=== PATIENT | male | born 1970 | race Caucasian/White ===

== ENCOUNTER 2017-01-04 16:05 | Inpatient (IN) | payer OTHER ==
[2017-01-04 17:27] VITALS: BMI 20.8
--- NOTE | 2017-01-04 19:01 | HP ---
[id number] [id number] Restless Observation: 0= Sits Still Pupil Size: 1= Pupils >than Normal Bone or Joint Aches: 2= Severe Diffuse Aches Runny Nose/ Eye Tearin= Runny Nose/Eyes GI Upset > 30mins: 1= Stomach Cramp Tremor Observation: 2= Slight Tremor Visible Yawning Observation: 1= 1-2x During Session Anxiety or Irritability: 2=Irritable/Anxious Goose Flesh Skin: 3=Piloerection COWS Score: 16 CIWA Score - CIWA Score Nausea/Vomitin-Mild Nausea/No Vomiting Muscle Tremors: 4-Moderate,w/Arms Extend Anxiety: 4-Mod. Anxious/Guarded Agitation: 4-Moderately Restless Paroxysmal Sweats: 1-Minimal Palms Moist Orientation: 3-Disoriented Date>2 days Tacttile Disturbances: 0-None Auditory Disturbances: 0-None Visual Disturbances: 0-None Headache: 0-None Present CIWA-Ar Total Score: 17 Admission ROS S - HPI Chief Complaint: WITHDRAWAL SX Allergies/Adverse Reactions: Allergies Allergy/AdvReac Type Severity Reaction Status Date / Time Fish Containing Products Allergy Intermediate Rash Verified 01/04/17 18:12 No Known Drug Allergies Allergy Verified 01/04/17 18:12 History of Present Illness: 46 YEARS OLD MALE WITH LONG HISTORY OF OPIATE AND ALCOHOL NICOTINE DEPENDENCE, DENIES MEDICAL ISSUE HAS DEPRESSION LONGEST SOBRIETY 6 MONTHS IS ADMITTED TO DETOX Exam Limitations: No Limitations - Ebola screening Have you traveled outside of the country in the last 21 days: No Have you had contact with anyone from an Ebola affected area: No Have you been sick,other than usual withdrawal symptoms: No Do you have a fever: No - Review of Systems Constitutional: Chills, Loss of Appetite, Changes in sleep, Unintentional Wgt. Loss EENT: reports: Dental Problems (2008 TEETH CRACK) Respiratory: reports: No Symptoms reported Cardiac: reports: No Symptoms Reported GI: reports: Nausea, Poor Appetite, Poor Fluid Intake, Abdominal cramping : reports: No Symptoms Reported Musculoskeletal: reports: Back Pain, Joint Pain, Muscle Pain, Neck Pain Integumentary: reports: Change in Color (INNER ELBOWS) Neuro: reports: Tremors Endocrine: reports: No Symptoms Reported Hematology: reports: No Symptoms Reported Psychiatric: reports: Judgement Intact, Orientated x3, Anxious Other Systems: Reviewed and Negative Patient History - Patient Medical History Hx Anemia: No Hx Asthma: No Hx Chronic Obstructive Pulmonary Disease (COPD): No Hx Cancer: No Hx Cardiac Disorders: No Hx Congestive Heart Failure: No Hx Hypertension: No Hx Hypercholesterolemia: No Hx Pacemaker: No HX Cerebrovascular Accident: No Hx Seizures: No Hx Dementia: No Hx Diabetes: No Hx Gastrointestinal Disorders: No Hx Liver Disease: Yes (untreated hep c) Hx Genitourinary Disorders: No Hx Sexually Transmitted Disorders: No Hx Renal Disease (ESRD): No Hx Thyroid Disease: No Hx Human Immunodeficiency Virus (HIV): No (NEGATIVE HX) Hx Hepatitis C: Yes (Not treated) Hx Depression: Yes (NOT CURRENTLY ON MEDS) Hx Suicide Attempt: No (DENIES) Hx Bipolar Disorder: No Hx Schizophrenia: No - Patient Surgical History Past Surgical History: No Hx Neurologic Surgery: No Hx Cataract Extraction: No Hx Cardiac Surgery: No Hx Lung Surgery: No Hx Breast Surgery: No Hx Breast Biopsy: No Hx Abdominal Surgery: No Hx Appendectomy: No Hx Cholecystectomy: No Hx Genitourinary Surgery: No Hx Orthopedic Surgery: No - PPD History Previous Implant?: Yes Documented Results: Negative w/proof Implanted On Prior R Admission?: Yes Date: 06/23/16 Results: 0mm PPD to be Administered?: No - Smoking Cessation Smoking history: Current every day smoker Have you smoked in the past 12 months: Yes Aproximately how many cigarettes per day: 20 Cigars Per Day: 0 Hx Chewing Tobacco Use: No Initiated information on smoking cessation: Yes 'Breaking Loose' booklet given: 01/04/17 - Substance & Tx. History Hx Alcohol Use: Yes Hx Substance Use: Yes Substance Use Type: Alcohol, Heroin, Opiates, Tranquilizers Hx Substance Use Treatment: Yes - Substances Abused Heroin Route: Injection Frequency: Daily Amount used: 20 BAGS Age of first use: 24 Date of Last Use: 01/04/17 Alcohol Route: Oral Frequency: Daily Amount used: 2 PINTS VOLKA Age of first use: 17 Date of Last Use: 01/03/17 Alprazolam (Xanax) Route: Oral Frequency: 3-6 times per week Amount used: 5 MG Age of first use: 30 Date of Last Use: 01/03/17 Family Disease History - Family Disease History Family Disease History: Diabetes: Mother, Other: Father (alcohol) Admission Physical Exam [facility] - Vital Signs Vital Signs: Vital Signs - 24 hr 01/04/17 17:25 Temperature 96.9 F L Pulse Rate 84 Respiratory 20 Rate Blood Pressure 115/81 - Physical General Appearance: Yes: Appropriately Dressed, Mild Distress, Thin, Tremorous, Irritable, Sweating, Anxious HEENTM: Yes: Hearing grossly Normal, Normal ENT Inspection, Normocephalic, Normal Voice Respiratory: Yes: Chest Non-Tender, Lungs Clear, Normal Breath Sounds, No Respiratory Distress, No Accessory Muscle Use Neck: Yes: Supple, Trachea in good position Breast: Yes: Breasts Symetrical Cardiology: Yes: Regular Rhythm, Regular Rate, S1, S2 Abdominal: Yes: Non Tender, Soft Genitourinary: Yes: Within Normal Limits Back: Yes: Normal Inspection Musculoskeletal: Yes: full range of Motion, Gait Steady, Back pain Extremities: Yes: Normal Range of Motion, Non-Tender, Tremors Neurological: Yes: Alert, Motor Strength 5/5, Normal Response, Depressed Affect Integumentary: Yes: Warm Lymphatic: Yes: Within Normal Limits - Diagnostic (1) Alcohol dependence with uncomplicated withdrawal Current Visit: Yes Status: Acute (2) Opioid dependence with withdrawal Current Visit: Yes Status: Acute (3) Recent weight loss Current Visit: Yes Status: Acute (4) Chronic low back pain Current Visit: Yes Status: Chronic Qualifiers: Back pain laterality: unspecified Sciatica presence: without sciatica Qualified Code(s): M54.5 - Low back pain; G89.29 - Other chronic pain (5) Hepatitis C Current Visit: Yes Status: Chronic Qualifiers: Viral hepatitis chronicity: chronic Hepatic coma status: without hepatic coma Qualified Code(s): B18.2 - Chronic viral hepatitis C Comment: SCHEDULE TO TREAT (6) Nicotine dependence Current Visit: Yes Status: Acute Qualifiers: Nicotine product type: cigarettes Substance use status: in withdrawal Qualified Code(s): F17.213 - Nicotine dependence, cigarettes, with withdrawal Cleared for Admission [facility] - Detox or Rehab [facility] Level of Care: Medically Managed Detox Regimen/Protocol: Methadone/Librium [facility] Breath Alcohol Content Breath Alcohol Content: 0 Urine Drug Screen - Results Drug Screen Negative: No Urine Drug Screen Results: OPI-Opiates, BZO-Benzodiazepines, MTD-Methadone, TCA- Tricyclic Antidepress, OXY-Oxycodone
[2017-01-04] MEDS ORDERED: MENTHOL/PHENOL 1 EACH UD MM PRN (19:17)
[2017-01-04] MEDS ORDERED: P-EPHED 60MG/TRIPROLIDI 2.5MG TABLET PO PRN (19:17)
[2017-01-04] MEDS ORDERED: MAGNESIUM CITRATE 300 ML BOTTLE PO PRN (19:17)
[2017-01-04] MEDS ORDERED: guaiFENesin/D-METHORPHAN HB 10 ML UNIT-DOSE CUPS PO PRN (19:17)
[2017-01-04] MEDS ORDERED: METHADONE HCL 10 MG TABLET (FOR DETOX USE ONLY) PO ONE ×2 (19:17→23:00)
[2017-01-04] MEDS ORDERED: LOPERAMIDE HCL 2 MG CAPSULE PO PRN (19:17)
[2017-01-04] MEDS ORDERED: MAG HYDROX/AL HYDROX/SIMETH 30 ML UNIT-DOSE CUP PO PRN (19:17)
[2017-01-04] MEDS ORDERED: MAGNESIUM HYDROX 2400MG/30ML ORAL SUSPENSION 30 ML CUP PO PRN (19:17)
[2017-01-04] MEDS ORDERED: NICOTINE POLACRILEX 4 MG GUM BC PRN (19:17)
[2017-01-04] MEDS: chlordiazePOXIDE HCL 25 MG CAPSULE PO PRN (19:55)
[2017-01-04] MEDS: CYCLOBENZAPRINE HCL 10 MG TABLET (FP) PO PRN (19:57)
[2017-01-04] MEDS: THIAMINE HCL 100 MG TABLET (FP) PO SCH (22:11)
[2017-01-04] MEDS: chlordiazePOXIDE HCL 25 MG CAPSULE PO SCH (22:11)
[2017-01-04] MEDS: diphenhydrAMINE HCL 50 MG CAPSULE PO PRN (22:11)
[2017-01-04 23:02] LABS: URINE APPEARANCE CLEAR; URINE BILIRUBIN NEGATIVE (NEGATIVE); URINE BLOOD NEGATIVE (NEGATIVE); URINE COLOR DKYELLOW; URINE GLUCOSE (UA) NEGATIVE (NEGATIVE); URINE KETONE NEGATIVE (NEGATIVE); URINE LEUK ESTERASE NEGATIVE (NEGATIVE); URINE NITRITE NEGATIVE (NEGATIVE); URINE PROTEIN NEGATIVE (NEGATIVE); URINE UROBILINOGEN 2.0 E.U/dl E.U./dl (0.2-1.0)
[2017-01-05] MEDS: chlordiazePOXIDE HCL 25 MG CAPSULE PO SCH ×4 (06:05→22:20)
[2017-01-05] MEDS: CYCLOBENZAPRINE HCL 10 MG TABLET (FP) PO PRN ×3 (06:07→22:20)
--- NOTE | 2017-01-05 07:37 | CONSULT ---
[facility] Psychiatric Consult - Data Date of interview: 01/05/17 Admission source: [facility] Identifying data: This is 46 years old male with no psychiatric hospitalization history intoxicated wuthL: Alcohol, Heroin, Xanax, Cocaine, Nicotine Substance Abuse History: - Smoking Cessation. Smoking history: Current every day smoker. Have you smoked in the past 12 months: Yes. Aproximately how many cigarettes per day: 20. Cigars Per Day: 0. Hx Chewing Tobacco Use: No. Initiated information on smoking cessation: Yes. 'Breaking Loose' booklet given : 01/04/17. - Substance & Tx. History. Hx Alcohol Use: Yes. Hx Substance Use : Yes. Substance Use Type: Alcohol, Heroin, Opiates, Tranquilizers. Hx Substance Use Treatment: Yes. - Substances Abused. Heroin. Route: Injection. Frequency: Daily. Amount used: 20 BAGS. Age of first use: 24. Date of Last Use: 01/04/17. Alcohol. Route: Oral. Frequency: Daily. Amount used: 2 PINTS VOLKA. Age of first use: 17. Date of Last Use: 01/03/17. Alprazolam (Xanax). Route: Oral. Frequency: 3-6 times per week. Amount used: 5 MG. Age of first use: 30. Date of Last Use: 01/03/17 Medical History: Weight loss history, HepC+, LBP, Hstory of Blackouts, Cellulitis history Psychiatric History: Patient reprots no past psychiatric history Physical/Sexual Abuse/Trauma History: Denies Additional Comment: Observation. Detox Unit Care Protocol Mental Status Exam - Mental Status Exam Alert and Oriented to: Person Cognitive Function: Fair Patient Appearance: Unkempt Mood: Sad Affect: Flat Patient Behavior: Sedated Speech Pattern: Delayed Voice Loudness: Mildly Soft/Quiet Thought Process: Circumstantial Thought Disorder: Being Controlled Hallucinations: Denies Suicidal Ideation: Denies Homicidal Ideation: Denies Insight/Judgement: Fair Sleep: Difficulty falling asleep Appetite: Weight loss Muscle strength/Tone: Mild Hypotonicity Gait/Station: Shuffling Additional Comments: Observation. Detox Unit Care Protocol Psychiatric Findings - Problem List ([place] 1, 2,3) (1) Alcohol dependence with uncomplicated withdrawal Current Visit: Yes Status: Acute (2) Nicotine dependence Current Visit: Yes Status: Acute Qualifiers: Nicotine product type: cigarettes Substance use status: in withdrawal Qualified Code(s): F17.213 - Nicotine dependence, cigarettes, with withdrawal (3) Opioid dependence with withdrawal Current Visit: Yes Status: Acute (4) Recent weight loss Current Visit: Yes Status: Acute (5) Blackout Current Visit: No Status: Acute (6) Opioid-induced sleep disorder Current Visit: No Status: Acute (7) Substance-induced anxiety disorder Current Visit: No Status: Acute (8) Substance-induced sleep disorder Current Visit: No Status: Acute (9) Uncomplicated sedative, hypnotic or anxiolytic withdrawal Current Visit: No Status: Acute (10) Drug-induced mood disorder Current Visit: No Status: Chronic - Initial Treatment Plan Initial Treatment Plan: Observation. Detox Unit Care Protocol
[2017-01-05] MEDS ORDERED: METHADONE HCL 10 MG TABLET (FOR DETOX USE ONLY) PO SCH (10:00)
[2017-01-05 10:21] LABS: MCH 27.9 pg (25.7-33.7); MCHC 33.1 g/dl (32.0-35.9); MEAN CELL VOLUME 84.3 fl (80-96); MEAN PLT VOLUME 8.8 fl (7.5-11.1); PLATELET COUNT 205 K/MM3 (134-434); RDW 13.6 % (11.9-15.9); WHITE BLOOD COUNT 6.2 K/mm3 (4.0-10.0)
[2017-01-05 10:35] LABS: ALK PHOS 59 U/L (45-117); ANION GAP 7 (8-16); BILIRUBIN,TOTAL 0.4 mg/dL (0.2-1.0); CALCIUM 8.5 mg/dL (8.5-10.1); CO2 29 mmol/L (21-32); CREATININE 0.8 mg/dL (0.7-1.3); GLUCOSE,RANDOM 98 mg/dL (74-106); SGOT/AST 26 U/L (15-37); SGPT/ALT 54 U/L (12-78); TOT PROT 6.6 g/dl (6.4-8.2)
[2017-01-05] MEDS: NICOTINE 21 MG/24 HOURS TOPICAL PATCH TD SCH (10:43)
--- NOTE | 2017-01-05 10:49 | PN ---
[facility] CIWA - CIWA Score Nausea/Vomitin-No Nausea/No Vomiting Muscle Tremors: 3 Anxiety: 3 Agitation: 4-Moderately Restless Paroxysmal Sweats: 3 Orientation: 0-Oriented Tacttile Disturbances: 0-None Auditory Disturbances: 0-None Visual Disturbances: 0-None Headache: 1-Very Mild CIWA-Ar Total Score: 14 BHS COWS - Scale Resting Pulse: 1= [place] 81-100 Sweatin=Flushed/Facial Moisture Restless Observation: 1= Difficult to Sit Still Pupil Size: 0= Normal to Room Light Bone or Joint Aches: 2= Severe Diffuse Aches Runny Nose/ Eye Tearin= Nasal Congestion GI Upset > 30mins: 1= Stomach Cramp Tremor Observation of Outstretched Hands: 2= Slight Tremor Visible Yawning Observation: 2= >3x During Session Anxiety or Irritability: 2=Irritable/Anxious Goose Flesh Skin: 0=Smooth Skin COWS Score: 14 S Progress Note (SOAP) Subjective: agitation anxiety sweats body aches irritable Objective: 01/05/17 10:48 Vital Signs Temperature 97.0 F L 01/05/17 10:00 Pulse Rate 81 01/05/17 10:00 Respiratory Rate 18 01/05/17 10:00 Blood Pressure 108/58 01/05/17 10:00 O2 Sat by Pulse Oximetry (%) Laboratory Tests 01/04/17 01/05/17 22:01 07:50 WBC 6.2 RBC 4.30 Hgb 12.0 Hct 36.3 MCV 84.3 MCHC 33.1 RDW 13.6 Plt Count 205 MPV 8.8 Urine Color Dkyellow Urine Appearance Clear Urine pH 6.0 Ur Specific [place] 1.030 Urine Protein Negative Urine Glucose (UA) Negative Urine Ketones Negative Urine Blood Negative Urine Nitrite Negative Urine Bilirubin Negative Urine Urobilinogen 2.0 e.u/dl Ur Leukocyte Esterase Negative labs pending awake/alert ambulating no acute distress Assessment: 01/05/17 10:49 withdrawal sx Plan: continue detox increase fluids labs pending
[2017-01-05] MEDS: PRENATAL VITAMINS W/ FOLIC ACID TABLET (FP) PO SCH (10:51)
[2017-01-05] MEDS: LIDOCAINE 5% TOPICAL PATCH TP SCH (10:52)
[2017-01-05 11:38] LABS: HIV 1 & 2 AB NEGATIVE; HIV 1 AGp24 NEGATIVE
[2017-01-05] MEDS ORDERED: COLLOIDAL OATMEAL 1 BAR EACH TP PRN (12:12)
[2017-01-05] MEDS: AMMONIUM LACTATE 12% LOTION 225 GM BOTTLE TP SCH ×2 (14:15→22:19)
[2017-01-05] MEDS: chlordiazePOXIDE HCL 25 MG CAPSULE PO PRN (14:15)
--- NOTE | 2017-01-05 16:12 | EKG ---
Test Reason : Blood Pressure : / mmHG Vent. Rate : 068 BPM Atrial Rate : 068 BPM P-R Int : 184 ms QRS Dur : 090 ms QT Int : 364 ms P-R-T Axes : 070 083 056 degrees QTc Int : 387 ms NORMAL SINUS RHYTHM NONSPECIFIC ST ABNORMALITY ABNORMAL ECG NO PREVIOUS ECGS AVAILABLE Confirmed by DOMINGO AMBROCIO MD ([id number]) on 01/05/2017 4:11:46 PM Referred By: Confirmed By:DOMINGO AMBROCIO MD
[2017-01-05] MEDS: THIAMINE HCL 100 MG TABLET (FP) PO SCH (22:20)
[2017-01-05] MEDS: diphenhydrAMINE HCL 50 MG CAPSULE PO PRN (23:07)
[2017-01-06] MEDS: chlordiazePOXIDE HCL 25 MG CAPSULE PO SCH ×3 (05:25→18:07)
[2017-01-06] MEDS: CYCLOBENZAPRINE HCL 10 MG TABLET (FP) PO PRN ×3 (05:26→22:44)
--- NOTE | 2017-01-06 09:52 | PN ---
S CIWA - CIWA Score Nausea/Vomitin Muscle Tremors: 2 Anxiety: 2 Agitation: 2 Paroxysmal Sweats: 3 Orientation: 0-Oriented Tacttile Disturbances: 2-Mild Itch/Numbness/Burn Auditory Disturbances: 0-None Visual Disturbances: 0-None Headache: 0-None Present CIWA-Ar Total Score: 13 BHS COWS - Scale Resting Pulse: 0= [place] 80 or Below Sweatin= Chills/Flushing Restless Observation: 1= Difficult to Sit Still Pupil Size: 1= Pupils >than Normal Bone or Joint Aches: 2= Severe Diffuse Aches Runny Nose/ Eye Tearin= Nasal Congestion GI Upset > 30mins: 1= Stomach Cramp Tremor Observation of Outstretched Hands: 1= Tremor [place], Not Seen Yawning Observation: 0= None Anxiety or Irritability: 2=Irritable/Anxious Goose Flesh Skin: 0=Smooth Skin COWS Score: 10 S Progress Note (SOAP) Subjective: interrupted sleep, decreased appetite , lbp Objective: 01/06/17 09:50 Vital Signs Temperature 97.5 F L 01/06/17 07:02 Pulse Rate 62 01/06/17 07:02 Respiratory Rate 16 01/06/17 07:02 Blood Pressure 102/61 01/06/17 07:02 O2 Sat by Pulse Oximetry (%) Laboratory Tests 01/04/17 01/05/17 01/05/17 22:01 06:20 07:50 WBC 6.2 RBC 4.30 Hgb 12.0 Hct 36.3 MCV 84.3 MCHC 33.1 RDW 13.6 Plt Count 205 MPV 8.8 Sodium Potassium Chloride Carbon Dioxide Anion Gap BUN Creatinine Creat Clearance w eGFR Random Glucose Calcium Total Bilirubin AST ALT Alkaline Phosphatase Total Protein Albumin Urine Color Dkyellow Urine Appearance Clear Urine pH 6.0 Ur Specific [place] 1.030 Urine Protein Negative Urine Glucose (UA) Negative Urine Ketones Negative Urine Blood Negative Urine Nitrite Negative Urine Bilirubin Negative Urine Urobilinogen 2.0 e.u/dl Ur Leukocyte Esterase Negative RPR Titer HIV 1&2 Antibody Screen Negative HIV P24 Antigen Negative 01/05/17 01/05/17 07:50 07:50 WBC RBC Hgb Hct MCV MCHC RDW Plt Count MPV Sodium 144 Potassium 3.6 Chloride 108 H Carbon Dioxide 29 Anion Gap 7 L BUN 9 D Creatinine 0.8 Creat Clearance w eGFR > 60 Random Glucose 98 D Calcium 8.5 Total Bilirubin 0.4 AST 26 D ALT 54 D Alkaline Phosphatase 59 Total Protein 6.6 Albumin 3.0 L Urine Color Urine Appearance Urine pH Ur Specific [place] Urine Protein Urine Glucose (UA) Urine Ketones Urine Blood Urine Nitrite Urine Bilirubin Urine Urobilinogen Ur Leukocyte Esterase RPR Titer Nonreactive HIV 1&2 Antibody Screen HIV P24 Antigen 01/06/17 11:26 pt aox3 in nad ambulating Assessment: 01/06/17 09:50 withdrawal sx;s Plan: cont detox increase fluids cont flexeril
[2017-01-06] MEDS: LIDOCAINE 5% TOPICAL PATCH TP SCH (10:51)
[2017-01-06] MEDS: PRENATAL VITAMINS W/ FOLIC ACID TABLET (FP) PO SCH (10:51)
[2017-01-06] MEDS: METHADONE HCL 5 MG TABLET (FOR DETOX USE ONLY) PO SCH (10:51)
[2017-01-06] MEDS: NICOTINE 21 MG/24 HOURS TOPICAL PATCH TD SCH (10:52)
[2017-01-06] MEDS: AMMONIUM LACTATE 12% LOTION 225 GM BOTTLE TP SCH ×2 (13:31→22:46)
[2017-01-06] MEDS: chlordiazePOXIDE HCL 25 MG CAPSULE PO PRN (14:20)
[2017-01-06] MEDS: THIAMINE HCL 100 MG TABLET (FP) PO SCH (22:44)
[2017-01-06] MEDS: diphenhydrAMINE HCL 50 MG CAPSULE PO PRN (22:44)
[2017-01-06] MEDS: chlordiazePOXIDE 5 MG CAPSULE PO SCH (22:44)
[2017-01-07] MEDS: diphenhydrAMINE HCL 50 MG CAPSULE PO PRN ×2 (02:56→22:44)
[2017-01-07] MEDS: IBUPROFEN 400 MG TABLET (FP) PO PRN ×3 (02:56→17:14)
[2017-01-07] MEDS: chlordiazePOXIDE 5 MG CAPSULE PO SCH ×3 (05:15→17:13)
[2017-01-07] MEDS: CYCLOBENZAPRINE HCL 10 MG TABLET (FP) PO PRN ×3 (05:17→22:44)
[2017-01-07] MEDS: PRENATAL VITAMINS W/ FOLIC ACID TABLET (FP) PO SCH (10:33)
[2017-01-07] MEDS: METHADONE HCL 5 MG TABLET (FOR DETOX USE ONLY) PO SCH (10:33)
[2017-01-07] MEDS: AMMONIUM LACTATE 12% LOTION 225 GM BOTTLE TP SCH ×2 (10:33→23:59)
[2017-01-07] MEDS: NICOTINE 21 MG/24 HOURS TOPICAL PATCH TD SCH (10:34)
[2017-01-07] MEDS: LIDOCAINE 5% TOPICAL PATCH TP SCH (10:38)
[2017-01-07] MEDS: ACETAMINOPHEN 325 MG TABLET (FP) PO PRN (14:03)
--- NOTE | 2017-01-07 14:48 | PN ---
S Progress Note (SOAP) Subjective: Sweating, Tremors, lower Back ache. Objective: PT. A & O X 3, OBSERVED AMBULATING ON UNIT. 01/07/17 14:46 Vital Signs Temperature 97.9 F 01/07/17 14:31 Pulse Rate 92 H 01/07/17 14:31 Respiratory Rate 20 01/07/17 14:31 Blood Pressure 131/72 01/07/17 14:31 O2 Sat by Pulse Oximetry (%) Laboratory Last Values WBC 6.2 K/mm3 (4.0-10.0) 01/05/17 07:50 RBC 4.30 M/mm3 (4.00-5.60) 01/05/17 07:50 Hgb 12.0 GM/dL (11.7-16.9) 01/05/17 07:50 Hct 36.3 % (35.4-49) 01/05/17 07:50 MCV 84.3 fl (80-96) 01/05/17 07:50 MCHC 33.1 g/dl (32.0-35.9) 01/05/17 07:50 RDW 13.6 % (11.9-15.9) 01/05/17 07:50 Plt Count 205 K/MM3 (134-434) 01/05/17 07:50 MPV 8.8 fl (7.5-11.1) 01/05/17 07:50 Sodium 144 mmol/L (136-145) 01/05/17 07:50 Potassium 3.6 mmol/L (3.5-5.1) 01/05/17 07:50 Chloride 108 mmol/L (98-107) H 01/05/17 07:50 Carbon Dioxide 29 mmol/L (21-32) 01/05/17 07:50 Anion Gap 7 (8-16) L 01/05/17 07:50 BUN 9 mg/dL (7-18) D 01/05/17 07:50 Creatinine 0.8 mg/dL (0.7-1.3) 01/05/17 07:50 Creat Clearance w eGFR > 60 (>60) 01/05/17 07:50 Random Glucose 98 mg/dL (74-106) D 01/05/17 07:50 Calcium 8.5 mg/dL (8.5-10.1) 01/05/17 07:50 Total Bilirubin 0.4 mg/dL (0.2-1.0) 01/05/17 07:50 AST 26 U/L (15-37) D 01/05/17 07:50 ALT 54 U/L (12-78) D 01/05/17 07:50 Alkaline Phosphatase 59 U/L (45-117) 01/05/17 07:50 Total Protein 6.6 g/dl (6.4-8.2) 01/05/17 07:50 Albumin 3.0 g/dl (3.4-5.0) L 01/05/17 07:50 Urine Color Dkyellow 01/04/17 22:01 Urine Appearance Clear 01/04/17 22:01 Urine pH 6.0 (5.0-8.0) 01/04/17 22:01 Ur Specific [place] 1.030 (1.001-1.035) 01/04/17 22:01 Urine Protein Negative (NEGATIVE) 01/04/17 22:01 Urine Glucose (UA) Negative (NEGATIVE) 01/04/17 22:01 Urine Ketones Negative (NEGATIVE) 01/04/17 22:01 Urine Blood Negative (NEGATIVE) 01/04/17 22:01 Urine Nitrite Negative (NEGATIVE) 01/04/17 22:01 Urine Bilirubin Negative (NEGATIVE) 01/04/17 22:01 Urine Urobilinogen 2.0 e.u/dl E.U./dl (0.2-1.0) 01/04/17 22:01 Ur Leukocyte Esterase Negative (NEGATIVE) 01/04/17 22:01 RPR Titer Nonreactive (NONREACTIVE) 01/05/17 07:50 HIV 1&2 Antibody Screen Negative 01/05/17 06:20 HIV P24 Antigen Negative 01/05/17 06:20 LABS NOTED. Assessment: 01/07/17 14:47 WITHDRAWAL SYMPTOMS. Plan: CONTINUE DETOX.
[2017-01-07] MEDS: THIAMINE HCL 100 MG TABLET (FP) PO SCH (22:44)
[2017-01-07] MEDS: chlordiazePOXIDE HCL 10 MG CAPSULE PO SCH (22:44)
[2017-01-08] MEDS: IBUPROFEN 400 MG TABLET (FP) PO PRN ×2 (05:13→15:25)
[2017-01-08] MEDS: chlordiazePOXIDE HCL 10 MG CAPSULE PO SCH ×3 (05:13→17:26)
[2017-01-08] MEDS: CYCLOBENZAPRINE HCL 10 MG TABLET (FP) PO PRN ×4 (05:15→22:13)
[2017-01-08] MEDS ORDERED: METHADONE HCL 10 MG TABLET (FOR DETOX USE ONLY) PO SCH (10:00)
[2017-01-08] MEDS: PRENATAL VITAMINS W/ FOLIC ACID TABLET (FP) PO SCH (10:28)
[2017-01-08] MEDS: AMMONIUM LACTATE 12% LOTION 225 GM BOTTLE TP SCH ×2 (10:28→22:39)
[2017-01-08] MEDS: LIDOCAINE 5% TOPICAL PATCH TP SCH (10:28)
[2017-01-08] MEDS: NICOTINE 21 MG/24 HOURS TOPICAL PATCH TD SCH (10:29)
--- NOTE | 2017-01-08 12:34 | PN ---
BHS Progress Note (SOAP) Subjective: Shakes, sweats and generalized body aches Objective: 01/08/17 12:33 NAD Vital Signs - 8 hr 01/08/17 01/08/17 06:00 10:00 Temperature 98.1 F 97.3 F L Pulse Rate 79 81 Respiratory 18 16 Rate Blood Pressure 132/80 131/68 Laboratory Last Values WBC 6.2 K/mm3 (4.0-10.0) 01/05/17 07:50 RBC 4.30 M/mm3 (4.00-5.60) 01/05/17 07:50 Hgb 12.0 GM/dL (11.7-16.9) 01/05/17 07:50 Hct 36.3 % (35.4-49) 01/05/17 07:50 MCV 84.3 fl (80-96) 01/05/17 07:50 MCHC 33.1 g/dl (32.0-35.9) 01/05/17 07:50 RDW 13.6 % (11.9-15.9) 01/05/17 07:50 Plt Count 205 K/MM3 (134-434) 01/05/17 07:50 MPV 8.8 fl (7.5-11.1) 01/05/17 07:50 Sodium 144 mmol/L (136-145) 01/05/17 07:50 Potassium 3.6 mmol/L (3.5-5.1) 01/05/17 07:50 Chloride 108 mmol/L (98-107) H 01/05/17 07:50 Carbon Dioxide 29 mmol/L (21-32) 01/05/17 07:50 Anion Gap 7 (8-16) L 01/05/17 07:50 BUN 9 mg/dL (7-18) D 01/05/17 07:50 Creatinine 0.8 mg/dL (0.7-1.3) 01/05/17 07:50 Creat Clearance w eGFR > 60 (>60) 01/05/17 07:50 Random Glucose 98 mg/dL (74-106) D 01/05/17 07:50 Calcium 8.5 mg/dL (8.5-10.1) 01/05/17 07:50 Total Bilirubin 0.4 mg/dL (0.2-1.0) 01/05/17 07:50 AST 26 U/L (15-37) D 01/05/17 07:50 ALT 54 U/L (12-78) D 01/05/17 07:50 Alkaline Phosphatase 59 U/L (45-117) 01/05/17 07:50 Total Protein 6.6 g/dl (6.4-8.2) 01/05/17 07:50 Albumin 3.0 g/dl (3.4-5.0) L 01/05/17 07:50 Urine Color Dkyellow 01/04/17 22:01 Urine Appearance Clear 01/04/17 22:01 Urine pH 6.0 (5.0-8.0) 01/04/17 22:01 Ur Specific [place] 1.030 (1.001-1.035) 01/04/17 22:01 Urine Protein Negative (NEGATIVE) 01/04/17 22:01 Urine Glucose (UA) Negative (NEGATIVE) 01/04/17 22:01 Urine Ketones Negative (NEGATIVE) 01/04/17 22:01 Urine Blood Negative (NEGATIVE) 01/04/17 22:01 Urine Nitrite Negative (NEGATIVE) 01/04/17 22:01 Urine Bilirubin Negative (NEGATIVE) 01/04/17 22:01 Urine Urobilinogen 2.0 e.u/dl E.U./dl (0.2-1.0) 01/04/17 22:01 Ur Leukocyte Esterase Negative (NEGATIVE) 01/04/17 22:01 RPR Titer Nonreactive (NONREACTIVE) 01/05/17 07:50 HIV 1&2 Antibody Screen Negative 01/05/17 06:20 HIV P24 Antigen Negative 01/05/17 06:20 Labs noted Assessment: 01/08/17 12:33 withdrawal sx Plan: continue detox
[2017-01-08] MEDS: ACETAMINOPHEN 325 MG TABLET (FP) PO PRN (22:13)
[2017-01-08] MEDS: THIAMINE HCL 100 MG TABLET (FP) PO SCH (22:13)
[2017-01-08] MEDS: diphenhydrAMINE HCL 50 MG CAPSULE PO PRN (22:13)
[2017-01-09] MEDS: IBUPROFEN 400 MG TABLET (FP) PO PRN (05:23)
[2017-01-09] MEDS: CYCLOBENZAPRINE HCL 10 MG TABLET (FP) PO PRN (05:23)
[2017-01-09] MEDS ORDERED: METHADONE HCL 5 MG TABLET (FOR DETOX USE ONLY) PO SCH (06:00)
[2017-01-09 06:43] VITALS: BP 135/62; PULSE 71; TEMP 97.5
--- NOTE | 2017-01-09 10:16 | DS ---
[facility] Detox Discharge Summary Admission Date: 01/04/17 Discharge Date: 01/09/17 - History Present History: Alcohol Dependence, Opioid Dependence, Sedative Dependence Pertinent Past History: Hep C - untreated Smoker - Physical Exam Results Vital Signs: Vital Signs Temperature 97.5 F L 01/09/17 06:00 Pulse Rate 71 01/09/17 06:00 Respiratory Rate 18 01/09/17 06:00 Blood Pressure 135/62 01/09/17 06:00 O2 Sat by Pulse Oximetry (%) Laboratory Last Values WBC 6.2 K/mm3 (4.0-10.0) 01/05/17 07:50 RBC 4.30 M/mm3 (4.00-5.60) 01/05/17 07:50 Hgb 12.0 GM/dL (11.7-16.9) 01/05/17 07:50 Hct 36.3 % (35.4-49) 01/05/17 07:50 MCV 84.3 fl (80-96) 01/05/17 07:50 MCHC 33.1 g/dl (32.0-35.9) 01/05/17 07:50 RDW 13.6 % (11.9-15.9) 01/05/17 07:50 Plt Count 205 K/MM3 (134-434) 01/05/17 07:50 MPV 8.8 fl (7.5-11.1) 01/05/17 07:50 Sodium 144 mmol/L (136-145) 01/05/17 07:50 Potassium 3.6 mmol/L (3.5-5.1) 01/05/17 07:50 Chloride 108 mmol/L (98-107) H 01/05/17 07:50 Carbon Dioxide 29 mmol/L (21-32) 01/05/17 07:50 Anion Gap 7 (8-16) L 01/05/17 07:50 BUN 9 mg/dL (7-18) D 01/05/17 07:50 Creatinine 0.8 mg/dL (0.7-1.3) 01/05/17 07:50 Creat Clearance w eGFR > 60 (>60) 01/05/17 07:50 Random Glucose 98 mg/dL (74-106) D 01/05/17 07:50 Calcium 8.5 mg/dL (8.5-10.1) 01/05/17 07:50 Total Bilirubin 0.4 mg/dL (0.2-1.0) 01/05/17 07:50 AST 26 U/L (15-37) D 01/05/17 07:50 ALT 54 U/L (12-78) D 01/05/17 07:50 Alkaline Phosphatase 59 U/L (45-117) 01/05/17 07:50 Total Protein 6.6 g/dl (6.4-8.2) 01/05/17 07:50 Albumin 3.0 g/dl (3.4-5.0) L 01/05/17 07:50 Urine Color Dkyellow 01/04/17 22:01 Urine Appearance Clear 01/04/17 22:01 Urine pH 6.0 (5.0-8.0) 01/04/17 22:01 Ur Specific [place] 1.030 (1.001-1.035) 01/04/17 22:01 Urine Protein Negative (NEGATIVE) 01/04/17 22:01 Urine Glucose (UA) Negative (NEGATIVE) 01/04/17 22:01 Urine Ketones Negative (NEGATIVE) 01/04/17 22:01 Urine Blood Negative (NEGATIVE) 01/04/17 22:01 Urine Nitrite Negative (NEGATIVE) 01/04/17 22:01 Urine Bilirubin Negative (NEGATIVE) 01/04/17 22:01 Urine Urobilinogen 2.0 e.u/dl E.U./dl (0.2-1.0) 01/04/17 22:01 Ur Leukocyte Esterase Negative (NEGATIVE) 01/04/17 22:01 RPR Titer Nonreactive (NONREACTIVE) 01/05/17 07:50 HIV 1&2 Antibody Screen Negative 01/05/17 06:20 HIV P24 Antigen Negative 01/05/17 06:20 labs noted Pertinent Admission Physical Exam Findings: withdrawal symptoms - Treatment Hospital Course: Detox Protocol Followed, Detoxed Safely, Responded well, Discharged Condition Good - Medication Discharge Medications: Ambulatory Orders NK [No Known Home Medication] 01/04/17 - Diagnosis (1) Alcohol dependence with uncomplicated withdrawal Status: Acute (2) Blackout Status: Acute (3) Nicotine dependence Status: Acute Qualifiers: Nicotine product type: cigarettes Substance use status: in withdrawal Qualified Code(s): F17.213 - Nicotine dependence, cigarettes, with withdrawal (4) Opioid dependence with withdrawal Status: Acute (5) Opioid-induced sleep disorder Status: Acute (6) Recent weight loss Status: Acute (7) Substance-induced anxiety disorder Status: Acute (8) Substance-induced sleep disorder Status: Acute (9) Uncomplicated sedative, hypnotic or anxiolytic withdrawal Status: Acute (10) Anxiety disorder Status: Chronic (11) Drug-induced mood disorder Status: Chronic (12) Hepatitis C Status: Chronic Qualifiers: Viral hepatitis chronicity: chronic Hepatic coma status: without hepatic coma Qualified Code(s): B18.2 - Chronic viral hepatitis C - AMA Did Patient Leave Against Medical Advice: No
== END 2017-01-09 09:42 | disposition home or self-care (01) | DRG 773 ==
LOC: YASAS 16:05 → Y6N 18:49
PROVIDERS: ADMIT Internal Medicine Addiction Medicine; ATTEND Internal Medicine Addiction Medicine
PROC: HZ2ZZZZ Detoxification Services for Substance Abuse Treatment (ICD-10-PCS; principal; 2017-01-09)
DX: F11.23 Opioid dependence with withdrawal (principal); F13.230 Sedative, hypnotic or anxiolytic dependence with withdrawal, uncomplicated; F17.210 Nicotine dependence, cigarettes, uncomplicated; F19.282 Other psychoactive substance dependence with psychoactive substance-induced sleep disorder; F19.280 Other psychoactive substance dependence with psychoactive substance-induced anxiety disorder; F19.24 Other psychoactive substance dependence with psychoactive substance-induced mood disorder; B18.2 Chronic viral hepatitis C; R55 Syncope and collapse; M54.5 Low back pain; R63.4 Abnormal weight loss; Z68.20 Body mass index [BMI] 20.0-20.9, adult
CPT/HCPCS: 36415; 80053; 81003; 85027; 86593; 87389; 93005; 93010

== ENCOUNTER 2017-02-04 12:52 | Inpatient (IN) | payer OTHER ==
[2017-02-04 15:16] VITALS: BMI 21.7
--- NOTE | 2017-02-04 18:42 | HP ---
COWS - Scale Resting Pulse: 1= [place] 81-100 Sweatin= Chills/Flushing Restless Observation: 1= Difficult to Sit Still Pupil Size: 0= Normal to Room Light Bone or Joint Aches: 2= Severe Diffuse Aches Runny Nose/ Eye Tearin= Runny Nose/Eyes GI Upset > 30mins: 2= Nausea/Diarrhea Tremor Observation: 2= Slight Tremor Visible Yawning Observation: 0= None Anxiety or Irritability: 2=Irritable/Anxious Goose Flesh Skin: 3=Piloerection COWS Score: 16 CIWA Score - CIWA Score Nausea/Vomitin-Mild Nausea/No Vomiting Muscle Tremors: 4-Moderate,w/Arms Extend Anxiety: 4-Mod. Anxious/Guarded Agitation: 4-Moderately Restless Paroxysmal Sweats: 1-Minimal Palms Moist Orientation: 2-Disoriented Date<2 days Tacttile Disturbances: 0-None Auditory Disturbances: 0-None Visual Disturbances: 0-None Headache: 0-None Present CIWA-Ar Total Score: 16 Admission [facility] Chief Complaint: WITHDRAWAL SX Allergies/Adverse Reactions: Allergies Allergy/AdvReac Type Severity Reaction Status Date / Time Fish Containing Products Allergy Intermediate Rash Verified 02/04/17 18:07 No Known Drug Allergies Allergy Verified 02/04/17 18:07 History of Present Illness: 46 YEARS OLD MALE WITH LONG HISTORY OF OPIATE ALCOHOL XANAX DEPENDENCE DENIES MEDICAL DENIES MENTAL ILLNESS IS ADMITTED TO DETOX Exam Limitations: No Limitations - Ebola screening Have you traveled outside of the country in the last 21 days: No Have you had contact with anyone from an Ebola affected area: No Have you been sick,other than usual withdrawal symptoms: No Do you have a fever: No - Review of Systems Constitutional: Chills, Loss of Appetite, Changes in sleep, Unintentional Wgt. Loss, Unexplained wgt Loss EENT: reports: No Symptoms Reported Respiratory: reports: No Symptoms reported Cardiac: reports: No Symptoms Reported GI: reports: Diarrhea, Nausea, Poor Appetite, Poor Fluid Intake, Abdominal cramping : reports: No Symptoms Reported Musculoskeletal: reports: Back Pain Integumentary: reports: Change in Color (RIGHT INNER ELBOW) Neuro: reports: Tremors Endocrine: reports: No Symptoms Reported Hematology: reports: No Symptoms Reported Psychiatric: reports: Judgement Intact, Depressed Other Systems: Reviewed and Negative Patient History - Patient Medical History Hx Anemia: No Hx Asthma: No Hx Chronic Obstructive Pulmonary Disease (COPD): No Hx Cancer: No Hx Cardiac Disorders: No Hx Congestive Heart Failure: No Hx Hypertension: No Hx Hypercholesterolemia: No Hx Pacemaker: No HX Cerebrovascular Accident: No Hx Seizures: No Hx Dementia: No Hx Diabetes: No Hx Gastrointestinal Disorders: No Hx Liver Disease: Yes (untreated hep c) Hx Genitourinary Disorders: No Hx Sexually Transmitted Disorders: No Hx Renal Disease (ESRD): No Hx Thyroid Disease: No Hx Human Immunodeficiency Virus (HIV): No (NEGATIVE HX) Hx Hepatitis C: Yes (Not treated) Hx Depression: Yes Hx Suicide Attempt: No (DENIES) Hx Bipolar Disorder: No Hx Schizophrenia: No - Patient Surgical History Past Surgical History: No Hx Neurologic Surgery: No Hx Cataract Extraction: No Hx Cardiac Surgery: No Hx Lung Surgery: No Hx Breast Surgery: No Hx Breast Biopsy: No Hx Abdominal Surgery: No Hx Appendectomy: No Hx Cholecystectomy: No Hx Genitourinary Surgery: No Hx Orthopedic Surgery: No - PPD History Previous Implant?: Yes Documented Results: Negative w/proof Implanted On Prior R Admission?: Yes Date: 06/23/16 Results: 0mm PPD to be Administered?: No - Smoking Cessation Smoking history: Current every day smoker Have you smoked in the past 12 months: Yes Aproximately how many cigarettes per day: 20 Cigars Per Day: 0 Hx Chewing Tobacco Use: No Initiated information on smoking cessation: Yes 'Breaking Loose' booklet given: 02/04/17 - Substance & Tx. History Hx Alcohol Use: Yes Hx Substance Use: Yes Substance Use Type: Alcohol, Opiates, Tranquilizers Hx Substance Use Treatment: Yes - Substances Abused Alcohol Route: Oral Frequency: Daily Amount used: LIQUOR- 2 PINTS Age of first use: 17 Date of Last Use: 02/04/17 Alprazolam (Xanax) Route: Oral Frequency: Daily Amount used: 2 mg Age of first use: 40 Date of Last Use: 02/04/17 Heroin Route: Injection Frequency: Daily Amount used: 20 bags Age of first use: 24 Date of Last Use: 02/04/17 Family Disease History - Family Disease History Family Disease History: Diabetes: Mother, Other: Father (alcohol) Admission Physical Exam BHS - Vital Signs Vital Signs: Vital Signs - 24 hr 02/04/17 15:14 Temperature 97.8 F Pulse Rate 87 Respiratory 18 Rate Blood Pressure 135/77 - Physical General Appearance: Yes: Appropriately Dressed, Mild Distress, Alcohol on Breath , Thin, Tremorous, Irritable, Sweating, Anxious HEENTM: Yes: Hearing grossly Normal, Normal ENT Inspection, Normocephalic, Normal Voice Respiratory: Yes: Chest Non-Tender, Lungs Clear, Normal Breath Sounds, No Respiratory Distress, No Accessory Muscle Use Neck: Yes: Supple, Trachea in good position Breast: Yes: Breasts Symetrical Cardiology: Yes: Regular Rhythm, S1, S2 Abdominal: Yes: Non Tender, Soft Genitourinary: Yes: Within Normal Limits Back: Yes: Normal Inspection Musculoskeletal: Yes: full range of Motion, Gait Steady, Back pain Extremities: Yes: Normal Range of Motion, Non-Tender, Tremors, Other (IV OPIATE LOPEZ ON RIGHT INNER ELBOW) Neurological: Yes: Motor Strength 5/5, Normal Response, Depressed Affect Integumentary: Yes: Warm, [place] Lymphatic: Yes: Within Normal Limits - Diagnostic (1) Alcohol dependence with uncomplicated withdrawal Current Visit: Yes Status: Acute (2) Nicotine dependence Current Visit: Yes Status: Acute Qualifiers: Nicotine product type: cigarettes Substance use status: in withdrawal Qualified Code(s): F17.213 - Nicotine dependence, cigarettes, with withdrawal (3) Opioid dependence with withdrawal Current Visit: Yes Status: Acute (4) Uncomplicated sedative, hypnotic or anxiolytic withdrawal Current Visit: Yes Status: Acute (5) Chronic low back pain Current Visit: Yes Status: Chronic Qualifiers: Back pain laterality: unspecified Sciatica presence: without sciatica Qualified Code(s): M54.5 - Low back pain; G89.29 - Other chronic pain (6) Hepatitis C Current Visit: Yes Status: Chronic Qualifiers: Viral hepatitis chronicity: chronic Hepatic coma status: without hepatic coma Qualified Code(s): B18.2 - Chronic viral hepatitis C Comment: SCHEDULE TO TREAT (7) Weight loss Current Visit: Yes Status: Acute Cleared for Admission S - Detox or Rehab [facility] Level of Care: Medically Managed Detox Regimen/Protocol: Methadone/Librium [facility] Breath Alcohol Content Breath Alcohol Content: 0.020 Urine Drug Screen - Results Drug Screen Negative: No Urine Drug Screen Results: OPI-Opiates, BZO-Benzodiazepines
[2017-02-04] MEDS ORDERED: LOPERAMIDE HCL 2 MG CAPSULE PO PRN (18:51)
[2017-02-04] MEDS ORDERED: IBUPROFEN 400 MG TABLET (FP) PO PRN (18:51)
[2017-02-04] MEDS ORDERED: MAG HYDROX/AL HYDROX/SIMETH 30 ML UNIT-DOSE CUP PO PRN (18:51)
[2017-02-04] MEDS ORDERED: guaiFENesin/D-METHORPHAN HB 10 ML UNIT-DOSE CUPS PO PRN (18:51)
[2017-02-04] MEDS ORDERED: MENTHOL/PHENOL 1 EACH UD MM PRN (18:51)
[2017-02-04] MEDS ORDERED: P-EPHED 60MG/TRIPROLIDI 2.5MG TABLET PO PRN (18:51)
[2017-02-04] MEDS ORDERED: MAGNESIUM CITRATE 300 ML BOTTLE PO PRN (18:51)
[2017-02-04] MEDS ORDERED: diphenhydrAMINE HCL 50 MG CAPSULE PO PRN (18:51)
[2017-02-04] MEDS ORDERED: ACETAMINOPHEN 325 MG TABLET (FP) PO PRN (18:51)
[2017-02-04] MEDS ORDERED: NICOTINE POLACRILEX 4 MG GUM BC PRN (18:51)
[2017-02-04] MEDS ORDERED: METHADONE HCL 10 MG TABLET (FOR DETOX USE ONLY) PO ONE ×2 (18:51→23:00)
[2017-02-04] MEDS ORDERED: MAGNESIUM HYDROX 2400MG/30ML ORAL SUSPENSION 30 ML CUP PO PRN (18:51)
[2017-02-04] MEDS: chlordiazePOXIDE HCL 25 MG CAPSULE PO PRN (19:35)
[2017-02-04] MEDS: CYCLOBENZAPRINE HCL 10 MG TABLET (FP) PO PRN (19:37)
[2017-02-04 22:46] LABS: URINE APPEARANCE CLEAR; URINE BILIRUBIN NEGATIVE (NEGATIVE); URINE BLOOD NEGATIVE (NEGATIVE); URINE COLOR LTYELLOW; URINE GLUCOSE (UA) NEGATIVE (NEGATIVE); URINE KETONE NEGATIVE (NEGATIVE); URINE LEUK ESTERASE NEGATIVE (NEGATIVE); URINE NITRITE NEGATIVE (NEGATIVE); URINE PROTEIN NEGATIVE (NEGATIVE); URINE UROBILINOGEN NEGATIVE E.U./dl (0.2-1.0)
[2017-02-04] MEDS: chlordiazePOXIDE HCL 25 MG CAPSULE PO SCH (22:53)
[2017-02-04] MEDS: THIAMINE HCL 100 MG TABLET (FP) PO SCH (22:54)
[2017-02-05] MEDS: chlordiazePOXIDE HCL 25 MG CAPSULE PO SCH ×4 (06:09→22:28)
[2017-02-05] MEDS: CYCLOBENZAPRINE HCL 10 MG TABLET (FP) PO PRN ×3 (06:11→22:30)
[2017-02-05] MEDS ORDERED: METHADONE HCL 10 MG TABLET (FOR DETOX USE ONLY) PO SCH (10:00)
[2017-02-05 10:38] LABS: MCH 28.7 pg (25.7-33.7); MCHC 33.1 g/dl (32.0-35.9); MEAN CELL VOLUME 86.5 fl (80-96); MEAN PLT VOLUME 9.3 fl (7.5-11.1); PLATELET COUNT 196 K/MM3 (134-434); RDW 14.2 % (11.9-15.9); WHITE BLOOD COUNT 5.6 K/mm3 (4.0-10.0)
[2017-02-05] MEDS: PRENATAL VITAMINS W/ FOLIC ACID TABLET (FP) PO SCH (10:45)
[2017-02-05] MEDS: NICOTINE 21 MG/24 HOURS TOPICAL PATCH TD SCH (10:47)
[2017-02-05 10:48] LABS: ALBUMIN 3.3 g/dl (3.4-5.0); ANION GAP 7 (8-16); CO2 28 mmol/L (21-32); SGOT/AST 38 U/L (15-37); SGPT/ALT 51 U/L (12-78)
[2017-02-05 10:52] LABS: ALK PHOS 63 U/L (45-117); BILIRUBIN,TOTAL 0.5 mg/dL (0.2-1.0); CREATININE 0.6 mg/dL (0.7-1.3); GLUCOSE,RANDOM 93 mg/dL (74-106); TOT PROT 6.9 g/dl (6.4-8.2)
--- NOTE | 2017-02-05 11:04 | PN ---
S CIWA - CIWA Score Nausea/Vomitin Muscle Tremors: 3 Anxiety: 3 Agitation: 2 Paroxysmal Sweats: 1-Minimal Palms Moist Orientation: 0-Oriented Tacttile Disturbances: 1-Very Mild Itch/Numbness Auditory Disturbances: 1-Very Mild Visual Disturbances: 1-Very Mild Sensitivity Headache: 2-Mild CIWA-Ar Total Score: 17 BHS COWS - Scale Resting Pulse: 0= [place] 80 or Below Sweatin= Chills/Flushing Restless Observation: 3= Extraneous Movement Pupil Size: 1= Pupils >than Normal Bone or Joint Aches: 2= Severe Diffuse Aches Runny Nose/ Eye Tearin= Runny Nose/Eyes GI Upset > 30mins: 2= Nausea/Diarrhea Tremor Observation of Outstretched Hands: 2= Slight Tremor Visible Yawning Observation: 1= 1-2x During Session Anxiety or Irritability: 2=Irritable/Anxious Goose Flesh Skin: 0=Smooth Skin COWS Score: 16 S Progress Note (SOAP) Subjective: ALERT,IRRITABLE,ANXIOUS,INTERRUPTED SLEEP,TREMOR,PAIN IN THE BODY AND BACK Objective: 02/05/17 11:02 Vital Signs Temperature 97.7 F 02/05/17 06:00 Pulse Rate 64 02/05/17 06:00 Respiratory Rate 18 02/05/17 06:00 Blood Pressure 117/72 02/05/17 06:00 O2 Sat by Pulse Oximetry (%) 02/05/17 11:03 EKG NSR,NORMAL ECG Laboratory Last Values WBC 5.6 K/mm3 (4.0-10.0) 02/05/17 08:00 RBC 4.46 M/mm3 (4.00-5.60) 02/05/17 08:00 Hgb 12.8 GM/dL (11.7-16.9) 02/05/17 08:00 Hct 38.6 % (35.4-49) 02/05/17 08:00 MCV 86.5 fl (80-96) 02/05/17 08:00 MCHC 33.1 g/dl (32.0-35.9) 02/05/17 08:00 RDW 14.2 % (11.9-15.9) 02/05/17 08:00 Plt Count 196 K/MM3 (134-434) 02/05/17 08:00 MPV 9.3 fl (7.5-11.1) 02/05/17 08:00 Sodium 141 mmol/L (136-145) 02/05/17 08:00 Potassium 3.7 mmol/L (3.5-5.1) 02/05/17 08:00 Chloride 106 mmol/L (98-107) 02/05/17 08:00 Carbon Dioxide 28 mmol/L (21-32) 02/05/17 08:00 Anion Gap 7 (8-16) L 02/05/17 08:00 BUN 13 mg/dL (7-18) D 02/05/17 08:00 Creatinine 0.6 mg/dL (0.7-1.3) L D 02/05/17 08:00 Creat Clearance w eGFR > 60 (>60) 02/05/17 08:00 Random Glucose 93 mg/dL (74-106) 02/05/17 08:00 Calcium 9.0 mg/dL (8.5-10.1) 02/05/17 08:00 Total Bilirubin 0.5 mg/dL (0.2-1.0) D 02/05/17 08:00 AST 38 U/L (15-37) H D 02/05/17 08:00 ALT 51 U/L (12-78) 02/05/17 08:00 Alkaline Phosphatase 63 U/L (45-117) 02/05/17 08:00 Total Protein 6.9 g/dl (6.4-8.2) 02/05/17 08:00 Albumin 3.3 g/dl (3.4-5.0) L 02/05/17 08:00 Urine Color Ltyellow 02/04/17 21:07 Urine Appearance Clear 02/04/17 21:07 Urine pH 7.0 (5.0-8.0) 02/04/17 21:07 Ur Specific [place] 1.017 (1.001-1.035) 02/04/17 21:07 Urine Protein Negative (NEGATIVE) 02/04/17 21:07 Urine Glucose (UA) Negative (NEGATIVE) 02/04/17 21:07 Urine Ketones Negative (NEGATIVE) 02/04/17 21:07 Urine Blood Negative (NEGATIVE) 02/04/17 21:07 Urine Nitrite Negative (NEGATIVE) 02/04/17 21:07 Urine Bilirubin Negative (NEGATIVE) 02/04/17 21:07 Urine Urobilinogen Negative E.U./dl (0.2-1.0) 02/04/17 21:07 Ur Leukocyte Esterase Negative (NEGATIVE) 02/04/17 21:07 Assessment: 02/05/17 11:03 WITHDRAWAL SYMPTOM Plan: CONTINUE DETOX
--- NOTE | 2017-02-05 13:45 | CONSULT ---
[facility] Psychiatric Consult - Data Date of interview: 02/05/17 Admission source: [facility] Identifying data: Another admisssion to [facility] for this 46 y/o male seeking detox treatment on for alcohol,heroin and benzodiazepine dependence.Patient is ,a father of two,currently undomiciled,unemployed and supported on welfare. Substance Abuse History: - Smoking Cessation. Smoking history: Current every day smoker. Have you smoked in the past 12 months: Yes. Aproximately how many cigarettes per day: 20. Cigars Per Day: 0. Hx Chewing Tobacco Use: No. Initiated information on smoking cessation: Yes. 'Breaking Loose' booklet given : 02/04/17. - Substance & Tx. History. Hx Alcohol Use: Yes. Hx Substance Use : Yes. Substance Use Type: Alcohol, Opiates, Tranquilizers. Hx Substance Use Treatment: Yes. - Substances Abused. Alcohol. Route: Oral. Frequency: Daily. Amount used: LIQUOR- 2 PINTS. Age of first use: 17. Date of Last Use: 02/04/17. Alprazolam (Xanax). Route: Oral. Frequency: Daily. Amount used : 2 mg. Age of first use: 40. Date of Last Use: 02/04/17. Heroin. Route: Injection. Frequency: Daily. Amount used: 20 bags. Age of first use: 24. Date of Last Use: 02/04/17. Confirmed by patient. Medical History: Hepatitis C and lower back pain. Psychiatric History: No reported history of psychiatric hospitalizations.No OPD care.Patient denies being on psychotropic medications.Mr Matthews denies history of suicide attempts. Physical/Sexual Abuse/Trauma History: Patient denies. Additional Comment: Urine Drug Screen Results: OPI-Opiates, BZO- Benzodiazepines.Noted. Mental Status Exam - Mental Status Exam Alert and Oriented to: Time, Place, Person Cognitive Function: Good Patient Appearance: Well Groomed Mood: Hopeful, Euthymic Affect: Appropriate, Normal Range Patient Behavior: Fatigued, Appropriate, Cooperative Speech Pattern: Clear, Appropriate Voice Loudness: Normal Thought Process: Goal Oriented Thought Disorder: Not Present Hallucinations: Denies Suicidal Ideation: Denies Homicidal Ideation: Denies Insight/Judgement: Poor Sleep: Poorly, Difficulty falling asleep Appetite: Good Muscle strength/Tone: Normal Gait/Station: Normal Psychiatric Findings - Problem List ([place] 1, 2,3) (1) Alcohol dependence with uncomplicated withdrawal Current Visit: Yes Status: Acute (2) Opioid dependence with withdrawal Current Visit: Yes Status: Acute (3) Uncomplicated sedative, hypnotic or anxiolytic withdrawal Current Visit: Yes Status: Acute (4) Nicotine dependence Current Visit: Yes Status: Acute Qualifiers: Nicotine product type: cigarettes Substance use status: in withdrawal Qualified Code(s): F17.213 - Nicotine dependence, cigarettes, with withdrawal (5) Chronic low back pain Current Visit: Yes Status: Chronic Qualifiers: Back pain laterality: unspecified Sciatica presence: without sciatica Qualified Code(s): M54.5 - Low back pain; G89.29 - Other chronic pain (6) Hepatitis C Current Visit: Yes Status: Chronic Qualifiers: Viral hepatitis chronicity: chronic Hepatic coma status: without hepatic coma Qualified Code(s): B18.2 - Chronic viral hepatitis C Comment: SCHEDULE TO TREAT (7) Insomnia Current Visit: Yes Status: Acute - Initial Treatment Plan Initial Treatment Plan: Psychoeducation.Detoxification.Zolpidem 10 mg po hs prn.Patient is made aware of the risk of parasomnias.He agrees with this careplan.Observation.
[2017-02-05 13:59] LABS: HIV 1 & 2 AB NEGATIVE; HIV 1 AGp24 NEGATIVE
[2017-02-05] MEDS: chlordiazePOXIDE HCL 25 MG CAPSULE PO PRN (14:13)
--- NOTE | 2017-02-05 18:29 | EKG ---
Test Reason : Blood Pressure : / mmHG Vent. Rate : 079 BPM Atrial Rate : 079 BPM P-R Int : 146 ms QRS Dur : 094 ms QT Int : 372 ms P-R-T Axes : 054 081 039 degrees QTc Int : 426 ms NORMAL SINUS RHYTHM NORMAL ECG WHEN COMPARED WITH ECG OF 04-JAN-2017 20:03, NO SIGNIFICANT CHANGE WAS FOUND Confirmed by DOMINGO AMBROCIO MD ([id number]) on 02/05/2017 6:28:45 PM Referred By: Confirmed By:DOMINGO AMBROCIO MD
[2017-02-05] MEDS: ZOLPIDEM TARTRATE 10 MG TABLET (PARK CARE ONLY) PO PRN (22:28)
[2017-02-05] MEDS: THIAMINE HCL 100 MG TABLET (FP) PO SCH (22:28)
[2017-02-06] MEDS: chlordiazePOXIDE HCL 25 MG CAPSULE PO SCH ×3 (05:49→16:56)
[2017-02-06] MEDS: CYCLOBENZAPRINE HCL 10 MG TABLET (FP) PO PRN ×3 (05:50→22:37)
[2017-02-06] MEDS: NICOTINE 21 MG/24 HOURS TOPICAL PATCH TD SCH (10:40)
[2017-02-06] MEDS: METHADONE HCL 5 MG TABLET (FOR DETOX USE ONLY) PO SCH (10:40)
[2017-02-06] MEDS: PRENATAL VITAMINS W/ FOLIC ACID TABLET (FP) PO SCH (10:40)
[2017-02-06] MEDS ORDERED: COLLOIDAL OATMEAL 1 BAR EACH TP PRN (11:05)
[2017-02-06] MEDS: chlordiazePOXIDE HCL 25 MG CAPSULE PO PRN (12:05)
[2017-02-06] MEDS ORDERED: HYDROCORTISONE 0.5% TOPICAL CREAM 30 GM TUBE TP SCH (12:45)
--- NOTE | 2017-02-06 15:11 | PN ---
S CIWA - CIWA Score Nausea/Vomitin Muscle Tremors: 4-Moderate,w/Arms Extend Anxiety: 4-Mod. Anxious/Guarded Agitation: 4-Moderately Restless Paroxysmal Sweats: No Perspiration Orientation: 0-Oriented Tacttile Disturbances: 1-Very Mild Itch/Numbness Auditory Disturbances: 0-None Visual Disturbances: 0-None Headache: 1-Very Mild CIWA-Ar Total Score: 16 BHS COWS - Scale Resting Pulse: 0= [place] 80 or Below Sweatin= Chills/Flushing Restless Observation: 3= Extraneous Movement Pupil Size: 0= Normal to Room Light Bone or Joint Aches: 2= Severe Diffuse Aches Runny Nose/ Eye Tearin= Runny Nose/Eyes GI Upset > 30mins: 3= Vomiting/Diarrhea Tremor Observation of Outstretched Hands: 2= Slight Tremor Visible Yawning Observation: 0= None Anxiety or Irritability: 2=Irritable/Anxious Goose Flesh Skin: 0=Smooth Skin COWS Score: 15 S Progress Note (SOAP) Subjective: Tremor, rhinorrhea, sweating, diarrhea, back pain, interrupted sleep; c/o itchy rash to back and abdomen from using soap Objective: 02/06/17 15:07 Last Vital Signs Temp Pulse Resp BP Pulse Ox 99.1 F 94 H 18 130/77 02/06/17 13:55 02/06/17 13:55 02/06/17 13:55 02/06/17 13:55 PE: Skin: mildly erythemic macular/papular rash to right lower back and right lower of abdomen Laboratory Tests 02/04/17 02/05/17 02/05/17 21:07 08:00 08:00 WBC 5.6 RBC 4.46 Hgb 12.8 Hct 38.6 MCV 86.5 MCHC 33.1 RDW 14.2 Plt Count 196 MPV 9.3 Sodium Potassium Chloride Carbon Dioxide Anion Gap BUN Creatinine Creat Clearance w eGFR Random Glucose Calcium Total Bilirubin AST ALT Alkaline Phosphatase Total Protein Albumin Urine Color Ltyellow Urine Appearance Clear Urine pH 7.0 Ur Specific [place] 1.017 Urine Protein Negative Urine Glucose (UA) Negative Urine Ketones Negative Urine Blood Negative Urine Nitrite Negative Urine Bilirubin Negative Urine Urobilinogen Negative Ur Leukocyte Esterase Negative RPR Titer HIV 1&2 Antibody Screen Negative HIV P24 Antigen Negative 02/05/17 02/05/17 08:00 08:00 WBC RBC Hgb Hct MCV MCHC RDW Plt Count MPV Sodium 141 Potassium 3.7 Chloride 106 Carbon Dioxide 28 Anion Gap 7 L BUN 13 D Creatinine 0.6 L D Creat Clearance w eGFR > 60 Random Glucose 93 Calcium 9.0 Total Bilirubin 0.5 D AST 38 H D ALT 51 Alkaline Phosphatase 63 Total Protein 6.9 Albumin 3.3 L Urine Color Urine Appearance Urine pH Ur Specific [place] Urine Protein Urine Glucose (UA) Urine Ketones Urine Blood Urine Nitrite Urine Bilirubin Urine Urobilinogen Ur Leukocyte Esterase RPR Titer Nonreactive HIV 1&2 Antibody Screen HIV P24 Antigen Labs noted Noted with rash to back and abdomen 02/06/17 15:11 Assessment: 02/06/17 15:08 Withdrawal symptoms Noted with contact dermatitis Plan: Continue detox Contact dermatitis: hydrocortisone cream 1% bid x 7 days, aveeno soap daily prn
[2017-02-06] MEDS: chlordiazePOXIDE 5 MG CAPSULE PO SCH (22:35)
[2017-02-06] MEDS: THIAMINE HCL 100 MG TABLET (FP) PO SCH (22:35)
[2017-02-06] MEDS: ZOLPIDEM TARTRATE 10 MG TABLET (PARK CARE ONLY) PO PRN (22:35)
[2017-02-06] MEDS: HYDROCORTISONE 1% TOPICAL CREAM 30 GM TUBE TP SCH (23:10)
[2017-02-07] MEDS: chlordiazePOXIDE 5 MG CAPSULE PO SCH ×3 (05:36→17:29)
[2017-02-07] MEDS: CYCLOBENZAPRINE HCL 10 MG TABLET (FP) PO PRN ×2 (05:38→22:42)
--- NOTE | 2017-02-07 10:41 | PN ---
BHS Progress Note (SOAP) Subjective: sweats interrupted sleep agitation Objective: 02/07/17 10:40 Vital Signs Temperature 96.6 F L 02/07/17 10:00 Pulse Rate 75 02/07/17 10:00 Respiratory Rate 18 02/07/17 10:00 Blood Pressure 113/71 02/07/17 10:00 O2 Sat by Pulse Oximetry (%) awake/alert ambulating no acute distress Assessment: 02/07/17 10:41 withdrawal sx Plan: continue detox increase fluids
[2017-02-07] MEDS: METHADONE HCL 5 MG TABLET (FOR DETOX USE ONLY) PO SCH (11:02)
[2017-02-07] MEDS: PRENATAL VITAMINS W/ FOLIC ACID TABLET (FP) PO SCH (11:02)
[2017-02-07] MEDS: NICOTINE 21 MG/24 HOURS TOPICAL PATCH TD SCH (11:04)
[2017-02-07] MEDS: HYDROCORTISONE 1% TOPICAL CREAM 30 GM TUBE TP SCH ×2 (11:05→22:46)
[2017-02-07] MEDS: chlordiazePOXIDE HCL 25 MG CAPSULE PO PRN (14:07)
[2017-02-07] MEDS: chlordiazePOXIDE HCL 10 MG CAPSULE PO SCH (22:40)
[2017-02-07] MEDS: THIAMINE HCL 100 MG TABLET (FP) PO SCH (22:40)
[2017-02-07] MEDS: ZOLPIDEM TARTRATE 10 MG TABLET (PARK CARE ONLY) PO PRN (22:43)
[2017-02-08] MEDS: chlordiazePOXIDE HCL 10 MG CAPSULE PO SCH ×3 (05:54→17:37)
[2017-02-08] MEDS: CYCLOBENZAPRINE HCL 10 MG TABLET (FP) PO PRN ×3 (05:55→22:32)
[2017-02-08] MEDS ORDERED: chlordiazePOXIDE 5 MG CAPSULE ONE ×2 (09:30→09:31)
[2017-02-08] MEDS ORDERED: METHADONE HCL 10 MG TABLET (FOR DETOX USE ONLY) PO SCH (10:00)
--- NOTE | 2017-02-08 10:26 | PN ---
S Progress Note (SOAP) Subjective: ALERT,IRRITABLE,ANXIOUS,INTERRUPTED SLEEP Objective: 02/08/17 10:25 Vital Signs Temperature 98.2 F 02/08/17 09:55 Pulse Rate 81 02/08/17 09:55 Respiratory Rate 16 02/08/17 09:55 Blood Pressure 125/66 02/08/17 09:55 O2 Sat by Pulse Oximetry (%) Assessment: 02/08/17 10:26 WITHDRAWAL SYMPTOM Plan: CONTINUE DETOX,DISCHARGE IN AM
[2017-02-08] MEDS: PRENATAL VITAMINS W/ FOLIC ACID TABLET (FP) PO SCH (11:16)
[2017-02-08] MEDS: HYDROCORTISONE 1% TOPICAL CREAM 30 GM TUBE TP SCH ×2 (11:17→22:38)
[2017-02-08] MEDS: NICOTINE 21 MG/24 HOURS TOPICAL PATCH TD SCH (11:18)
[2017-02-08] MEDS: THIAMINE HCL 100 MG TABLET (FP) PO SCH (22:29)
[2017-02-09] MEDS ORDERED: METHADONE HCL 5 MG TABLET (FOR DETOX USE ONLY) PO SCH (06:00)
[2017-02-09] MEDS: CYCLOBENZAPRINE HCL 10 MG TABLET (FP) PO PRN (06:38)
[2017-02-09 06:42] VITALS: BP 109/61; PULSE 70; TEMP 97.5
--- NOTE | 2017-02-09 08:39 | DS ---
[facility] Detox Discharge Summary Admission Date: 02/04/17 Discharge Date: 02/09/17 - History Present History: Alcohol Dependence, Opioid Dependence, Sedative Dependence - Physical Exam Results Vital Signs: Vital Signs Temperature 97.5 F L 02/09/17 06:41 Pulse Rate 70 02/09/17 06:41 Respiratory Rate 18 02/09/17 06:41 Blood Pressure 109/61 02/09/17 06:41 O2 Sat by Pulse Oximetry (%) - Treatment Hospital Course: Detox Protocol Followed, Detoxed Safely, Responded well, Discharged Condition Good, Rehab Referral Accepted - Medication Discharge Medications: Ambulatory Orders NK [No Known Home Medication] 01/04/17 - Diagnosis (1) Alcohol dependence with uncomplicated withdrawal Current Visit: Yes Status: Chronic (2) Insomnia Current Visit: Yes Status: Chronic (3) Nicotine dependence Current Visit: Yes Status: Chronic Qualifiers: Nicotine product type: cigarettes Substance use status: uncomplicated Qualified Code(s): F17.210 - Nicotine dependence, cigarettes, uncomplicated (4) Opioid dependence with withdrawal Current Visit: Yes Status: Chronic (5) Uncomplicated sedative, hypnotic or anxiolytic withdrawal Current Visit: Yes Status: Chronic (6) Weight loss Current Visit: Yes Status: Acute (7) Chronic low back pain Current Visit: Yes Status: Chronic Qualifiers: Back pain laterality: unspecified Sciatica presence: without sciatica Qualified Code(s): M54.5 - Low back pain; G89.29 - Other chronic pain (8) Hepatitis C Current Visit: Yes Status: Chronic Qualifiers: Viral hepatitis chronicity: chronic Hepatic coma status: without hepatic coma Qualified Code(s): B18.2 - Chronic viral hepatitis C (9) Atypical rash Current Visit: No Status: Acute (10) Bereavement Current Visit: No Status: Resolved (11) Blackout Current Visit: No Status: Acute (12) Cellulitis Current Visit: No Status: Acute Qualifiers: Site of cellulitis of extremity: lower extremity Laterality: right (13) Opioid-induced sleep disorder Current Visit: No Status: Acute (14) Recent weight loss Current Visit: No Status: Acute (15) Substance-induced anxiety disorder Current Visit: No Status: Acute (16) Substance-induced sleep disorder Current Visit: No Status: Acute (17) Anxiety disorder Current Visit: No Status: Chronic (18) Constipation Current Visit: No Status: Chronic Qualifiers: Constipation type: slow transit constipation Qualified Code(s): K59.01 - Slow transit constipation (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
== END 2017-02-09 09:55 | disposition home or self-care (01) | DRG 773 ==
LOC: YASAS 12:52 → Y6N 18:21
PROVIDERS: ADMIT Internal Medicine; ATTEND Internal Medicine
PROC: HZ2ZZZZ Detoxification Services for Substance Abuse Treatment (ICD-10-PCS; principal; 2017-02-04)
DX: F11.23 Opioid dependence with withdrawal (principal); F13.230 Sedative, hypnotic or anxiolytic dependence with withdrawal, uncomplicated; F10.230 Alcohol dependence with withdrawal, uncomplicated; F17.210 Nicotine dependence, cigarettes, uncomplicated; F19.24 Other psychoactive substance dependence with psychoactive substance-induced mood disorder; F19.280 Other psychoactive substance dependence with psychoactive substance-induced anxiety disorder; F19.282 Other psychoactive substance dependence with psychoactive substance-induced sleep disorder; F41.9 Anxiety disorder, unspecified; Z63.4 Disappearance and death of family member; B18.2 Chronic viral hepatitis C; G47.00 Insomnia, unspecified; M54.5 Low back pain; G89.29 Other chronic pain; R21 Rash and other nonspecific skin eruption; L03.115 Cellulitis of right lower limb; K59.01 Slow transit constipation; L85.3 Xerosis cutis; L25.9 Unspecified contact dermatitis, unspecified cause; Z87.898 Personal history of other specified conditions
CPT/HCPCS: 36415; 80053; 81003; 85027; 86593; 87389; 93005; 93010

== ENCOUNTER 2017-03-05 12:40 | Inpatient (IN) | payer OTHER ==
[2017-03-05 13:27] VITALS: BMI 22.1
--- NOTE | 2017-03-05 14:28 | HP ---
COWS - Scale Resting Pulse: 0= [place] 80 or Below Sweatin= Chills/Flushing Restless Observation: 1= Difficult to Sit Still Pupil Size: 0= Normal to Room Light Bone or Joint Aches: 1= Mild Discomfort Runny Nose/ Eye Tearin= Nasal Congestion GI Upset > 30mins: 1= Stomach Cramp Tremor Observation: 1= Tremor [place], Not Seen Yawning Observation: 1= 1-2x During Session Anxiety or Irritability: 1=Feels Anxious/Irritable Goose Flesh Skin: 0=Smooth Skin COWS Score: 8 CIWA Score - CIWA Score Nausea/Vomitin-Mild Nausea/No Vomiting Muscle Tremors: 4-Moderate,w/Arms Extend Anxiety: 4-Mod. Anxious/Guarded Agitation: 1-Slight > Activity Paroxysmal Sweats: 1-Minimal Palms Moist Orientation: 0-Oriented Tacttile Disturbances: 1-Very Mild Itch/Numbness Auditory Disturbances: 1-Very Mild Visual Disturbances: 1-Very Mild Sensitivity Headache: 1-Very Mild CIWA-Ar Total Score: 15 Admission ROS S - HPI Chief Complaint: I can't stop on my own - I want nursing home after this - no one in my family will talk to me. Allergies/Adverse Reactions: Allergies Allergy/AdvReac Type Severity Reaction Status Date / Time Fish Containing Products Allergy Intermediate Rash Verified 02/04/17 18:07 No Known Drug Allergies Allergy Verified 02/04/17 18:07 History of Present Illness: 46 yo gentleman here for detox from heroin and alcohol. Exam Limitations: Clinical Condition - Ebola screening Have you traveled outside of the country in the last 21 days: No Have you had contact with anyone from an Ebola affected area: No Have you been sick,other than usual withdrawal symptoms: No Do you have a fever: No - Review of Systems Constitutional: Loss of Appetite, Malaise, Changes in sleep EENT: reports: Blurred Vision, Nose Congestion Respiratory: reports: No Symptoms reported Cardiac: reports: No Symptoms Reported GI: reports: Nausea, Poor Appetite : reports: No Symptoms Reported Musculoskeletal: reports: Back Pain, Muscle Pain Integumentary: reports: Dryness Neuro: reports: Headache Endocrine: reports: No Symptoms Reported Hematology: reports: No Symptoms Reported Psychiatric: reports: Judgement Intact, Mood/Affect Appropiate, Orientated x3, Anxious Other Systems: Reviewed and Negative Patient History - Patient Medical History Hx Anemia: No Hx Asthma: No Hx Chronic Obstructive Pulmonary Disease (COPD): No Hx Cancer: No Hx Cardiac Disorders: No Hx Congestive Heart Failure: No Hx Hypertension: No Hx Hypercholesterolemia: No Hx Pacemaker: No HX Cerebrovascular Accident: No Hx Seizures: No Hx Dementia: No Hx Diabetes: No Hx Gastrointestinal Disorders: No Hx Liver Disease: Yes (untreated hep c) Hx Genitourinary Disorders: No Hx Sexually Transmitted Disorders: No Hx Renal Disease (ESRD): No Hx Thyroid Disease: No Hx Human Immunodeficiency Virus (HIV): No Hx Hepatitis C: Yes (Not treated) Hx Depression: Yes (insomnia) Hx Suicide Attempt: No Hx Bipolar Disorder: No Hx Schizophrenia: No - Patient Surgical History Past Surgical History: No Hx Neurologic Surgery: No Hx Cataract Extraction: No Hx Cardiac Surgery: No Hx Lung Surgery: No Hx Breast Surgery: No Hx Breast Biopsy: No Hx Abdominal Surgery: No Hx Appendectomy: No Hx Cholecystectomy: No Hx Genitourinary Surgery: No Hx Section: No Hx Orthopedic Surgery: No Anesthesia Reaction: No - PPD History Previous Implant?: Yes Documented Results: Negative w/proof Date: 06/23/16 Results: 0mm PPD to be Administered?: No - Reproductive History Patient is a Female of Child Bearing Age (11 -55 yrs old): No - Smoking Cessation Smoking history: Current every day smoker Have you smoked in the past 12 months: Yes Aproximately how many cigarettes per day: 20 Cigars Per Day: 0 Hx Chewing Tobacco Use: No Initiated information on smoking cessation: Yes 'Breaking Loose' booklet given: 03/05/17 (give on floor) - Substance & Tx. History Hx Alcohol Use: Yes Hx Substance Use: Yes Substance Use Type: Alcohol, Heroin Hx Substance Use Treatment: Yes (detox, rehab, methadone, suboxone) - Substances Abused Alcohol Route: Oral Frequency: Daily Amount used: 2 pints Age of first use: 17 Date of Last Use: 03/05/17 Heroin Route: Injection Frequency: Daily Amount used: 25 bags Age of first use: 24 Date of Last Use: 03/05/17 Family Disease History - Family Disease History Family Disease History: Diabetes: Mother (, ), Sister, Heart Disease: Father (,alcohol), Mother, Other: Father, Mother, Brother (healthy), Sister Admission Physical Exam BHS - Vital Signs Vital Signs: Vital Signs - 24 hr 03/05/17 13:24 Temperature 98.3 F Pulse Rate 69 Respiratory 18 Rate Blood Pressure 134/77 - Physical General Appearance: Yes: No Apparent Distress, Appropriately Dressed, Mild Distress, Moderate Distress HEENTM: Yes: Hearing grossly Normal, Normocephalic, Normal Voice, Pharynx Normal Respiratory: Yes: Normal Breath Sounds, No Respiratory Distress Neck: Yes: No masses,lesions,Nodules, Supple Breast: Yes: Breast Exam Deferred Cardiology: Yes: Regular Rhythm, Regular Rate Abdominal: Yes: Soft Genitourinary: Yes: Within Normal Limits Back: Yes: Decreased Range of Motion Musculoskeletal: Yes: full range of Motion, Gait Steady Extremities: Yes: Normal Inspection Neurological: Yes: Fully Oriented, Alert, Motor Strength 5/5, Normal Mood/Affect , Normal Response Integumentary: Yes: Normal Color, Warm Lymphatic: Yes: Within Normal Limits - Diagnostic (1) Alcohol dependence with uncomplicated withdrawal Current Visit: Yes Status: Chronic (2) Chronic low back pain Current Visit: Yes Status: Chronic Qualifiers: Back pain laterality: unspecified Sciatica presence: without sciatica Qualified Code(s): M54.5 - Low back pain; G89.29 - Other chronic pain (3) Hepatitis C Current Visit: Yes Status: Chronic Qualifiers: Viral hepatitis chronicity: chronic Hepatic coma status: without hepatic coma Qualified Code(s): B18.2 - Chronic viral hepatitis C Comment: SCHEDULE TO TREAT (4) Nicotine dependence Current Visit: Yes Status: Chronic Qualifiers: Nicotine product type: cigarettes Substance use status: uncomplicated Qualified Code(s): F17.210 - Nicotine dependence, cigarettes, uncomplicated (5) Opioid dependence with withdrawal Current Visit: Yes Status: Chronic Cleared for Admission [facility] - Detox or Rehab [facility] Level of Care: Medically Managed Detox Regimen/Protocol: Methadone/Librium [facility] Breath Alcohol Content Breath Alcohol Content: 0.050 Urine Drug Screen - Results Drug Screen Negative: No Urine Drug Screen Results: OPI-Opiates
[2017-03-05] MEDS ORDERED: LOPERAMIDE HCL 2 MG CAPSULE PO PRN (14:46)
[2017-03-05] MEDS ORDERED: guaiFENesin/D-METHORPHAN HB 10 ML UNIT-DOSE CUPS PO PRN (14:46)
[2017-03-05] MEDS ORDERED: MAG HYDROX/AL HYDROX/SIMETH 30 ML UNIT-DOSE CUP PO PRN (14:46)
[2017-03-05] MEDS ORDERED: MAGNESIUM HYDROX 2400MG/30ML ORAL SUSPENSION 30 ML CUP PO PRN (14:46)
[2017-03-05] MEDS ORDERED: IBUPROFEN 400 MG TABLET (FP) PO PRN (14:46)
[2017-03-05] MEDS ORDERED: chlordiazePOXIDE HCL 25 MG CAPSULE PO ONE (14:46)
[2017-03-05] MEDS ORDERED: MAGNESIUM CITRATE 300 ML BOTTLE PO PRN (14:46)
[2017-03-05] MEDS ORDERED: hydrOXYzine PAMOATE 50 MG CAPSULE (FP) PO PRN (14:46)
[2017-03-05] MEDS ORDERED: METHADONE HCL 10 MG TABLET (FOR DETOX USE ONLY) PO ONE ×2 (14:46→23:00)
[2017-03-05] MEDS ORDERED: MENTHOL/PHENOL 1 EACH UD MM PRN (14:46)
[2017-03-05] MEDS ORDERED: ACETAMINOPHEN 325 MG TABLET (FP) PO PRN (14:46)
[2017-03-05] MEDS ORDERED: METHADONE HCL 10 MG TABLET (FOR DETOX USE ONLY) ONE (19:05)
[2017-03-05] MEDS: chlordiazePOXIDE HCL 25 MG CAPSULE PO SCH ×2 (19:07→22:12)
[2017-03-05] MEDS: NICOTINE 21 MG/24 HOURS TOPICAL PATCH TD SCH (19:11)
[2017-03-05] MEDS: THIAMINE HCL 100 MG TABLET (FP) PO SCH (22:11)
[2017-03-05] MEDS: CYCLOBENZAPRINE HCL 10 MG TABLET (FP) PO PRN (22:12)
[2017-03-05] MEDS: diphenhydrAMINE HCL 50 MG CAPSULE PO PRN (22:14)
[2017-03-06] MEDS: chlordiazePOXIDE HCL 25 MG CAPSULE PO SCH ×4 (06:03→22:17)
[2017-03-06] MEDS: CYCLOBENZAPRINE HCL 10 MG TABLET (FP) PO PRN ×3 (06:05→22:17)
[2017-03-06] MEDS ORDERED: METHADONE HCL 10 MG TABLET (FOR DETOX USE ONLY) PO SCH (10:00)
[2017-03-06 11:08] LABS: MCH 29.3 pg (25.7-33.7); MCHC 33.6 g/dl (32.0-35.9); MEAN CELL VOLUME 87.2 fl (80-96); MEAN PLT VOLUME 9.3 fl (7.5-11.1); PLATELET COUNT 218 K/MM3 (134-434); RDW 13.6 % (11.9-15.9); WHITE BLOOD COUNT 6.9 K/mm3 (4.0-10.0)
[2017-03-06] MEDS: NICOTINE 21 MG/24 HOURS TOPICAL PATCH TD SCH (11:09)
[2017-03-06] MEDS: PRENATAL VITAMINS W/ FOLIC ACID TABLET (FP) PO SCH (11:09)
[2017-03-06 11:11] LABS: ALBUMIN 3.4 g/dl (3.4-5.0); ALK PHOS 72 U/L (45-117); ANION GAP 8 (8-16); BILIRUBIN,TOTAL 0.4 mg/dL (0.2-1.0); CALCIUM 8.7 mg/dL (8.5-10.1); CO2 28 mmol/L (21-32); COCKROFT - GAULT 113.39; CREATININE 0.8 mg/dL (0.7-1.3); GLUCOSE,RANDOM 92 mg/dL (74-106); SGPT/ALT 41 U/L (12-78); TOT PROT 7.3 g/dl (6.4-8.2)
[2017-03-06 11:13] LABS: SGOT/AST 33 U/L (15-37)
--- NOTE | 2017-03-06 12:43 | EKG ---
Test Reason : Blood Pressure : / mmHG Vent. Rate : 065 BPM Atrial Rate : 065 BPM P-R Int : 162 ms QRS Dur : 086 ms QT Int : 388 ms P-R-T Axes : 080 085 049 degrees QTc Int : 403 ms NORMAL SINUS RHYTHM NORMAL ECG WHEN COMPARED WITH ECG OF 04-FEB-2017 18:46, NO SIGNIFICANT CHANGE WAS FOUND Confirmed by AALIYAH MARTÍNEZ MD ([id number]) on 03/06/2017 12:43:36 PM Referred By: Confirmed By:AALIYAH MARTÍNEZ MD
[2017-03-06 13:44] LABS: URINE APPEARANCE CLEAR; URINE BILIRUBIN NEGATIVE (NEGATIVE); URINE BLOOD NEGATIVE (NEGATIVE); URINE COLOR YELLOW; URINE GLUCOSE (UA) NEGATIVE (NEGATIVE); URINE KETONE NEGATIVE (NEGATIVE); URINE LEUK ESTERASE NEGATIVE (NEGATIVE); URINE NITRITE NEGATIVE (NEGATIVE); URINE PROTEIN NEGATIVE (NEGATIVE); URINE UROBILINOGEN NEGATIVE E.U./dl (0.2-1.0)
[2017-03-06] MEDS: chlordiazePOXIDE HCL 25 MG CAPSULE PO PRN (14:01)
[2017-03-06] MEDS ORDERED: COLLOIDAL OATMEAL 1 BAR EACH TP PRN (15:05)
--- NOTE | 2017-03-06 15:28 | PN ---
S CIWA - CIWA Score Nausea/Vomitin Muscle Tremors: 4-Moderate,w/Arms Extend Anxiety: 4-Mod. Anxious/Guarded Agitation: 4-Moderately Restless Paroxysmal Sweats: No Perspiration Orientation: 0-Oriented Tacttile Disturbances: 1-Very Mild Itch/Numbness Auditory Disturbances: 0-None Visual Disturbances: 0-None Headache: 2-Mild CIWA-Ar Total Score: 18 BHS COWS - Scale Resting Pulse: 1= [place] 81-100 Sweatin= Chills/Flushing Restless Observation: 3= Extraneous Movement Pupil Size: 0= Normal to Room Light Bone or Joint Aches: 2= Severe Diffuse Aches Runny Nose/ Eye Tearin= Runny Nose/Eyes GI Upset > 30mins: 1= Stomach Cramp Tremor Observation of Outstretched Hands: 2= Slight Tremor Visible Yawning Observation: 1= 1-2x During Session Anxiety or Irritability: 2=Irritable/Anxious Goose Flesh Skin: 0=Smooth Skin COWS Score: 15 S Progress Note (SOAP) Subjective: Sweating, anxious, chills, rhinorrhea, back pain Objective: 03/06/17 15:27 Last Vital Signs Temp Pulse Resp BP Pulse Ox 97.0 F L 88 18 126/76 03/06/17 13:21 03/06/17 13:21 03/06/17 13:21 03/06/17 13:21 Laboratory Tests 03/06/17 03/06/17 03/06/17 07:00 07:00 07:00 WBC 6.9 RBC 4.60 Hgb 13.5 Hct 40.1 MCV 87.2 MCHC 33.6 RDW 13.6 Plt Count 218 MPV 9.3 Sodium 142 Potassium 4.3 Chloride 106 Carbon Dioxide 28 Anion Gap 8 BUN 14 Creatinine 0.8 D Creat Clearance w eGFR > 60 Random Glucose 92 Calcium 8.7 Total Bilirubin 0.4 AST 33 ALT 41 Alkaline Phosphatase 72 Total Protein 7.3 Albumin 3.4 Urine Color Urine Appearance Urine pH Ur Specific [place] Urine Protein Urine Glucose (UA) Urine Ketones Urine Blood Urine Nitrite Urine Bilirubin Urine Urobilinogen Ur Leukocyte Esterase RPR Titer Nonreactive 03/06/17 11:10 WBC RBC Hgb Hct MCV MCHC RDW Plt Count MPV Sodium Potassium Chloride Carbon Dioxide Anion Gap BUN Creatinine Creat Clearance w eGFR Random Glucose Calcium Total Bilirubin AST ALT Alkaline Phosphatase Total Protein Albumin Urine Color Yellow Urine Appearance Clear Urine pH 7.0 Ur Specific [place] 1.023 Urine Protein Negative Urine Glucose (UA) Negative Urine Ketones Negative Urine Blood Negative Urine Nitrite Negative Urine Bilirubin Negative Urine Urobilinogen Negative Ur Leukocyte Esterase Negative RPR Titer Labs noted Assessment: 03/06/17 15:28 Withdrawal symptoms Plan: Continue detox
[2017-03-06] MEDS: THIAMINE HCL 100 MG TABLET (FP) PO SCH (22:15)
[2017-03-06] MEDS: diphenhydrAMINE HCL 50 MG CAPSULE PO PRN (22:15)
[2017-03-07] MEDS: chlordiazePOXIDE HCL 25 MG CAPSULE PO SCH ×2 (05:50→10:04)
[2017-03-07] MEDS: CYCLOBENZAPRINE HCL 10 MG TABLET (FP) PO PRN ×3 (05:52→22:07)
[2017-03-07] MEDS: PRENATAL VITAMINS W/ FOLIC ACID TABLET (FP) PO SCH (10:03)
[2017-03-07] MEDS: NICOTINE 21 MG/24 HOURS TOPICAL PATCH TD SCH (10:04)
[2017-03-07] MEDS: METHADONE HCL 5 MG TABLET (FOR DETOX USE ONLY) PO SCH (10:04)
--- NOTE | 2017-03-07 10:33 | CONSULT ---
[facility] Psychiatric Consult - Data Date of interview: 03/07/17 Admission source: [facility] Identifying data: Readmisssion to [facility] for this 46 y/o male seeking detox treatment on for alcohol and heroin dependence.Patient is ,a father of two,domiciled,unemployed and supported on welfare. Substance Abuse History: - Smoking Cessation. Smoking history: Current every day smoker. Have you smoked in the past 12 months: Yes. Aproximately how many cigarettes per day: 20. Cigars Per Day: 0. Hx Chewing Tobacco Use: No. Initiated information on smoking cessation: Yes. 'Breaking Loose' booklet given : 03/05/17 (give on floor). - Substance & Tx. History. Hx Alcohol Use: Yes. Hx Substance Use: Yes. Substance Use Type: Alcohol, Heroin. Hx Substance Use Treatment: Yes (detox, rehab, methadone, suboxone). - Substances Abused. Alcohol. Route: Oral. Frequency: Daily. Amount used: 2 pints. Age of first use: 17. Date of Last Use: 03/05/17. Heroin. Route: Injection. Frequency : Daily. Amount used: 25 bags. Age of first use: 24. Date of Last Use: . Confirmed by patient. Medical History: Hepatitis C and lower back pain. Psychiatric History: No reported history of psychiatric hospitalizations.Patient admits to past psychiatric OPD care at [facility].Diagnosed with Bipolar Disorder (self-report).Not seen by psychiatrist for more than six months.Used to be prescribed seroquel 100 mg/hs + depakote 500 mg/hs + ambien 10 mg/hs.Non adherent to medications.Mr Matthews denies history of suicide attempts. Physical/Sexual Abuse/Trauma History: Patient denies. Additional Comment: Urine Drug Screen Results: OPI-Opiates.Noted. Mental Status Exam - Mental Status Exam Alert and Oriented to: Time, Place, Person Cognitive Function: Good Patient Appearance: Well Groomed Mood: Withdrawn, Anxious, Apprehensive Affect: Mood Congruent Patient Behavior: Fatigued, Appropriate, Cooperative Speech Pattern: Clear Voice Loudness: Normal Thought Process: Goal Oriented Thought Disorder: Not Present Hallucinations: Denies Suicidal Ideation: Denies Homicidal Ideation: Denies Insight/Judgement: Poor Sleep: Poorly, Difficulty falling asleep Appetite: Good Muscle strength/Tone: Normal Gait/Station: Normal Psychiatric Findings - Problem List ([place] 1, 2,3) (1) Alcohol dependence with uncomplicated withdrawal Current Visit: Yes Status: Acute (2) Opioid dependence with withdrawal Current Visit: Yes Status: Acute (3) Nicotine dependence Current Visit: Yes Status: Acute Qualifiers: Nicotine product type: cigarettes Substance use status: uncomplicated Qualified Code(s): F17.210 - Nicotine dependence, cigarettes, uncomplicated (4) Drug-induced mood disorder Current Visit: Yes Status: Acute (5) Chronic low back pain Current Visit: Yes Status: Chronic Qualifiers: Back pain laterality: unspecified Sciatica presence: without sciatica Qualified Code(s): M54.5 - Low back pain; G89.29 - Other chronic pain (6) Hepatitis C Current Visit: Yes Status: Chronic Qualifiers: Viral hepatitis chronicity: chronic Hepatic coma status: without hepatic coma Qualified Code(s): B18.2 - Chronic viral hepatitis C Comment: SCHEDULE TO TREAT (7) Insomnia Current Visit: Yes Status: Chronic - Initial Treatment Plan Initial Treatment Plan: Psychoeducation.Detoxification.Medications : seroquel 100 mg po hs + ambien 5 mg po hs prn.Side effects/benefits of both drugs are discussed with the patient.Made aware of risk of oversedation/falls,abnormal involuntary movements,cardiovascular adverse events and parasomnias.No prior history of deleterious effects from this regimen.Patient consents to follow this careplan.Observation.
[2017-03-07] MEDS: chlordiazePOXIDE HCL 25 MG CAPSULE PO PRN (14:08)
--- NOTE | 2017-03-07 15:20 | PN ---
[facility] CIWA - CIWA Score Nausea/Vomitin-No Nausea/No Vomiting Muscle Tremors: 4-Moderate,w/Arms Extend Anxiety: 3 Agitation: 3 Paroxysmal Sweats: 3 Orientation: 0-Oriented Tacttile Disturbances: 0-None Auditory Disturbances: 0-None Visual Disturbances: 0-None Headache: 0-None Present CIWA-Ar Total Score: 13 BHS COWS - Scale Resting Pulse: 0= [place] 80 or Below Sweatin=Flushed/Facial Moisture Restless Observation: 1= Difficult to Sit Still Pupil Size: 0= Normal to Room Light Bone or Joint Aches: 2= Severe Diffuse Aches Runny Nose/ Eye Tearin= Runny Nose/Eyes GI Upset > 30mins: 2= Nausea/Diarrhea Tremor Observation of Outstretched Hands: 2= Slight Tremor Visible Yawning Observation: 1= 1-2x During Session Anxiety or Irritability: 2=Irritable/Anxious Goose Flesh Skin: 0=Smooth Skin COWS Score: 14 S Progress Note (SOAP) Subjective: Anxiety,tremors,sweating,interrupted sleep,restless,muscle aches Objective: 03/07/17 15:19 Vital Signs - 8 hr 03/07/17 03/07/17 09:40 14:01 Temperature 96.3 F L 96.8 F L Pulse Rate 65 71 Respiratory 18 18 Rate Blood Pressure 109/71 95/61 Laboratory Tests 03/06/17 03/06/17 03/06/17 07:00 07:00 07:00 WBC 6.9 RBC 4.60 Hgb 13.5 Hct 40.1 MCV 87.2 MCHC 33.6 RDW 13.6 Plt Count 218 MPV 9.3 Sodium 142 Potassium 4.3 Chloride 106 Carbon Dioxide 28 Anion Gap 8 BUN 14 Creatinine 0.8 D Creat Clearance w eGFR > 60 Random Glucose 92 Calcium 8.7 Total Bilirubin 0.4 AST 33 ALT 41 Alkaline Phosphatase 72 Total Protein 7.3 Albumin 3.4 Urine Color Urine Appearance Urine pH Ur Specific [place] Urine Protein Urine Glucose (UA) Urine Ketones Urine Blood Urine Nitrite Urine Bilirubin Urine Urobilinogen Ur Leukocyte Esterase RPR Titer Nonreactive 03/06/17 11:10 WBC RBC Hgb Hct MCV MCHC RDW Plt Count MPV Sodium Potassium Chloride Carbon Dioxide Anion Gap BUN Creatinine Creat Clearance w eGFR Random Glucose Calcium Total Bilirubin AST ALT Alkaline Phosphatase Total Protein Albumin Urine Color Yellow Urine Appearance Clear Urine pH 7.0 Ur Specific [place] 1.023 Urine Protein Negative Urine Glucose (UA) Negative Urine Ketones Negative Urine Blood Negative Urine Nitrite Negative Urine Bilirubin Negative Urine Urobilinogen Negative Ur Leukocyte Esterase Negative RPR Titer labs noted Assessment: 03/07/17 15:19 Withdrawal sx. Plan: Continue detox
[2017-03-07] MEDS: chlordiazePOXIDE 5 MG CAPSULE PO SCH ×2 (17:07→22:07)
[2017-03-07] MEDS: ZOLPIDEM TARTRATE 5 MG TABLET PO PRN (22:07)
[2017-03-07] MEDS: QUEtiapine FUMARATE 100 MG TABLET (FP) PO SCH (22:07)
[2017-03-07] MEDS: THIAMINE HCL 100 MG TABLET (FP) PO SCH (22:08)
[2017-03-07] MEDS: TOLNAFTATE 1% CREAM 15 GM TUBE TP SCH (22:08)
[2017-03-08] MEDS: chlordiazePOXIDE 5 MG CAPSULE PO SCH ×2 (06:01→10:47)
[2017-03-08] MEDS: CYCLOBENZAPRINE HCL 10 MG TABLET (FP) PO PRN ×3 (06:02→22:04)
--- NOTE | 2017-03-08 09:56 | PN ---
BHS Progress Note (SOAP) Subjective: ANXIETY,CHILLS,BACKACHE. Objective: 03/08/17 09:55 Vital Signs Temperature 97.1 F L 03/08/17 09:30 Pulse Rate 69 03/08/17 09:30 Respiratory Rate 18 03/08/17 09:30 Blood Pressure 125/74 03/08/17 09:30 O2 Sat by Pulse Oximetry (%) Assessment: 03/08/17 09:55 WITHDRAWAL SX Plan: CONTINUE DETOX
[2017-03-08] MEDS: METHADONE HCL 5 MG TABLET (FOR DETOX USE ONLY) PO SCH (10:47)
[2017-03-08] MEDS: NICOTINE 21 MG/24 HOURS TOPICAL PATCH TD SCH (10:47)
[2017-03-08] MEDS: PRENATAL VITAMINS W/ FOLIC ACID TABLET (FP) PO SCH (10:47)
[2017-03-08] MEDS: TOLNAFTATE 1% CREAM 15 GM TUBE TP SCH ×2 (10:48→22:03)
[2017-03-08] MEDS: chlordiazePOXIDE HCL 25 MG CAPSULE PO PRN (14:28)
[2017-03-08] MEDS: chlordiazePOXIDE HCL 10 MG CAPSULE PO SCH ×2 (17:11→22:04)
[2017-03-08] MEDS: THIAMINE HCL 100 MG TABLET (FP) PO SCH (22:04)
[2017-03-08] MEDS: ZOLPIDEM TARTRATE 5 MG TABLET PO PRN (22:04)
[2017-03-08] MEDS: QUEtiapine FUMARATE 100 MG TABLET (FP) PO SCH (22:04)
[2017-03-09] MEDS: chlordiazePOXIDE HCL 10 MG CAPSULE PO SCH (06:07)
[2017-03-09] MEDS: CYCLOBENZAPRINE HCL 10 MG TABLET (FP) PO PRN (06:08)
[2017-03-09 06:50] VITALS: BP 109/77; PULSE 67; TEMP 96.4
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
--- NOTE | 2017-03-09 08:31 | DS ---
[facility] Detox Discharge Summary Admission Date: 03/05/17 Discharge Date: 03/09/17 - History Present History: Alcohol Dependence, Opioid Dependence Additional Comments: PT WAS DISCHARGED EARLIER Pertinent Past History: DRY SKIN DERMATITIS WT LOSS - Physical Exam Results Vital Signs: Vital Signs Temperature 96.4 F L 03/09/17 06:49 Pulse Rate 67 03/09/17 06:49 Respiratory Rate 16 03/09/17 06:49 Blood Pressure 109/77 03/09/17 06:49 O2 Sat by Pulse Oximetry (%) Pertinent Admission Physical Exam Findings: WITHDRAWAL SX - Treatment Hospital Course: Detox Protocol Followed, Detoxed Safely, Responded well - Medication Discharge Medications: Ambulatory Orders Quetiapine Fumarate [Seroquel] 100 mg PO HS #30 tablet 03/07/17 - Diagnosis (1) Alcohol dependence with uncomplicated withdrawal Status: Acute (2) Nicotine dependence Status: Acute Qualifiers: Nicotine product type: cigarettes Substance use status: in withdrawal Qualified Code(s): F17.213 - Nicotine dependence, cigarettes, with withdrawal (3) Opioid dependence with withdrawal Status: Acute (4) Chronic low back pain Status: Chronic Qualifiers: Back pain laterality: unspecified Sciatica presence: without sciatica Qualified Code(s): M54.5 - Low back pain; G89.29 - Other chronic pain (5) Hepatitis C Status: Chronic Qualifiers: Viral hepatitis chronicity: chronic Hepatic coma status: without hepatic coma Qualified Code(s): B18.2 - Chronic viral hepatitis C - AMA Did Patient Leave Against Medical Advice: No
[2017-03-09] MEDS ORDERED: METHADONE HCL 10 MG TABLET (FOR DETOX USE ONLY) PO SCH (10:00)
[2017-03-10] MEDS ORDERED: METHADONE HCL 5 MG TABLET (FOR DETOX USE ONLY) PO SCH (06:00)
== END 2017-03-09 06:15 | disposition home or self-care (01) | DRG 773 ==
LOC: YASAS 12:40 → Y3N 17:10
PROVIDERS: ADMIT Internal Medicine; ATTEND Internal Medicine
PROC: HZ2ZZZZ Detoxification Services for Substance Abuse Treatment (ICD-10-PCS; principal; 2017-03-05)
DX: F11.23 Opioid dependence with withdrawal (principal); F10.230 Alcohol dependence with withdrawal, uncomplicated; F17.210 Nicotine dependence, cigarettes, uncomplicated; F19.24 Other psychoactive substance dependence with psychoactive substance-induced mood disorder; G47.00 Insomnia, unspecified; M54.5 Low back pain; G89.29 Other chronic pain; B18.2 Chronic viral hepatitis C
CPT/HCPCS: 36415; 80053; 81003; 85027; 86593; 93005; 93010

== ENCOUNTER 2018-02-17 08:25 | Inpatient (IN) | payer OTHER ==
[2018-02-17 11:00] VITALS: BMI 19.2
--- NOTE | 2018-02-17 11:23 | HP ---
COWS - Scale Resting Pulse: 0= [place] 80 or Below Sweatin=Flushed/Facial Moisture Restless Observation: 1= Difficult to Sit Still Pupil Size: 2= Moderately Dilated Bone or Joint Aches: 2= Severe Diffuse Aches Runny Nose/ Eye Tearin= Runny Nose/Eyes GI Upset > 30mins: 1= Stomach Cramp Tremor Observation: 2= Slight Tremor Visible Yawning Observation: 1= 1-2x During Session Anxiety or Irritability: 2=Irritable/Anxious Goose Flesh Skin: 0=Smooth Skin COWS Score: 15 CIWA Score - CIWA Score Nausea/Vomitin-No Nausea/No Vomiting Muscle Tremors: 3 Anxiety: 4-Mod. Anxious/Guarded Agitation: 3 Paroxysmal Sweats: 3 Orientation: 0-Oriented Tacttile Disturbances: 0-None Auditory Disturbances: 0-None Visual Disturbances: 0-None Headache: 0-None Present CIWA-Ar Total Score: 13 Admission ROS S - HPI Chief Complaint: ETOH/Heroin withdrawal symptoms Allergies/Adverse Reactions: Allergies Allergy/AdvReac Type Severity Reaction Status Date / Time Fish Containing Products Allergy Intermediate Rash Verified 02/17/18 10:47 No Known Drug Allergies Allergy Verified 02/17/18 10:47 History of Present Illness: Patient presents with ETOH/opiod withdrawal symptoms. Pt injected cocaine/ heroin this morning and drank ETOH this morning around 2 am. Pt reports drinking up to 2 pints of vodka daily, 25 bags of heroin daily. Started using heroin at 24 years of age. Denies history of seizures. Has hx of hepatitis c, not treated and depression/anxiety. Was treated years ago with seroquel. Denies suicidal thoughts/attempts. - Ebola screening Have you traveled outside of the country in the last 21 days: No (N) Have you had contact with anyone from an Ebola affected area: No Have you been sick,other than usual withdrawal symptoms: No Do you have a fever: No - Review of Systems Constitutional: Loss of Appetite, Malaise, Night Sweats, Changes in sleep, Unintentional Wgt. Loss EENT: reports: Tearing, Nose Congestion Respiratory: reports: No Symptoms reported Cardiac: reports: No Symptoms Reported GI: reports: Poor Fluid Intake, Abdominal cramping : reports: No Symptoms Reported Musculoskeletal: reports: Back Pain, Joint Pain, Muscle Pain Integumentary: reports: Other (track jacobson) Neuro: reports: Tremors Endocrine: reports: Flushing, Unexplained Weight Loss Hematology: reports: No Symptoms Reported Psychiatric: reports: Orientated x3, Anxious, Depressed Patient History - Patient Medical History Hx Anemia: No Hx Asthma: No Hx Chronic Obstructive Pulmonary Disease (COPD): No Hx Cancer: No Hx Cardiac Disorders: No Hx Congestive Heart Failure: No Hx Hypertension: No Hx Hypercholesterolemia: No Hx Pacemaker: No HX Cerebrovascular Accident: No Hx Seizures: No Hx Dementia: No Hx Diabetes: No Hx Gastrointestinal Disorders: No Hx Liver Disease: Yes (untreated hep c) Hx Genitourinary Disorders: No Hx Sexually Transmitted Disorders: No Hx Renal Disease (ESRD): No Hx Thyroid Disease: No Hx Human Immunodeficiency Virus (HIV): No Hx Hepatitis C: Yes (Not treated) Hx Depression: Yes Hx Suicide Attempt: No Hx Bipolar Disorder: No Hx Schizophrenia: No - Patient Surgical History Past Surgical History: No Hx Neurologic Surgery: No Hx Cataract Extraction: No Hx Cardiac Surgery: No Hx Lung Surgery: No Hx Breast Surgery: No Hx Breast Biopsy: No Hx Abdominal Surgery: No Hx Appendectomy: No Hx Cholecystectomy: No Hx Genitourinary Surgery: No Hx Section: No Hx Orthopedic Surgery: No Anesthesia Reaction: No - PPD History Previous Implant?: Yes Documented Results: Negative w/proof Implanted On Prior [facility] Admission?: Yes Date: 06/23/16 Results: 0 mm - Smoking Cessation Smoking history: Current every day smoker Have you smoked in the past 12 months: Yes Aproximately how many cigarettes per day: 20 Cigars Per Day: 0 Hx Chewing Tobacco Use: No Initiated information on smoking cessation: Yes 'Breaking Loose' booklet given: 02/17/18 - Substance & Tx. History Hx Alcohol Use: Yes Hx Substance Use: Yes Substance Use Type: Alcohol, Cocaine, Heroin - Substances Abused Cocaine Route: Injection Frequency: Daily Amount used: $200 Age of first use: 24 Date of Last Use: 02/17/18 Heroinj Route: Injection Frequency: Daily Amount used: 25 bags Age of first use: 24 Date of Last Use: 02/17/18 Alcohol-vodka/beer Route: Oral Frequency: Daily Amount used: 2 pts./2-6 pks. Age of first use: 17 Date of Last Use: 02/17/18 Family Disease History - Family Disease History Family Disease History: Diabetes: Mother (, ), Sister, Heart Disease: Father (,alcohol), Mother, Other: Father, Mother, Brother (healthy), Sister Admission Physical Exam [facility] - Vital Signs Vital Signs: Vital Signs - 24 hr 02/17/18 10:50 Temperature 97.3 F L Pulse Rate 73 Respiratory 18 Rate Blood Pressure 125/56 - Physical General Appearance: Yes: Disheveled, Cachetic, Sweating, Anxious HEENTM: Yes: EOMI, Hearing grossly Normal, Normal Voice, LIVIER, Pharynx Normal, Nasal Congestion Respiratory: Yes: Within Normal Limits, Chest Non-Tender, Lungs Clear, Normal Breath Sounds Neck: Yes: Within Normal Limits, No masses,lesions,Nodules, Supple Breast: Yes: Breast Exam Deferred Cardiology: Yes: Regular Rhythm, Regular Rate, S1, S2 Abdominal: Yes: Normal Bowel Sounds, Non Tender, Flat, Soft Genitourinary: Yes: Within Normal Limits Back: Yes: Muscle Spasm Extremities: Yes: Tremors Neurological: Yes: looseleaf binder coverer II-XII NML intact, Fully Oriented, Alert, Depressed Affect Integumentary: Yes: Warm, Moist, Track Jacobson Lymphatic: Yes: Within Normal Limits - Diagnostic (1) Opioid withdrawal Current Visit: Yes Status: Acute (2) Alcohol withdrawal Current Visit: Yes Status: Acute Qualifiers: Complication of substance-induced condition: with unspecified complication Qualified Code(s): F10.239 - Alcohol dependence with withdrawal, unspecified (3) Weight loss Current Visit: Yes Status: Acute (4) Low back pain Current Visit: Yes Status: Acute Qualifiers: Sciatica laterality: sciatica laterality unspecified (5) Depressed mood Current Visit: Yes Status: Acute (6) Anxiety disorder Current Visit: Yes Status: Chronic Qualifiers: Anxiety disorder type: unspecified anxiety disorder Qualified Code(s): F41.9 - Anxiety disorder, unspecified (7) Hepatitis C Current Visit: No Status: Chronic Qualifiers: Viral hepatitis chronicity: chronic Hepatic coma status: without hepatic coma Qualified Code(s): B18.2 - Chronic viral hepatitis C Comment: SCHEDULE TO TREAT Cleared for Admission [facility] - Detox or Rehab [facility] Level of Care: Medically Managed Detox Regimen/Protocol: Methadone/Librium S Breath Alcohol Content Breath Alcohol Content: 0.050 Urine Drug Screen - Results Drug Screen Negative: No Urine Drug Screen Results: MIAHI-Cocaine, OPI-Opiates Inpatient Rehab Admission - Initial Determination Are CD services needed?: Yes Free of communicable disease: Yes Not in need of hospitalization: Yes - Rehab Admission Criteria Previous failed treatment: Yes Poor recovery environment: Yes Comorbidities: Yes Lacks judgement: Yes
[2018-02-17] MEDS ORDERED: hydrOXYzine PAMOATE 50 MG CAPSULE (FP) PO PRN (11:36)
[2018-02-17] MEDS ORDERED: MAG HYDROX/AL HYDROX/SIMETH 30 ML UNIT-DOSE CUP PO PRN (11:36)
[2018-02-17] MEDS ORDERED: guaiFENesin/D-METHORPHAN HB 10 ML UNIT-DOSE CUPS PO PRN (11:36)
[2018-02-17] MEDS ORDERED: ACETAMINOPHEN 325 MG TABLET (FP) PO PRN (11:36)
[2018-02-17] MEDS ORDERED: MAGNESIUM CITRATE 300 ML BOTTLE PO PRN (11:36)
[2018-02-17] MEDS ORDERED: MENTHOL/PHENOL 1 EACH UD MM PRN (11:36)
[2018-02-17] MEDS ORDERED: MAGNESIUM HYDROX 2400MG/30ML ORAL SUSPENSION 30 ML CUP PO PRN (11:36)
[2018-02-17] MEDS ORDERED: LOPERAMIDE HCL 2 MG CAPSULE PO PRN (11:36)
[2018-02-17] MEDS ORDERED: P-EPHED 60MG/TRIPROLIDI 2.5MG TABLET PO PRN (11:36)
[2018-02-17] MEDS ORDERED: IBUPROFEN 400 MG TABLET (FP) PO PRN (11:36)
[2018-02-17] MEDS ORDERED: chlordiazePOXIDE HCL 25 MG CAPSULE PO ONE (13:00)
[2018-02-17] MEDS ORDERED: METHADONE HCL 10 MG TABLET (FOR DETOX USE ONLY) PO ONE ×2 (13:00→23:00)
[2018-02-17] MEDS: CYCLOBENZAPRINE HCL 10 MG TABLET (FP) PO PRN ×2 (14:59→22:21)
[2018-02-17] MEDS: chlordiazePOXIDE HCL 25 MG CAPSULE PO SCH ×2 (17:28→22:20)
--- NOTE | 2018-02-17 18:17 | PN ---
S Progress Note Note: Psychiatric nurse practitioner note: Digital Business Analyst approached patient bedside for psychiatric consultation. Pt. refused.
[2018-02-17] MEDS ORDERED: MELATONIN 5 MG TABLETS PO PRN (22:00)
[2018-02-17] MEDS: THIAMINE HCL 100 MG TABLET (FP) PO SCH (22:20)
[2018-02-18] MEDS: chlordiazePOXIDE HCL 25 MG CAPSULE PO SCH ×4 (07:48→22:15)
[2018-02-18] MEDS: CYCLOBENZAPRINE HCL 10 MG TABLET (FP) PO PRN (07:50)
[2018-02-18] MEDS ORDERED: METHADONE HCL 10 MG TABLET (FOR DETOX USE ONLY) PO SCH (10:00)
[2018-02-18] MEDS: PRENATAL VITAMINS W/ FOLIC ACID TABLET (FP) PO SCH (10:31)
[2018-02-18] MEDS: NICOTINE 21 MG/24 HOURS TOPICAL PATCH TD SCH (10:32)
[2018-02-18] MEDS: NICOTINE POLACRILEX 2 MG GUM BC PRN (10:33)
--- NOTE | 2018-02-18 10:37 | EKG ---
Test Reason : Blood Pressure : / mmHG Vent. Rate : 065 BPM Atrial Rate : 065 BPM P-R Int : 164 ms QRS Dur : 092 ms QT Int : 410 ms P-R-T Axes : 080 086 072 degrees QTc Int : 426 ms NORMAL SINUS RHYTHM NORMAL ECG WHEN COMPARED WITH ECG OF 05-MAR-2017 18:26, NO SIGNIFICANT CHANGE WAS FOUND Confirmed by VALENTINA TENA MD ([id number]) on 02/18/2018 10:37:50 AM Referred By: Confirmed By:VALENTINA TENA MD
[2018-02-18 11:11] LABS: HEMATOCRIT 34.3 % (35.4-49); HEMOGLOBIN 11.3 GM/dL (11.7-16.9); MCH 28.3 pg (25.7-33.7); MEAN CELL VOLUME 85.6 fl (80-96); MEAN PLT VOLUME 9.1 fl (7.5-11.1); PLATELET COUNT 182 K/MM3 (134-434); RBC 4.01 M/mm3 (4.00-5.60); RDW 14.7 % (11.9-15.9); WHITE BLOOD COUNT 5.2 K/mm3 (4.0-10.0)
[2018-02-18 11:33] LABS: CHLORIDE 107 mmol/L (98-107); SODIUM 143 mmol/L (136-145)
[2018-02-18 11:52] LABS: ALBUMIN 3.3 g/dl (3.4-5.0); ANION GAP 5 (8-16); BILIRUBIN,TOTAL 0.2 mg/dL (0.2-1.0); BLOOD UREA NITROGEN 16 mg/dL (7-18); CALCIUM 8.7 mg/dL (8.5-10.1); CO2 31 mmol/L (21-32); CREATININE 0.9 mg/dL (0.7-1.3); GLUCOSE,RANDOM 104 mg/dL (74-106); SGOT/AST 33 U/L (15-37); SGPT/ALT 32 U/L (12-78); TOT PROT 7.3 g/dl (6.4-8.2)
[2018-02-18 12:13] LABS: ALK PHOS 77 U/L (45-117)
--- NOTE | 2018-02-18 13:22 | PN ---
S CIWA - CIWA Score Nausea/Vomitin Muscle Tremors: 3 Anxiety: 3 Agitation: 2 Paroxysmal Sweats: 2 Orientation: 0-Oriented Tacttile Disturbances: 1-Very Mild Itch/Numbness Auditory Disturbances: 0-None Visual Disturbances: 2-Mild Sensitivity Headache: 2-Mild CIWA-Ar Total Score: 17 [facility]HS COWS - Scale Resting Pulse: 0= [place] 80 or Below Sweatin= Chills/Flushing Restless Observation: 1= Difficult to Sit Still Pupil Size: 0= Normal to Room Light Bone or Joint Aches: 2= Severe Diffuse Aches Runny Nose/ Eye Tearin= Nasal Congestion GI Upset > 30mins: 2= Nausea/Diarrhea Tremor Observation of Outstretched Hands: 1= Tremor [place], Not Seen Yawning Observation: 1= 1-2x During Session Anxiety or Irritability: 1=Feels Anxious/Irritable Goose Flesh Skin: 3=Piloerection COWS Score: 13 S Progress Note (SOAP) Subjective: Chills, sweats, anxiety,low back pain, sleep interruption Objective: 02/18/18 13:21 Vital Signs 02/18/18 02/18/18 06:00 10:00 Temperature 96.4 F L 97.5 F L Pulse Rate 62 70 Respiratory 18 16 Rate Blood Pressure 128/71 130/73 Laboratory Last Values WBC 5.2 K/mm3 (4.0-10.0) 02/18/18 06:00 RBC 4.01 M/mm3 (4.00-5.60) 02/18/18 06:00 Hgb 11.3 GM/dL (11.7-16.9) L D 02/18/18 06:00 Hct 34.3 % (35.4-49) L 02/18/18 06:00 MCV 85.6 fl (80-96) 02/18/18 06:00 MCH 28.3 pg (25.7-33.7) 02/18/18 06:00 MCHC 33.0 g/dl (32.0-35.9) 02/18/18 06:00 RDW 14.7 % (11.9-15.9) 02/18/18 06:00 Plt Count 182 K/MM3 (134-434) 02/18/18 06:00 MPV 9.1 fl (7.5-11.1) 02/18/18 06:00 Sodium 143 mmol/L (136-145) 02/18/18 06:00 Potassium 4.0 mmol/L (3.5-5.1) 02/18/18 06:00 Chloride 107 mmol/L (98-107) 02/18/18 06:00 Carbon Dioxide 31 mmol/L (21-32) 02/18/18 06:00 Anion Gap 5 (8-16) L 02/18/18 06:00 BUN 16 mg/dL (7-18) 02/18/18 06:00 Creatinine 0.9 mg/dL (0.7-1.3) 02/18/18 06:00 Creat Clearance w eGFR > 60 (>60) 02/18/18 06:00 Random Glucose 104 mg/dL (74-106) 02/18/18 06:00 Calcium 8.7 mg/dL (8.5-10.1) 02/18/18 06:00 Total Bilirubin 0.2 mg/dL (0.2-1.0) D 02/18/18 06:00 AST 33 U/L (15-37) 02/18/18 06:00 ALT 32 U/L (12-78) D 02/18/18 06:00 Alkaline Phosphatase 77 U/L (45-117) 02/18/18 06:00 Total Protein 7.3 g/dl (6.4-8.2) 02/18/18 06:00 Albumin 3.3 g/dl (3.4-5.0) L 02/18/18 06:00 HIV 1&2 Antibody Screen Negative 02/17/18 12:00 HIV P24 Antigen Negative 02/17/18 12:00 Labs noted Assessment: 02/18/18 13:21 Withdrawal sx Plan: Continue detox
--- NOTE | 2018-02-18 13:24 | CONSULT ---
[facility] Psychiatric Consult - Data Date of interview: 02/18/18 Admission source: [facility]
[2018-02-18 13:44] LABS: URINE APPEARANCE SLCLOUDY; URINE BILIRUBIN NEGATIVE (<2.0 mg/dL); URINE BLOOD NEGATIVE (NEGATIVE); URINE COLOR LTYELLOW; URINE GLUCOSE (UA) NEGATIVE (NEGATIVE); URINE KETONE NEGATIVE (NEGATIVE); URINE LEUK ESTERASE NEGATIVE (NEGATIVE); URINE NITRITE NEGATIVE (NEGATIVE); URINE PROTEIN NEGATIVE (NEGATIVE)
[2018-02-18] MEDS: chlordiazePOXIDE HCL 25 MG CAPSULE PO PRN ×2 (14:37→19:53)
--- NOTE | 2018-02-18 16:26 | CONSULT ---
[facility] Psychiatric Consult - Data Date of interview: 02/18/18 Admission source: [facility] Identifying data: One of multiple admisssion to [facility] for this 47 y/o male seeking detox treatment on for alcohol,cocaine and heroin dependence.Patient is ,a father of three,domiciled,unemployed and supported on welfare. Substance Abuse History: Confirmed by patient in this interview.Details in current [facility] report : Smoking history: Current every day smoker. Have you smoked in the past 12 months: Yes. Aproximately how many cigarettes per day: 20. Cigars Per Day: 0. Hx Chewing Tobacco Use: No. Initiated information on smoking cessation: Yes. 'Breaking Loose' booklet given: 02/17/18. - Substance & Tx. History. Hx Alcohol Use: Yes. Hx Substance Use: Yes. Substance Use Type : Alcohol, Cocaine, Heroin. - Substances Abused. Cocaine. Route: Injection. Frequency: Daily. Amount used: $200. Age of first use: 24. Date of Last Use: 02/17/18. Heroinj. Route: Injection. Frequency: Daily. Amount used: 25 bags. Age of first use: 24. Date of Last Use: 02/17/18. Alcohol-vodka/beer. Route: Oral. Frequency: Daily. Amount used: 2 pts./2-6 pks. Age of first use: 17. Date of Last Use: 02/17/18 Medical History: Hepatitis C and lower back pain. Psychiatric History: No history of psychiatric hospitalizations.Mr Matthews reports that he dropped out of psychiatric OPD care ([facility]) several months ago.Diagnosed with Bipolar Disorder.Patient admits to past maintenance on seroquel 100 mg/hs + depakote 500 mg/hs + ambien 10 mg/hs.Not taken for more than six months (self-report).Patient denies history of suicide attempts. Physical/Sexual Abuse/Trauma History: No history. Additional Comment: Urine Drug Screen Results: MIHAI-Cocaine, OPI-Opiates.Noted. Mental Status Exam - Mental Status Exam Alert and Oriented to: Time, Place, Person Cognitive Function: Good Patient Appearance: Well Groomed Mood: Withdrawn Affect: Mood Congruent Patient Behavior: Fatigued, Appropriate, Cooperative Speech Pattern: Clear (bilingual) Voice Loudness: Normal Thought Process: Goal Oriented Thought Disorder: Not Present Hallucinations: Denies Suicidal Ideation: Denies Homicidal Ideation: Denies Insight/Judgement: Poor Sleep: Poorly, Difficulty falling asleep Appetite: Good Muscle strength/Tone: Normal Gait/Station: Normal Psychiatric Findings - Problem List ([place] 1, 2,3) (1) Opioid dependence with withdrawal Current Visit: Yes Status: Acute (2) Alcohol dependence with uncomplicated withdrawal Current Visit: Yes Status: Acute (3) Cocaine dependence Current Visit: Yes Status: Acute (4) Nicotine dependence Current Visit: Yes Status: Acute Qualifiers: Nicotine product type: cigarettes Substance use status: uncomplicated Qualified Code(s): F17.210 - Nicotine dependence, cigarettes, uncomplicated (5) Drug-induced mood disorder Current Visit: Yes Status: Acute (6) Insomnia Current Visit: Yes Status: Chronic - Initial Treatment Plan Initial Treatment Plan: Psychoeducation.Detoxification.Sleep hygiene.Patient declines to resume depakote and seroquel." I want to take ambien only." Will start ambien 10 mg po hs prn.Mr Matthews is made aware of the potential for parsomnias (sleep-walking).Observation.
[2018-02-18] MEDS: THIAMINE HCL 100 MG TABLET (FP) PO SCH (22:15)
[2018-02-18] MEDS: ZOLPIDEM TARTRATE 10 MG TABLET (PARK CARE ONLY) PO PRN (22:17)
[2018-02-19] MEDS: chlordiazePOXIDE HCL 25 MG CAPSULE PO SCH ×2 (05:50→10:22)
[2018-02-19] MEDS: CYCLOBENZAPRINE HCL 10 MG TABLET (FP) PO PRN ×3 (05:51→22:25)
[2018-02-19] MEDS: PRENATAL VITAMINS W/ FOLIC ACID TABLET (FP) PO SCH (10:22)
[2018-02-19] MEDS: NICOTINE POLACRILEX 2 MG GUM BC PRN ×2 (10:22→18:00)
[2018-02-19] MEDS: METHADONE HCL 5 MG TABLET (FOR DETOX USE ONLY) PO SCH (10:22)
[2018-02-19] MEDS: NICOTINE 21 MG/24 HOURS TOPICAL PATCH TD SCH (10:22)
--- NOTE | 2018-02-19 11:35 | PN ---
[facility] CIWA - CIWA Score Nausea/Vomitin-Mild Nausea/No Vomiting Muscle Tremors: 4-Moderate,w/Arms Extend Anxiety: 3 Agitation: 4-Moderately Restless Paroxysmal Sweats: 1-Minimal Palms Moist Orientation: 0-Oriented Tacttile Disturbances: 1-Very Mild Itch/Numbness Auditory Disturbances: 0-None Visual Disturbances: 0-None Headache: 0-None Present CIWA-Ar Total Score: 14 S COWS - Scale Resting Pulse: 1= [place] 81-100 Sweatin= Chills/Flushing Restless Observation: 1= Difficult to Sit Still Pupil Size: 0= Normal to Room Light Bone or Joint Aches: 1= Mild Discomfort Runny Nose/ Eye Tearin= Nasal Congestion GI Upset > 30mins: 2= Nausea/Diarrhea Tremor Observation of Outstretched Hands: 1= Tremor [place], Not Seen Yawning Observation: 2= >3x During Session Anxiety or Irritability: 2=Irritable/Anxious Goose Flesh Skin: 0=Smooth Skin COWS Score: 12 S Progress Note (SOAP) Subjective: sweat joint ache tremor gi distress anxiety restlessness Objective: 02/19/18 11:34 Vital Signs Temperature 96.1 F L 02/19/18 10:36 Pulse Rate 75 02/19/18 10:36 Respiratory Rate 18 02/19/18 10:36 Blood Pressure 123/73 02/19/18 10:36 O2 Sat by Pulse Oximetry (%) Laboratory Last Values WBC 5.2 K/mm3 (4.0-10.0) 02/18/18 06:00 RBC 4.01 M/mm3 (4.00-5.60) 02/18/18 06:00 Hgb 11.3 GM/dL (11.7-16.9) L D 02/18/18 06:00 Hct 34.3 % (35.4-49) L 02/18/18 06:00 MCV 85.6 fl (80-96) 02/18/18 06:00 MCH 28.3 pg (25.7-33.7) 02/18/18 06:00 MCHC 33.0 g/dl (32.0-35.9) 02/18/18 06:00 RDW 14.7 % (11.9-15.9) 02/18/18 06:00 Plt Count 182 K/MM3 (134-434) 02/18/18 06:00 MPV 9.1 fl (7.5-11.1) 02/18/18 06:00 Sodium 143 mmol/L (136-145) 02/18/18 06:00 Potassium 4.0 mmol/L (3.5-5.1) 02/18/18 06:00 Chloride 107 mmol/L (98-107) 02/18/18 06:00 Carbon Dioxide 31 mmol/L (21-32) 02/18/18 06:00 Anion Gap 5 (8-16) L 02/18/18 06:00 BUN 16 mg/dL (7-18) 02/18/18 06:00 Creatinine 0.9 mg/dL (0.7-1.3) 02/18/18 06:00 Creat Clearance w eGFR > 60 (>60) 02/18/18 06:00 Random Glucose 104 mg/dL (74-106) 02/18/18 06:00 Calcium 8.7 mg/dL (8.5-10.1) 02/18/18 06:00 Total Bilirubin 0.2 mg/dL (0.2-1.0) D 02/18/18 06:00 AST 33 U/L (15-37) 02/18/18 06:00 ALT 32 U/L (12-78) D 02/18/18 06:00 Alkaline Phosphatase 77 U/L (45-117) 02/18/18 06:00 Total Protein 7.3 g/dl (6.4-8.2) 02/18/18 06:00 Albumin 3.3 g/dl (3.4-5.0) L 02/18/18 06:00 Urine Color Ltyellow 02/18/18 13:27 Urine Appearance Slcloudy 02/18/18 13:27 Urine pH 8.0 (5.0-8.0) 02/18/18 13:27 Ur Specific [place] 1.018 (1.001-1.035) 02/18/18 13:27 Urine Protein Negative (NEGATIVE) 02/18/18 13:27 Urine Glucose (UA) Negative (NEGATIVE) 02/18/18 13:27 Urine Ketones Negative (NEGATIVE) 02/18/18 13:27 Urine Blood Negative (NEGATIVE) 02/18/18 13:27 Urine Nitrite Negative (NEGATIVE) 02/18/18 13:27 Urine Bilirubin Negative (<2.0 mg/dL) 02/18/18 13:27 Urine Urobilinogen 2.0 mg/dL (0.2-1.0) 02/18/18 13:27 Ur Leukocyte Esterase Negative (NEGATIVE) 02/18/18 13:27 RPR Titer Nonreactive (NONREACTIVE) 02/18/18 06:00 HIV 1&2 Antibody Screen Negative 02/17/18 12:00 HIV P24 Antigen Negative 02/17/18 12:00 lab noted Assessment: 02/19/18 11:35 withdrawal sx Plan: continue detox
[2018-02-19] MEDS: chlordiazePOXIDE HCL 25 MG CAPSULE PO PRN ×2 (13:54→20:15)
[2018-02-19] MEDS ORDERED: COLLOIDAL OATMEAL 1 BAR EACH TP PRN (15:22)
[2018-02-19] MEDS: chlordiazePOXIDE 5 MG CAPSULE PO SCH ×2 (17:59→22:23)
[2018-02-19] MEDS: THIAMINE HCL 100 MG TABLET (FP) PO SCH (22:23)
[2018-02-19] MEDS: ZOLPIDEM TARTRATE 10 MG TABLET (PARK CARE ONLY) PO PRN (22:25)
[2018-02-20] MEDS: chlordiazePOXIDE 5 MG CAPSULE PO SCH ×2 (05:29→10:21)
[2018-02-20] MEDS: CYCLOBENZAPRINE HCL 10 MG TABLET (FP) PO PRN ×3 (05:31→22:15)
[2018-02-20] MEDS: NICOTINE POLACRILEX 2 MG GUM BC PRN ×2 (10:21→17:27)
[2018-02-20] MEDS: METHADONE HCL 5 MG TABLET (FOR DETOX USE ONLY) PO SCH (10:21)
[2018-02-20] MEDS: NICOTINE 21 MG/24 HOURS TOPICAL PATCH TD SCH (10:21)
[2018-02-20] MEDS: PRENATAL VITAMINS W/ FOLIC ACID TABLET (FP) PO SCH (10:21)
--- NOTE | 2018-02-20 10:43 | PN ---
[facility] Progress Note (SOAP) Subjective: joint ache muscle cramp sweat tremor restlessness poor sleep Objective: 02/20/18 10:42 Vital Signs Temperature 96.6 F L 02/20/18 10:16 Pulse Rate 79 02/20/18 10:16 Respiratory Rate 18 02/20/18 10:16 Blood Pressure 123/69 02/20/18 10:16 O2 Sat by Pulse Oximetry (%) Laboratory Last Values WBC 5.2 K/mm3 (4.0-10.0) 02/18/18 06:00 RBC 4.01 M/mm3 (4.00-5.60) 02/18/18 06:00 Hgb 11.3 GM/dL (11.7-16.9) L D 02/18/18 06:00 Hct 34.3 % (35.4-49) L 02/18/18 06:00 MCV 85.6 fl (80-96) 02/18/18 06:00 MCH 28.3 pg (25.7-33.7) 02/18/18 06:00 MCHC 33.0 g/dl (32.0-35.9) 02/18/18 06:00 RDW 14.7 % (11.9-15.9) 02/18/18 06:00 Plt Count 182 K/MM3 (134-434) 02/18/18 06:00 MPV 9.1 fl (7.5-11.1) 02/18/18 06:00 Sodium 143 mmol/L (136-145) 02/18/18 06:00 Potassium 4.0 mmol/L (3.5-5.1) 02/18/18 06:00 Chloride 107 mmol/L (98-107) 02/18/18 06:00 Carbon Dioxide 31 mmol/L (21-32) 02/18/18 06:00 Anion Gap 5 (8-16) L 02/18/18 06:00 BUN 16 mg/dL (7-18) 02/18/18 06:00 Creatinine 0.9 mg/dL (0.7-1.3) 02/18/18 06:00 Creat Clearance w eGFR > 60 (>60) 02/18/18 06:00 Random Glucose 104 mg/dL (74-106) 02/18/18 06:00 Calcium 8.7 mg/dL (8.5-10.1) 02/18/18 06:00 Total Bilirubin 0.2 mg/dL (0.2-1.0) D 02/18/18 06:00 AST 33 U/L (15-37) 02/18/18 06:00 ALT 32 U/L (12-78) D 02/18/18 06:00 Alkaline Phosphatase 77 U/L (45-117) 02/18/18 06:00 Total Protein 7.3 g/dl (6.4-8.2) 02/18/18 06:00 Albumin 3.3 g/dl (3.4-5.0) L 02/18/18 06:00 Urine Color Ltyellow 02/18/18 13:27 Urine Appearance Slcloudy 02/18/18 13:27 Urine pH 8.0 (5.0-8.0) 02/18/18 13:27 Ur Specific [place] 1.018 (1.001-1.035) 02/18/18 13:27 Urine Protein Negative (NEGATIVE) 02/18/18 13:27 Urine Glucose (UA) Negative (NEGATIVE) 02/18/18 13:27 Urine Ketones Negative (NEGATIVE) 02/18/18 13:27 Urine Blood Negative (NEGATIVE) 02/18/18 13:27 Urine Nitrite Negative (NEGATIVE) 02/18/18 13:27 Urine Bilirubin Negative (<2.0 mg/dL) 02/18/18 13:27 Urine Urobilinogen 2.0 mg/dL (0.2-1.0) 02/18/18 13:27 Ur Leukocyte Esterase Negative (NEGATIVE) 02/18/18 13:27 RPR Titer Nonreactive (NONREACTIVE) 02/18/18 06:00 HIV 1&2 Antibody Screen Negative 02/17/18 12:00 HIV P24 Antigen Negative 02/17/18 12:00 lab noted Assessment: 02/20/18 10:43 withdrawal sx Plan: continue detox
[2018-02-20] MEDS: chlordiazePOXIDE HCL 10 MG CAPSULE PO SCH ×2 (17:25→22:14)
[2018-02-20] MEDS: THIAMINE HCL 100 MG TABLET (FP) PO SCH (22:14)
[2018-02-20] MEDS: ZOLPIDEM TARTRATE 10 MG TABLET (PARK CARE ONLY) PO PRN (22:15)
[2018-02-21] MEDS: chlordiazePOXIDE HCL 10 MG CAPSULE PO SCH ×2 (05:47→10:17)
[2018-02-21] MEDS: CYCLOBENZAPRINE HCL 10 MG TABLET (FP) PO PRN (05:50)
[2018-02-21] MEDS ORDERED: METHADONE HCL 10 MG TABLET (FOR DETOX USE ONLY) PO SCH (10:00)
[2018-02-21] MEDS: NICOTINE 21 MG/24 HOURS TOPICAL PATCH TD SCH (10:16)
[2018-02-21] MEDS: PRENATAL VITAMINS W/ FOLIC ACID TABLET (FP) PO SCH (10:17)
[2018-02-21 10:48] VITALS: BP 110/64; PULSE 76; TEMP 97.7
--- NOTE | 2018-02-21 11:24 | DS ---
[facility] Detox Discharge Summary Admission Date: 02/17/18 Discharge Date: 02/21/18 - History Present History: Alcohol Dependence, Opioid Dependence Additional Comments: feeling better denies alcohol withdrawal sx reports wants to go to methadone program today that the counselor arranged near his house patient is alert oriented x 3 no acute distress - Physical Exam Results Vital Signs: Vital Signs Temperature 97.7 F 02/21/18 10:48 Pulse Rate 76 02/21/18 10:48 Respiratory Rate 20 02/21/18 10:48 Blood Pressure 110/64 02/21/18 10:48 O2 Sat by Pulse Oximetry (%) Pertinent Admission Physical Exam Findings: withdrawal sx Vital Signs Temperature 97.7 F 02/21/18 10:48 Pulse Rate 76 02/21/18 10:48 Respiratory Rate 20 02/21/18 10:48 Blood Pressure 110/64 02/21/18 10:48 O2 Sat by Pulse Oximetry (%) Laboratory Last Values WBC 5.2 K/mm3 (4.0-10.0) 02/18/18 06:00 RBC 4.01 M/mm3 (4.00-5.60) 02/18/18 06:00 Hgb 11.3 GM/dL (11.7-16.9) L D 02/18/18 06:00 Hct 34.3 % (35.4-49) L 02/18/18 06:00 MCV 85.6 fl (80-96) 02/18/18 06:00 MCH 28.3 pg (25.7-33.7) 02/18/18 06:00 MCHC 33.0 g/dl (32.0-35.9) 02/18/18 06:00 RDW 14.7 % (11.9-15.9) 02/18/18 06:00 Plt Count 182 K/MM3 (134-434) 02/18/18 06:00 MPV 9.1 fl (7.5-11.1) 02/18/18 06:00 Sodium 143 mmol/L (136-145) 02/18/18 06:00 Potassium 4.0 mmol/L (3.5-5.1) 02/18/18 06:00 Chloride 107 mmol/L (98-107) 02/18/18 06:00 Carbon Dioxide 31 mmol/L (21-32) 02/18/18 06:00 Anion Gap 5 (8-16) L 02/18/18 06:00 BUN 16 mg/dL (7-18) 02/18/18 06:00 Creatinine 0.9 mg/dL (0.7-1.3) 02/18/18 06:00 Creat Clearance w eGFR > 60 (>60) 02/18/18 06:00 Random Glucose 104 mg/dL (74-106) 02/18/18 06:00 Calcium 8.7 mg/dL (8.5-10.1) 02/18/18 06:00 Total Bilirubin 0.2 mg/dL (0.2-1.0) D 02/18/18 06:00 AST 33 U/L (15-37) 02/18/18 06:00 ALT 32 U/L (12-78) D 02/18/18 06:00 Alkaline Phosphatase 77 U/L (45-117) 02/18/18 06:00 Total Protein 7.3 g/dl (6.4-8.2) 02/18/18 06:00 Albumin 3.3 g/dl (3.4-5.0) L 02/18/18 06:00 Urine Color Ltyellow 02/18/18 13:27 Urine Appearance Slcloudy 02/18/18 13:27 Urine pH 8.0 (5.0-8.0) 02/18/18 13:27 Ur Specific [place] 1.018 (1.001-1.035) 02/18/18 13:27 Urine Protein Negative (NEGATIVE) 02/18/18 13:27 Urine Glucose (UA) Negative (NEGATIVE) 02/18/18 13:27 Urine Ketones Negative (NEGATIVE) 02/18/18 13:27 Urine Blood Negative (NEGATIVE) 02/18/18 13:27 Urine Nitrite Negative (NEGATIVE) 02/18/18 13:27 Urine Bilirubin Negative (<2.0 mg/dL) 02/18/18 13:27 Urine Urobilinogen 2.0 mg/dL (0.2-1.0) 02/18/18 13:27 Ur Leukocyte Esterase Negative (NEGATIVE) 02/18/18 13:27 RPR Titer Nonreactive (NONREACTIVE) 02/18/18 06:00 HIV 1&2 Antibody Screen Negative 02/17/18 12:00 HIV P24 Antigen Negative 02/17/18 12:00 lab noted - Treatment Hospital Course: Detox Protocol Followed, Detoxed Safely, Responded well, Discharged Condition Good, Rehab Referral Accepted Patient has Accepted a Rehab Referral to: methadone maintenance program - Medication Discharge Medications: Ambulatory Orders NK [No Known Home Medication] 02/17/18 - Diagnosis (1) Alcohol dependence with uncomplicated withdrawal Current Visit: Yes Status: Acute (2) Nicotine dependence Current Visit: Yes Status: Acute Qualifiers: Nicotine product type: cigarettes Substance use status: in withdrawal Qualified Code(s): F17.213 - Nicotine dependence, cigarettes, with withdrawal (3) Opioid dependence with withdrawal Current Visit: Yes Status: Acute (4) Weight loss Current Visit: Yes Status: Acute (5) Hepatitis C Current Visit: No Status: Resolved Qualifiers: Viral hepatitis chronicity: chronic Hepatic coma status: without hepatic coma Qualified Code(s): B18.2 - Chronic viral hepatitis C - AMA Did Patient Leave Against Medical Advice: No
[2018-02-22] MEDS ORDERED: METHADONE HCL 5 MG TABLET (FOR DETOX USE ONLY) PO SCH (06:00)
== END 2018-02-21 01:05 | disposition home or self-care (01) | DRG 773 ==
LOC: YASAS 08:25 → Y6N 12:30
PROVIDERS: ADMIT Internal Medicine; ATTEND Internal Medicine
PROC: HZ2ZZZZ Detoxification Services for Substance Abuse Treatment (ICD-10-PCS; principal; 2018-02-17)
DX: F11.23 Opioid dependence with withdrawal (principal); F10.230 Alcohol dependence with withdrawal, uncomplicated; F14.20 Cocaine dependence, uncomplicated; F17.213 Nicotine dependence, cigarettes, with withdrawal; F19.24 Other psychoactive substance dependence with psychoactive substance-induced mood disorder; F19.280 Other psychoactive substance dependence with psychoactive substance-induced anxiety disorder; G47.00 Insomnia, unspecified; M54.5 Low back pain; G89.29 Other chronic pain; R63.4 Abnormal weight loss; Z68.1 Body mass index [BMI] 19.9 or less, adult; F41.9 Anxiety disorder, unspecified; F32.9 Major depressive disorder, single episode, unspecified
CPT/HCPCS: 36415; 80053; 81003; 85027; 86593; 87389; 93005; 93010

== ENCOUNTER 2020-06-22 10:36 | Inpatient (IN) | payer OTHER ==
[2020-06-22 11:43] VITALS: BMI 19.2
--- NOTE | 2020-06-22 13:11 | BHS.RME ---
Substance Use & Tx History - Substance Use History Alcohol Substance amount: 2 pintsof vodka, 6 pack of beer Frequency of use: Daily Substance route: Oral Date of Last Use: 06/22/20 Heroin Substance amount: 10 bags Frequency of use: Daily Substance route: Injection (ex: intravenous or skin popping) Date of Last Use: 06/21/20 Cocaine- Powder Substance amount: $60 Frequency of use: Daily Substance route: Injection (ex: intravenous or skin popping) Date of Last Use: 06/21/20 OxyContin Substance amount: 30mg Frequency of use: Daily Substance route: Oral Date of Last Use: 06/21/20 Xanax Substance amount: 0.5 mg Frequency of use: Daily Substance route: Oral Date of Last Use: 06/21/20 - Last Treatment Date of last treatment: [facility] Where was last treatment: Detox Physical/Psych/Mental Status - Behavior General Behavior: Increased activity (restlessness, agitation) Eye Contact: Normal - Cooperativeness Cooperativeness: Cooperative - Thinking Thought Processes: Tight Thought content: Future oriented - Physical Health Problems Is patient presently having any pain?: Yes (back, chronic) Does patient presently have any injuries (include location): No Does patient currently have a fever: No COWS - Scale Resting Pulse: 0= [place] 80 or Below Sweatin= Chills/Flushing Restless Observation: 1= Difficult to Sit Still Pupil Size: 1= Pupils >than Normal Bone or Joint Aches: 2= Severe Diffuse Aches Runny Nose/ Eye Tearin= None GI Upset > 30mins: 1= Stomach Cramp Tremor Observation: 2= Slight Tremor Visible Yawning Observation: 1= 1-2x During Session Anxiety or Irritability: 2=Irritable/Anxious Goose Flesh Skin: 3=Piloerection COWS Score: 14 CIWA Nausea/Vomitin Muscle Tremors: 2 Anxiety: 2 Agitation: 2 Paroxysmal Sweats: 2 Orientation: 0-Oriented Tacttile Disturbances: 0-None Auditory Disturbances: 0-None Visual Disturbances: 0-None Headache: 0-None Present CIWA-Ar Total Score: 10
--- NOTE | 2020-06-22 13:13 | HP ---
COWS - Scale Resting Pulse: 0= [place] 80 or Below Sweatin= Chills/Flushing Restless Observation: 1= Difficult to Sit Still Pupil Size: 1= Pupils >than Normal Bone or Joint Aches: 2= Severe Diffuse Aches Runny Nose/ Eye Tearin= None GI Upset > 30mins: 1= Stomach Cramp Tremor Observation: 2= Slight Tremor Visible Yawning Observation: 1= 1-2x During Session Anxiety or Irritability: 2=Irritable/Anxious Goose Flesh Skin: 3=Piloerection COWS Score: 14 CIWA Score Nausea/Vomitin Muscle Tremors: 2 Anxiety: 2 Agitation: 2 Paroxysmal Sweats: 2 Orientation: 0-Oriented Tacttile Disturbances: 0-None Auditory Disturbances: 0-None Visual Disturbances: 0-None Headache: 0-None Present CIWA-Ar Total Score: 10 - Admission Criteria OASAS Guidelines: Admission for Medically Managed Detox: Requires at least one of the followin. CIWA greater than 12 2. Seizures within the past 24 hours 3. Delirium tremens within the past 24 hours 4. Hallucinations within the past 24 hours 5. Acute intervention needed for co occurring medical disorder 6. Acute intervention needed for co occurring psychiatric disorder 7. Severe withdrawal that cannot be handled at a lower level of care (continued vomiting, continued diarrhea, abnormal vital signs) requiring intravenous medication and/or fluids 8. Patient presents the following: Acute intervention needed for co-occurring med or psych disorder Admission Criteria Met: Admission criteria met Admitting History and Physical - Smoking History Smoking history: Current every day smoker Have you smoked in the past 12 months: Yes Aproximately how many cigarettes per day: 20 - Alcohol/Substance Use Hx Alcohol Use: Yes Admission ROS [facility] - [facility] Chief Complaint: Withdrawal symptoms Allergies/Adverse Reactions: Allergies Allergy/AdvReac Type Severity Reaction Status Date / Time Fish Containing Products Allergy Intermediate Rash Verified 02/17/18 10:47 No Known Drug Allergies Allergy Verified 02/17/18 10:47 History of Present Illness: Patient is a 49 year old male with poly substance abuse, he reports his last detox was at [facility] in March. Patient is an IVDU, this morning, as security was searching his belongings, information security architect got stuck with a needle that was in his bag. As per ED, patient needs Hep B and HIV ordered, he is a known hep C positive. Hi is on methadone 70mg at [facility] in the [place], medicated this morning. Exam Limitations: No Limitations - Ebola screening Have you traveled outside of the country in the last 21 days: No Have you had contact with anyone from an Ebola affected area: No Have you been sick,other than usual withdrawal symptoms: No Do you have a fever: No - Review of Systems Constitutional: Chills, Loss of Appetite, Changes in sleep, Unintentional Wgt. Loss EENT: reports: Dental Problems (missing some teeth) Respiratory: reports: No Symptoms reported Cardiac: reports: No Symptoms Reported GI: reports: Diarrhea, Nausea, Poor Appetite, Abdominal cramping : reports: No Symptoms Reported Integumentary: reports: Sweating Neuro: reports: Numbness, Tremors Endocrine: reports: No Symptoms Reported Hematology: reports: No Symptoms Reported Psychiatric: reports: No Sypmtoms Reported, Depressed (h/o) Other Systems: Reviewed and Negative Patient History - Patient Medical History Hx Anemia: No Hx Asthma: No Hx Chronic Obstructive Pulmonary Disease (COPD): No Hx Cancer: No Hx Cardiac Disorders: No Hx Congestive Heart Failure: No Hx Hypertension: No Hx Hypercholesterolemia: No Hx Pacemaker: No HX Cerebrovascular Accident: No Hx Seizures: No Hx Dementia: No Hx Diabetes: No Hx Gastrointestinal Disorders: No Hx Liver Disease: Yes (untreated hep c) Hx Genitourinary Disorders: No Hx Sexually Transmitted Disorders: No Hx Renal Disease (ESRD): No Hx Thyroid Disease: No Hx Human Immunodeficiency Virus (HIV): No Hx Hepatitis C: Yes (Not treated) Hx Depression: Yes Hx Suicide Attempt: No Hx Bipolar Disorder: No Hx Schizophrenia: No - Patient Surgical History Past Surgical History: No - PPD History Previous Implant?: Yes Documented Results: Negative w/proof Implanted On Prior [facility] Admission?: Yes Date: 02/19/18 Results: 0 mm PPD to be Administered?: Yes - Smoking Cessation Smoking history: Current every day smoker Have you smoked in the past 12 months: Yes Aproximately how many cigarettes per day: 20 Cigars Per Day: 0 Hx Chewing Tobacco Use: No Initiated information on smoking cessation: Yes 'Breaking Loose' booklet given: 06/23/20 - Substances abused Alcohol Substance route: Oral Frequency: Daily Amount used: 2 PTS VODKA/ 6PK BEER Age of first use: 17 Date of last use: 06/22/20 Alprazolam (Xanax) Substance route: Oral Frequency: Daily Amount used: 4MG Age of first use: 34 Date of last use: 06/21/20 Heroin Substance route: Injection Frequency: Daily Amount used: 10BAGS Age of first use: 24 Date of last use: 06/21/20 Cocaine Substance route: Injection Frequency: Daily Amount used: $60 Age of first use: 47 Date of last use: 06/21/20 Admission Physical Exam [facility] - Vital Signs Vital Signs: Vital Signs - 24 hr 06/22/20 11:41 Temperature 97.9 F Pulse Rate 63 Respiratory 16 Rate Blood Pressure 137/81 - Physical General Appearance: Yes: No Apparent Distress, Tremorous HEENTM: Yes: Hearing grossly Normal, Normal ENT Inspection, Normocephalic, Normal Voice, Pharynx Normal Respiratory: Yes: Chest Non-Tender, Lungs Clear, No Respiratory Distress, No Accessory Muscle Use Neck: Yes: No masses,lesions,Nodules, Supple Breast: Yes: Breast Exam Deferred Cardiology: Yes: Regular Rhythm, Regular Rate Abdominal: Yes: Normal Bowel Sounds, Non Tender, Flat, Soft Genitourinary: Yes: Within Normal Limits Back: Yes: Normal Inspection Musculoskeletal: Yes: full range of Motion, Pelvis Stable, Back pain Extremities: Yes: Non-Tender, Tremors Neurological: Yes: Fully Oriented, Alert, Normal Mood/Affect, Normal Response Integumentary: Yes: Cold, [place] (legs and arms) Lymphatic: Yes: Within Normal Limits - Diagnostic (1) Methadone maintenance therapy patient Current Visit: Yes Status: Acute Comment: on 70mg of methadone (2) Alcohol dependence with uncomplicated withdrawal Current Visit: Yes Status: Acute (3) Nicotine dependence Current Visit: Yes Status: Acute Qualifiers: Nicotine product type: cigarettes Substance use status: uncomplicated Qualified Code(s): F17.210 - Nicotine dependence, cigarettes, uncomplicated (4) Opioid dependence with withdrawal Current Visit: Yes Status: Acute (5) Low back pain Current Visit: Yes Status: Chronic Qualifiers: Chronicity: chronic Back pain laterality: bilateral Sciatica laterality: bilateral sciatica (6) Uncomplicated sedative, hypnotic or anxiolytic withdrawal Current Visit: Yes Status: Chronic (7) Hepatitis C Current Visit: Yes Status: Chronic Qualifiers: Viral hepatitis chronicity: chronic Hepatic coma status: without hepatic coma Qualified Code(s): B18.2 - Chronic viral hepatitis C Cleared for Admission S - Detox or Rehab [facility] Level of Care: Medically Managed Detox Regimen/Protocol: Valium Claeared for Rehab Admission: No Breathalyzer - Breathalyzer Breathalyzer: 0 Urine Drug Screen - Test Device Lot number: [id number] Expiration date: 02/19/22 - Control Is test valid?: Yes - Results Drug screen NEGATIVE: No Urine drug screen results: MIHAI-Cocaine, FEN-Fentanyl, MOP-Opiates, OXY- Oxycodone, MTD-Methadone, BZO-Benzodiazepines Inpatient Rehab Admission - Rehab Decision to Admit Inpatient rehab admission?: No
[2020-06-22] MEDS ORDERED: MAGNESIUM CITRATE 300 ML BOTTLE PO PRN (13:27)
[2020-06-22] MEDS ORDERED: METHOCARBAMOL 500 MG TABLET PO PRN (13:27)
[2020-06-22] MEDS ORDERED: METHADONE HCL 10 MG TABLET (FOR DETOX USE ONLY) PO ONE (13:27)
[2020-06-22] MEDS ORDERED: BISMUTH SUBSALICYLATE 524 MG/30 ML UD PO PRN (13:27)
[2020-06-22] MEDS ORDERED: MENTHOL/PHENOL 1 EACH UD MM PRN (13:27)
[2020-06-22] MEDS ORDERED: ACETAMINOPHEN 325 MG TABLET (FP) PO PRN ×2 (13:27)
[2020-06-22] MEDS ORDERED: diazePAM 5 MG TABLET PO PRN (13:27)
[2020-06-22] MEDS ORDERED: cloNIDine HCL 0.1 MG TABLET PO PRN (13:27)
[2020-06-22] MEDS ORDERED: MAGNESIUM HYDROX 2400MG/30ML ORAL SUSPENSION 30 ML CUP PO PRN (13:27)
[2020-06-22] MEDS ORDERED: MAG HYDROX/AL HYDROX/SIMETH 30 ML UNIT-DOSE CUP PO PRN (13:27)
[2020-06-22] MEDS ORDERED: NALOXONE HCL 0.4 MG/ML VIAL IM PRN (13:27)
[2020-06-22] MEDS: diazePAM 5 MG TABLET PO SCH ×2 (15:17→21:55)
[2020-06-22] MEDS: IBUPROFEN 400 MG TABLET (FP) PO PRN (15:21)
[2020-06-22] MEDS: THIAMINE HCL 100 MG TABLET (FP) PO SCH (21:55)
[2020-06-22] MEDS: MELATONIN 5 MG TABLETS PO SCH (21:55)
[2020-06-22] MEDS: CYCLOBENZAPRINE HCL 10 MG TABLET (FP) PO PRN (21:55)
[2020-06-23] MEDS: diazePAM 5 MG TABLET PO SCH ×3 (05:39→22:13)
--- NOTE | 2020-06-23 09:24 | EKG ---
Test Reason : Blood Pressure : / mmHG Vent. Rate : 057 BPM Atrial Rate : 057 BPM P-R Int : 168 ms QRS Dur : 100 ms QT Int : 486 ms P-R-T Axes : 082 087 071 degrees QTc Int : 473 ms SINUS BRADYCARDIA OTHERWISE NORMAL ECG WHEN COMPARED WITH ECG OF 17-FEB-2018 15:10, NO SIGNIFICANT CHANGE WAS FOUND Confirmed by Manuel Gibbs ([id number]) on 06/23/2020 9:24:40 AM Referred By: Confirmed By:Manuel Gibbs
[2020-06-23] MEDS ORDERED: METHADONE HCL 10 MG TABLET ONE (09:41)
[2020-06-23] MEDS ORDERED: METHADONE HCL 40 MG DISPERSABLE TABLET ONE (09:42)
[2020-06-23] MEDS: PRENATAL VITAMINS W/ FOLIC ACID TABLET (FP) PO SCH (09:52)
[2020-06-23] MEDS: NICOTINE 14 MG/24 HOURS TOPICAL PATCH TD SCH (09:52)
[2020-06-23] MEDS: NICOTINE POLACRILEX 2 MG GUM BUC PRN ×2 (09:53→17:37)
[2020-06-23] MEDS: CYCLOBENZAPRINE HCL 10 MG TABLET (FP) PO PRN ×2 (09:54→17:37)
[2020-06-23] MEDS ORDERED: METHADONE HCL 10 MG TABLET PO ONE (10:00)
[2020-06-23] MEDS ORDERED: METHADONE 40 MG, METHADONE 30 MG PO ONE (10:00)
[2020-06-23] MEDS ORDERED: METHADONE (DETOX) 20 MG, METHADONE (DETOX) 5 MG PO ONE (10:00)
--- NOTE | 2020-06-23 10:19 | PN ---
S CIWA - CIWA Score Nausea/Vomitin-Mild Nausea/No Vomiting Muscle Tremors: 2 Anxiety: 4-Mod. Anxious/Guarded Agitation: 3 Paroxysmal Sweats: 1-Minimal Palms Moist Orientation: 0-Oriented Tacttile Disturbances: 0-None Auditory Disturbances: 0-None Visual Disturbances: 1-Very Mild Sensitivity Headache: 0-None Present CIWA-Ar Total Score: 12 BHS Progress Note (SOAP) Subjective: 49 years old male admitted on 06/22/20 for alcohol and benzo withdrawal sx management treating with valium detox regiment will received methadone 70 mg po daily bmi 19.2 ensure 120 ml po tid with meals mr camp states that he feels tired prefers to stay in bed emotional assurance that 70mg po of methadone today Objective: 06/23/20 10:20 Vital Signs - 24 hr 06/22/20 06/22/20 06/22/20 11:41 13:33 16:34 Temperature 97.9 F 97.9 F 97.3 F L Pulse Rate 63 63 55 L Respiratory 16 16 16 Rate Blood Pressure 137/81 137/81 114/69 O2 Sat by Pulse Oximetry (%) 06/22/20 06/23/20 06/23/20 20:46 06:53 08:58 Temperature 97.7 F 97.5 F L 97.1 F L Pulse Rate 55 L 61 55 L Respiratory 16 18 18 Rate Blood Pressure 116/73 101/60 112/66 O2 Sat by Pulse 98 99 Oximetry (%) 06/23/20 10:21 lab pending Assessment: 06/23/20 10:21 alcohol and benzo withdrawal Plan: valium regiment
[2020-06-23 11:05] LABS: HEMATOCRIT 35.6 % (35.4-49); HEMOGLOBIN 11.5 GM/dL (11.7-16.9); MCH 27.6 pg (25.7-33.7); MCHC 32.2 g/dl (32.0-35.9); MEAN CELL VOLUME 85.7 fl (80-96); MEAN PLT VOLUME 9.2 fl (7.5-11.1); PLATELET COUNT 213 K/MM3 (134-434); RBC 4.15 M/mm3 (4.00-5.60)
[2020-06-23 11:17] LABS: ALBUMIN 3.1 g/dl (3.4-5.0); BILIRUBIN,TOTAL 0.3 mg/dL (0.2-1); BLOOD UREA NITROGEN 20.2 mg/dL (7-18); CREATININE 0.8 mg/dL (0.55-1.3); POTASSIUM 4.4 mmol/L (3.5-5.1); TOT PROT 6.4 g/dl (6.4-8.2)
--- NOTE | 2020-06-23 14:36 | CONSULT ---
[facility] Psychiatric Consult - Data Date of interview: 06/23/20 Admission source: [facility] Identifying data: Readmission to [address] [place] [address] for this 49 y/o male self- referred for detoxification treatment. ELIZABETH issues : alcohol, cocaine, heroin, nicotine. Patient is , a father of three, homeless, unemployed and supported on welfare. Substance Abuse History: Discussed in this session. ELIZABETH profile as follows : Smoking history: Current every day smoker. Have you smoked in the past 12 months: Yes. Aproximately how many cigarettes per day: 20. Cigars Per Day: 0. Hx Chewing Tobacco Use: No. Initiated information on smoking cessation: Yes. 'Breaking Loose' booklet given: 06/23/20. - Substances abused. Alcohol. Substance route: Oral. Frequency: Daily. Amount used: 2 PTS VODKA/ 6PK BEER. Age of first use: 17. Date of last use: 06/22/20. Alprazolam (Xanax). Substance route: Oral. Frequency: Daily. Amount used: 4MG. Age of first use: 34. Date of last use: 06/21/20. Heroin. Substance route: Injection. Frequency: Daily. Amount used: 10BAGS. Age of first use: 24. Date of last use: 06/21/20. Cocaine. Substance route: Injection. Frequency: Daily. Amount used: $60. Age of first use: 47. Date of last use: 06/21/20 Medical History: Medical profile is remarkable for hepatitis C and chronic lumbar pain. Psychiatric History: First seen by a psychiatrist in 2009 (detoxification unit at a facility located in [place], [place]). Patient denies history of psychiatric hospitalizations. Mr Matthews reports that he is no longer in psychiatric OPD treatment ([facility]). Dropped out several months ago. Has not taken psychotropic medications (with the exception of methadone) for past five months (self-report). Patient endorses Bipolar Disorder as his lifetime diagnosis. He used to be maintained on seroquel + depakote (doses not recalled). Patient denies history of suicide attempts. He is currrently on methadone maintenance (70 mg/day) at the [facility] program in the [place]. Physical/Sexual Abuse/Trauma History: Patient denies. Additional Comment: Urine drug screen results: MIHAI-Cocaine, FEN-Fentanyl, MOP- Opiates, OXY-Oxycodone, MTD-Methadone, BZO-Benzodiazepines. Noted. Mental Status Exam - Mental Status Exam Alert and Oriented to: Time, Place, Person Cognitive Function: Good Patient Appearance: Well Groomed Mood: Withdrawn, Hopeful Affect: Appropriate, Normal Range Patient Behavior: Fatigued, Appropriate, Cooperative Speech Pattern: Clear, Appropriate Voice Loudness: Normal Thought Process: Intact, Goal Oriented Thought Disorder: Not Present Hallucinations: Denies Suicidal Ideation: Denies Homicidal Ideation: Denies Insight/Judgement: Poor Sleep: Poorly, Difficulty falling asleep Appetite: Good Gait/Station: Normal Psychiatric Findings - Problem List ([place] 1, 2,3) (1) Alcohol dependence with uncomplicated withdrawal Current Visit: Yes Status: Acute (2) Opioid dependence on agonist therapy Current Visit: Yes Status: Chronic (3) Cocaine dependence Current Visit: Yes Status: Chronic (4) Nicotine dependence Current Visit: Yes Status: Chronic Qualifiers: Nicotine product type: cigarettes Substance use status: uncomplicated Qualified Code(s): F17.210 - Nicotine dependence, cigarettes, uncomplicated (5) Insomnia Current Visit: Yes Status: Chronic (6) Substance induced mood disorder Current Visit: Yes Status: Chronic (7) History of bipolar disorder Current Visit: Yes Status: Chronic (8) Non-compliance Current Visit: Yes Status: Chronic - Initial Treatment Plan Initial Treatment Plan: Psychoeducation. Sleep hygiene. Support. Detoxification in progress. Resumed, at the patient's request : seroquel 50 mg po hs. Side effects/benefits are discussed with the patient. Consent (verbal) granted to MD. Hamilton.
[2020-06-23] MEDS: MELATONIN 5 MG TABLETS PO SCH (22:13)
[2020-06-23] MEDS: QUEtiapine FUMARATE 50 MG TABLET PO SCH (22:13)
[2020-06-23] MEDS: THIAMINE HCL 100 MG TABLET (FP) PO SCH (22:13)
[2020-06-24] MEDS ORDERED: METHADONE HCL 40 MG DISPERSABLE TABLET ONE (04:16)
[2020-06-24] MEDS ORDERED: METHADONE HCL 10 MG TABLET ONE (04:16)
[2020-06-24] MEDS: diazePAM 5 MG TABLET PO SCH ×2 (05:26→17:23)
[2020-06-24] MEDS: METHADONE 40 MG, METHADONE 30 MG PO SCH (05:26)
[2020-06-24] MEDS: CYCLOBENZAPRINE HCL 10 MG TABLET (FP) PO PRN ×3 (05:28→21:27)
[2020-06-24] MEDS ORDERED: METHADONE HCL 10 MG TABLET PO SCH (06:00)
[2020-06-24] MEDS: PRENATAL VITAMINS W/ FOLIC ACID TABLET (FP) PO SCH (09:25)
[2020-06-24] MEDS: NICOTINE POLACRILEX 2 MG GUM BUC PRN ×4 (09:25→21:25)
[2020-06-24] MEDS: NICOTINE 14 MG/24 HOURS TOPICAL PATCH TD SCH (09:25)
[2020-06-24] MEDS ORDERED: METHADONE HCL 10 MG TABLET (FOR DETOX USE ONLY) PO ONE (10:00)
[2020-06-24] MEDS: IBUPROFEN 400 MG TABLET (FP) PO PRN (13:19)
--- NOTE | 2020-06-24 13:29 | PN ---
S CIWA - CIWA Score Nausea/Vomitin-Mild Nausea/No Vomiting Muscle Tremors: 2 Anxiety: 2 Agitation: 0-Normal Activity Paroxysmal Sweats: No Perspiration Orientation: 0-Oriented Tacttile Disturbances: 1-Very Mild Itch/Numbness Auditory Disturbances: 0-None Visual Disturbances: 2-Mild Sensitivity Headache: 0-None Present CIWA-Ar Total Score: 8 BHS Progress Note (SOAP) Subjective: 49 years old male admitted on 06/22/20 for alcohol and benzo withdrawal sx management treating with valium detox regiment feeling better today tolerating food well discussing aftercare with staff mr camp prefers returning to methadone program for behavioral and psychosocial therapies Objective: 06/24/20 13:28 Vital Signs - 24 hr 06/23/20 06/23/20 06/24/20 16:31 20:16 06:10 Temperature 97.3 F L 97.3 F L 97.7 F Pulse Rate 60 93 H 64 Respiratory 18 18 18 Rate Blood Pressure 114/74 108/68 121/74 O2 Sat by Pulse 100 96 97 Oximetry (%) 06/24/20 06/24/20 08:46 12:38 Temperature 97.3 F L 97.1 F L Pulse Rate 67 69 Respiratory 20 20 Rate Blood Pressure 111/68 117/73 O2 Sat by Pulse 99 Oximetry (%) Laboratory Tests 06/22/20 06/23/20 06/23/20 01:16 08:00 08:00 WBC RBC Hgb Hct MCV MCH MCHC RDW Plt Count MPV Sodium Potassium Chloride Carbon Dioxide Anion Gap BUN Creatinine Est GFR (CKD-EPI)AfAm Est GFR (CKD-EPI)NonAf Random Glucose Calcium Total Bilirubin AST ALT Alkaline Phosphatase Total Protein Albumin Syphilis Serology Non-reactive COVID-19 ([facility]) Not detected HIV Ag/Ab Combo Qual Negative 06/23/20 06/23/20 08:00 08:00 WBC 5.0 RBC 4.15 Hgb 11.5 L Hct 35.6 MCV 85.7 MCH 27.6 MCHC 32.2 RDW 14.0 Plt Count 213 MPV 9.2 Sodium 143 Potassium 4.4 Chloride 108 H Carbon Dioxide 31 Anion Gap 3 L BUN 20.2 H Creatinine 0.8 Est GFR (CKD-EPI)AfAm 123.29 Est GFR (CKD-EPI)NonAf 106.38 Random Glucose 102 Calcium 9.0 Total Bilirubin 0.3 AST 21 ALT 27 Alkaline Phosphatase 61 Total Protein 6.4 Albumin 3.1 L Syphilis Serology COVID-19 ([facility]) HIV Ag/Ab Combo Qual lab noted Assessment: 06/24/20 13:29 alcohol and benzo withdrawal Plan: valium regiment
[2020-06-24] MEDS: THIAMINE HCL 100 MG TABLET (FP) PO SCH (21:27)
[2020-06-24] MEDS: QUEtiapine FUMARATE 50 MG TABLET PO SCH (21:27)
[2020-06-24] MEDS: MELATONIN 5 MG TABLETS PO SCH (21:28)
[2020-06-25] MEDS ORDERED: METHADONE HCL 40 MG DISPERSABLE TABLET ONE (03:14)
[2020-06-25] MEDS ORDERED: METHADONE HCL 10 MG TABLET ONE (03:14)
[2020-06-25] MEDS: METHADONE 40 MG, METHADONE 30 MG PO SCH (05:40)
[2020-06-25] MEDS: CYCLOBENZAPRINE HCL 10 MG TABLET (FP) PO PRN (05:44)
[2020-06-25] MEDS ORDERED: diazePAM 5 MG TABLET PO ONE (06:00)
[2020-06-25] MEDS: NICOTINE 14 MG/24 HOURS TOPICAL PATCH TD SCH (09:20)
[2020-06-25] MEDS: PRENATAL VITAMINS W/ FOLIC ACID TABLET (FP) PO SCH (09:20)
[2020-06-25] MEDS: NICOTINE POLACRILEX 2 MG GUM BUC PRN (09:20)
[2020-06-25 09:38] VITALS: PULSE 71
[2020-06-25] MEDS ORDERED: METHADONE (DETOX) 10 MG, METHADONE (DETOX) 5 MG PO ONE (10:00)
--- NOTE | 2020-06-25 13:46 | DS ---
[facility] Detox Discharge Summary Admission Date: 06/22/20 Discharge Date: 06/25/20 - History Present History: Alcohol Dependence, Sedative Dependence Additional Comments: 49 years old male admitted on 06/22/20 for alcohol and benzo withdrawal sx management treated with valium detox regiment seen by psychiatrist lilly enrique mr camp has completed the valium regiment and is tolerated well General Appearance: Yes: No Apparent Distress, Tremorous HEENTM: Yes: Hearing grossly Normal, Normal ENT Inspection, Normocephalic, Normal Voice, Pharynx Normal Respiratory: Yes: Chest Non-Tender, Lungs Clear, No Respiratory Distress, No Accessory Muscle Use Neck: Yes: No masses,lesions,Nodules, Supple Breast: Yes: Breast Exam Deferred Cardiology: Yes: Regular Rhythm, Regular Rate Abdominal: Yes: Normal Bowel Sounds, Non Tender, Flat, Soft Genitourinary: Yes: Within Normal Limits Back: Yes: Normal Inspection Musculoskeletal: Yes: full range of Motion, Pelvis Stable, Back pain Extremities: Yes: Non-Tender, Tremors Neurological: Yes: Fully Oriented, Alert, Normal Mood/Affect, Normal Response Integumentary: Yes: Cold, [place] (legs and arms) Lymphatic: Yes: Within Normal Limits Pertinent Past History: time for discharge 45 minutes transferred order set from detox to rehab - Physical Exam Results Vital Signs: Vital Signs Temperature 97.1 F L 06/25/20 08:51 Pulse Rate 71 06/25/20 08:51 Respiratory Rate 18 06/25/20 08:51 Blood Pressure 123/75 06/25/20 08:51 O2 Sat by Pulse Oximetry (%) 99 06/25/20 05:30 Pertinent Admission Physical Exam Findings: alcohol and benzo withdrawal Vital Signs - 24 hr 06/24/20 06/24/20 06/25/20 16:49 20:32 05:30 Temperature 97.1 F L 97.5 F L 97.5 F L Pulse Rate 60 66 61 Respiratory 18 18 20 Rate Blood Pressure 113/70 110/68 102/62 O2 Sat by Pulse 96 99 Oximetry (%) 06/25/20 06/25/20 08:51 13:11 Temperature 97.1 F L 96.9 F L Pulse Rate 71 71 Respiratory 18 16 Rate Blood Pressure 123/75 115/69 O2 Sat by Pulse 100 Oximetry (%) Laboratory Tests 0806/23/20 06/23/20 01:16 08:00 08:00 WBC RBC Hgb Hct MCV MCH MCHC RDW Plt Count MPV Sodium Potassium Chloride Carbon Dioxide Anion Gap BUN Creatinine Est GFR (CKD-EPI)AfAm Est GFR (CKD-EPI)NonAf Random Glucose Calcium Total Bilirubin AST ALT Alkaline Phosphatase Total Protein Albumin Syphilis Serology Non-reactive COVID-19 ([facility]) Not detected HIV Ag/Ab Combo Qual Negative 06/23/20 06/23/20 08:00 08:00 WBC 5.0 RBC 4.15 Hgb 11.5 L Hct 35.6 MCV 85.7 MCH 27.6 MCHC 32.2 RDW 14.0 Plt Count 213 MPV 9.2 Sodium 143 Potassium 4.4 Chloride 108 H Carbon Dioxide 31 Anion Gap 3 L BUN 20.2 H Creatinine 0.8 Est GFR (CKD-EPI)AfAm 123.29 Est GFR (CKD-EPI)NonAf 106.38 Random Glucose 102 Calcium 9.0 Total Bilirubin 0.3 AST 21 ALT 27 Alkaline Phosphatase 61 Total Protein 6.4 Albumin 3.1 L Syphilis Serology COVID-19 ([facility]) HIV Ag/Ab Combo Qual lab noted - Treatment Hospital Course: Detox Protocol Followed, Detoxed Safely, Responded well, Discharged Condition Good, Rehab Referral Accepted Patient has Accepted [facility] - Medication Discharge Medications: Ambulatory Orders NK [No Known Home Medication] 02/17/18 - Diagnosis (1) Alcohol dependence with uncomplicated withdrawal Current Visit: Yes Status: Acute (2) Methadone maintenance therapy patient Current Visit: Yes Status: Chronic (3) Hepatitis C Current Visit: Yes Status: Chronic Qualifiers: Viral hepatitis chronicity: chronic Hepatic coma status: without hepatic coma Qualified Code(s): B18.2 - Chronic viral hepatitis C (4) Nicotine dependence Current Visit: Yes Status: Acute Qualifiers: Nicotine product type: cigarettes Substance use status: in withdrawal Qu alified Code(s): F17.213 - Nicotine dependence, cigarettes, with withdrawal (5) Uncomplicated sedative, hypnotic or anxiolytic withdrawal Current Visit: Yes Status: Acute (6) Weight loss Current Visit: Yes Status: Chronic (7) Substance induced mood disorder Current Visit: Yes Status: Suspected - AMA Did Patient Leave Against Medical Advice: No CIWA Score - CIWA Score Nausea/Vomitin-No Nausea/No Vomiting Muscle Tremors: 1-None Visible, but [place] Anxiety: 2 Agitation: 0-Normal Activity Paroxysmal Sweats: No Perspiration Orientation: 0-Oriented Tacttile Disturbances: 0-None Auditory Disturbances: 0-None Visual Disturbances: 0-None Headache: 0-None Present CIWA-Ar Total Score: 3
[2020-06-25 13:53] VITALS: BP 115/69; TEMP 96.9
[2020-06-26] MEDS ORDERED: METHADONE HCL 10 MG TABLET (FOR DETOX USE ONLY) PO ONE (10:00)
[2020-06-27] MEDS ORDERED: METHADONE HCL 5 MG TABLET (FOR DETOX USE ONLY) PO ONE (06:00)
== END 2020-06-25 13:51 | disposition home or self-care (01) | DRG 773 ==
LOC: YASAS 10:36 → Y3N 13:12
PROVIDERS: ADMIT Allergy & Immunology; ATTEND Allergy & Immunology
PROC: HZ2ZZZZ Detoxification Services for Substance Abuse Treatment (ICD-10-PCS; principal; 2020-06-22)
DX: F10.230 Alcohol dependence with withdrawal, uncomplicated (principal); F11.20 Opioid dependence, uncomplicated; F13.230 Sedative, hypnotic or anxiolytic dependence with withdrawal, uncomplicated; F14.20 Cocaine dependence, uncomplicated; F17.213 Nicotine dependence, cigarettes, with withdrawal; F19.24 Other psychoactive substance dependence with psychoactive substance-induced mood disorder; B18.2 Chronic viral hepatitis C; R63.4 Abnormal weight loss; G47.00 Insomnia, unspecified; M54.42 Lumbago with sciatica, left side; M54.41 Lumbago with sciatica, right side; Z91.19 Patient's noncompliance with other medical treatment and regimen; Z91.013 Allergy to seafood
CPT/HCPCS: 36415; 80053; 85027; 86707; 86780; 87350; 87389; 93005; 93010; U0003

== ENCOUNTER 2020-06-25 13:16 | Inpatient (IN) | payer OTHER ==
--- NOTE | 2020-06-25 13:47 | HP ---
[facility] Rehab Assess/Revision - Admission History Admitted to Rehab from: [facility] Date of Admission to Rehab: 06/25/20 - Findings Detox History & Physical reviewed: Yes Concur with findings: Yes Comments/Additional Findings: trasnferred from detox to rehab admission as per protocol Inpatient Rehab Admission - Rehab Decision to Admit Inpatient rehab admission?: Yes - Initial Determination Are CD services needed?: Yes Free of communicable disease: Yes Not in need of hospitalization: Yes - Rehab Admission Criteria Previous failed treatment: Yes Poor recovery environment: Yes Comorbidities: Yes Lacks judgement: Yes Patient is meeting Inpatient Rehab admission criteria:: Yes
[2020-06-25] MEDS ORDERED: MAGNESIUM CITRATE 300 ML BOTTLE PO PRN (13:57)
[2020-06-25] MEDS ORDERED: MAGNESIUM HYDROX 2400MG/30ML ORAL SUSPENSION 30 ML CUP PO PRN (13:57)
[2020-06-25] MEDS ORDERED: MAG HYDROX/AL HYDROX/SIMETH 30 ML UNIT-DOSE CUP PO PRN (13:57)
[2020-06-25] MEDS ORDERED: ACETAMINOPHEN 325 MG TABLET (FP) PO PRN (13:57)
[2020-06-25] MEDS ORDERED: IBUPROFEN 400 MG TABLET (FP) PO PRN (13:57)
[2020-06-25] MEDS ORDERED: LOPERAMIDE HCL 2 MG CAPSULE PO PRN (13:57)
[2020-06-25] MEDS ORDERED: guaiFENesin 200 MG/10 ML 10 ML UNIT-DOSE CUPS PO PRN (13:57)
[2020-06-25] MEDS ORDERED: P-EPHED 60MG/TRIPROLIDI 2.5MG TABLET PO PRN (13:57)
[2020-06-25] MEDS: NICOTINE POLACRILEX 2 MG GUM BUC PRN (18:03)
[2020-06-25] MEDS ORDERED: hydrOXYzine PAMOATE 25 MG CAPSULE (FP) PO ONE (21:13)
--- NOTE | 2020-06-25 21:16 | PN ---
S Progress Note Note: Patient reports feeling anxious Vital Signs Temperature 98.0 F 06/25/20 13:59 Pulse Rate 64 06/25/20 13:59 Respiratory Rate 18 06/25/20 13:59 Blood Pressure 118/67 06/25/20 13:59 O2 Sat by Pulse Oximetry (%) 97 06/25/20 20:00 Action: Hydroxyzine Pamoate (Vistaril) 25mg capsule oral ordered
[2020-06-25] MEDS: MELATONIN 5 MG TABLETS PO SCH (21:51)
[2020-06-25] MEDS: THIAMINE HCL 100 MG TABLET (FP) PO SCH (21:52)
[2020-06-25] MEDS ORDERED: CYCLOBENZAPRINE HCL 10 MG TABLET (FP) PO ONE (22:02)
[2020-06-26] MEDS ORDERED: METHADONE HCL 10 MG TABLET ONE (04:28)
[2020-06-26] MEDS ORDERED: METHADONE HCL 40 MG DISPERSABLE TABLET ONE (04:29)
[2020-06-26] MEDS ORDERED: METHADONE HCL 10 MG TABLET PO SCH (06:00)
[2020-06-26] MEDS: METHADONE 40 MG, METHADONE 30 MG PO SCH (06:31)
--- NOTE | 2020-06-26 09:31 | CONSULT ---
[facility] Psychiatric Consult - Data Date of interview: 06/26/20 Admission source: [facility] Identifying data: Patient is a 49 year old male, father of three, unemployed, homeless, and is not currently receiving financial assistance. This is one of multiple admissions for patient. Patient admitted to for alcohol, cocaine, opiate, and benzodiazepine dependence. Substance Abuse History: Substances abused. Alcohol. Substance route: Oral. Frequency: Daily. Amount used: 2 PTS VODKA/ 6PK BEER. Age of first use: 17. Date of last use: 06/22/20. Alprazolam (Xanax). Substance route: Oral. Frequency: Daily. Amount used: 4MG. Age of first use: 34. Date of last use: 06/21/20. Heroin. Substance route: Injection. Frequency: Daily. Amount used: 10BAGS. Age of first use: 24. Date of last use: 06/21/20. Cocaine. Substance route: Injection. Frequency: Daily. Amount used: $60. Age of first use: 47. Date of last use: 06/21/20 Medical History: Medical profile is remarkable for hepatitis C and chronic lumbar pain. Psychiatric History: Patient denies history of psychiatric hospitalizations and suicide attempt. Mr. Matthews first psychiatric contact was in 2009 at a detox facilty in [place]. He used to receive psychiatric care at [facility]. States that he was diagnosed with bipolar disorder at [facility] several months ago and was prescribed depakote + Seroquel. Patient requesting to continue seroquel. Patient seen by Dr. Garcia while in detox and was prescribed seroquel 50mg HS. Mr. Matthews is currrently on methadone maintenance (70 mg/day) at the [facility] MMTP program in the [place]. At present patient denies suicidal/ homicidal ideation. Physical/Sexual Abuse/Trauma History: denies. Mental Status Exam - Mental Status Exam Alert and Oriented to: Time, Place, Person Cognitive Function: Good Patient Appearance: Well Groomed Mood: Withdrawn Affect: Mood Congruent Patient Behavior: Cooperative Speech Pattern: Appropriate Voice Loudness: Mildly Soft/Quiet Thought Process: Goal Oriented Thought Disorder: Not Present Hallucinations: Denies Suicidal Ideation: Denies Homicidal Ideation: Denies Insight/Judgement: Poor Sleep: Poorly Appetite: Fair Muscle strength/Tone: Normal Gait/Station: Normal Psychiatric Findings - Problem List ([place] 1, 2,3) (1) Opioid dependence Current Visit: Yes Status: Acute (2) Nicotine dependence Current Visit: Yes Status: Acute (3) Cocaine dependence Current Visit: Yes Status: Chronic (4) Substance induced mood disorder Current Visit: Yes Status: Acute (5) History of bipolar disorder Current Visit: Yes Status: Chronic - Initial Treatment Plan Initial Treatment Plan: Psychoeducation provided. Detoxification in progress. Will order Seroquel 50mg HS + Vistaril 25mg Q6H. Benefits and side effects discussed. Verbal consent given.
[2020-06-26] MEDS: PRENATAL VITAMINS W/ FOLIC ACID TABLET (FP) PO SCH (10:59)
[2020-06-26] MEDS: NICOTINE 7 MG/24 HOURS TOPICAL PATCH TD SCH (10:59)
[2020-06-26] MEDS: NICOTINE POLACRILEX 2 MG GUM BUC PRN ×3 (11:00→17:49)
[2020-06-26] MEDS: hydrOXYzine PAMOATE 25 MG CAPSULE (FP) PO PRN ×2 (11:02→17:35)
[2020-06-26] MEDS: CYCLOBENZAPRINE HCL 10 MG TABLET (FP) PO PRN ×2 (17:47→21:58)
[2020-06-26] MEDS: QUEtiapine FUMARATE 50 MG TABLET PO SCH (21:58)
[2020-06-26] MEDS: MELATONIN 5 MG TABLETS PO SCH (21:59)
[2020-06-26] MEDS: THIAMINE HCL 100 MG TABLET (FP) PO SCH (21:59)
[2020-06-27] MEDS ORDERED: METHADONE HCL 10 MG TABLET ONE (04:23)
[2020-06-27] MEDS ORDERED: METHADONE HCL 40 MG DISPERSABLE TABLET ONE (04:24)
[2020-06-27] MEDS: METHADONE 40 MG, METHADONE 30 MG PO SCH (06:39)
[2020-06-27] MEDS: CYCLOBENZAPRINE HCL 10 MG TABLET (FP) PO PRN ×3 (08:00→23:05)
[2020-06-27] MEDS: NICOTINE 7 MG/24 HOURS TOPICAL PATCH TD SCH (10:49)
[2020-06-27] MEDS: PRENATAL VITAMINS W/ FOLIC ACID TABLET (FP) PO SCH (10:49)
[2020-06-27] MEDS: hydrOXYzine PAMOATE 25 MG CAPSULE (FP) PO PRN (10:52)
[2020-06-27] MEDS: NICOTINE POLACRILEX 2 MG GUM BUC PRN (14:20)
[2020-06-27] MEDS: THIAMINE HCL 100 MG TABLET (FP) PO SCH (22:56)
[2020-06-27] MEDS: QUEtiapine FUMARATE 50 MG TABLET PO SCH (22:56)
[2020-06-27] MEDS: MELATONIN 5 MG TABLETS PO SCH (22:58)
[2020-06-28] MEDS ORDERED: METHADONE HCL 40 MG DISPERSABLE TABLET ONE (04:00)
[2020-06-28] MEDS ORDERED: METHADONE HCL 10 MG TABLET ONE (04:00)
[2020-06-28] MEDS: METHADONE 40 MG, METHADONE 30 MG PO SCH (06:52)
[2020-06-28] MEDS: CYCLOBENZAPRINE HCL 10 MG TABLET (FP) PO PRN ×2 (06:53→17:39)
[2020-06-28] MEDS: NICOTINE POLACRILEX 2 MG GUM BUC PRN ×3 (06:53→21:29)
[2020-06-28] MEDS: PRENATAL VITAMINS W/ FOLIC ACID TABLET (FP) PO SCH (10:40)
[2020-06-28] MEDS: hydrOXYzine PAMOATE 25 MG CAPSULE (FP) PO PRN ×2 (10:40→21:29)
[2020-06-28] MEDS: NICOTINE 7 MG/24 HOURS TOPICAL PATCH TD SCH (10:41)
[2020-06-28] MEDS: THIAMINE HCL 100 MG TABLET (FP) PO SCH (21:29)
[2020-06-28] MEDS: MELATONIN 5 MG TABLETS PO SCH (21:29)
[2020-06-28] MEDS: QUEtiapine FUMARATE 50 MG TABLET PO SCH (21:29)
[2020-06-29] MEDS ORDERED: METHADONE HCL 10 MG TABLET ONE (04:04)
[2020-06-29] MEDS ORDERED: METHADONE HCL 40 MG DISPERSABLE TABLET ONE (04:04)
[2020-06-29] MEDS: METHADONE 40 MG, METHADONE 30 MG PO SCH (06:58)
[2020-06-29] MEDS: hydrOXYzine PAMOATE 25 MG CAPSULE (FP) PO PRN ×2 (06:59→21:44)
[2020-06-29] MEDS: PRENATAL VITAMINS W/ FOLIC ACID TABLET (FP) PO SCH (10:20)
[2020-06-29] MEDS: NICOTINE POLACRILEX 2 MG GUM BUC PRN ×2 (10:20→21:46)
[2020-06-29] MEDS: CYCLOBENZAPRINE HCL 10 MG TABLET (FP) PO PRN ×2 (10:20→21:44)
[2020-06-29] MEDS: NICOTINE 7 MG/24 HOURS TOPICAL PATCH TD SCH (10:20)
[2020-06-29] MEDS: THIAMINE HCL 100 MG TABLET (FP) PO SCH (21:44)
[2020-06-29] MEDS: MELATONIN 5 MG TABLETS PO SCH (21:44)
[2020-06-29] MEDS: QUEtiapine FUMARATE 50 MG TABLET PO SCH (21:44)
[2020-06-30] MEDS ORDERED: METHADONE HCL 10 MG TABLET ONE (04:57)
[2020-06-30] MEDS ORDERED: METHADONE HCL 40 MG DISPERSABLE TABLET ONE (04:57)
[2020-06-30] MEDS: METHADONE 40 MG, METHADONE 30 MG PO SCH (07:20)
[2020-06-30] MEDS: CYCLOBENZAPRINE HCL 10 MG TABLET (FP) PO PRN ×3 (08:45→22:02)
[2020-06-30] MEDS: hydrOXYzine PAMOATE 25 MG CAPSULE (FP) PO PRN ×2 (09:42→17:58)
[2020-06-30] MEDS: PRENATAL VITAMINS W/ FOLIC ACID TABLET (FP) PO SCH (09:42)
[2020-06-30] MEDS: NICOTINE 7 MG/24 HOURS TOPICAL PATCH TD SCH (09:43)
[2020-06-30] MEDS: NICOTINE POLACRILEX 2 MG GUM BUC PRN ×2 (09:43→17:59)
[2020-06-30] MEDS: MELATONIN 5 MG TABLETS PO SCH (22:01)
[2020-06-30] MEDS: THIAMINE HCL 100 MG TABLET (FP) PO SCH (22:01)
[2020-06-30] MEDS: QUEtiapine FUMARATE 50 MG TABLET PO SCH (22:04)
[2020-07-01] MEDS ORDERED: METHADONE HCL 40 MG DISPERSABLE TABLET ONE (04:02)
[2020-07-01] MEDS ORDERED: METHADONE HCL 10 MG TABLET ONE (04:02)
[2020-07-01] MEDS: METHADONE 40 MG, METHADONE 30 MG PO SCH (06:28)
[2020-07-01] MEDS: CYCLOBENZAPRINE HCL 10 MG TABLET (FP) PO PRN ×2 (07:32→21:57)
[2020-07-01] MEDS: NICOTINE POLACRILEX 2 MG GUM BUC PRN (10:47)
[2020-07-01] MEDS: PRENATAL VITAMINS W/ FOLIC ACID TABLET (FP) PO SCH (10:47)
[2020-07-01] MEDS: hydrOXYzine PAMOATE 25 MG CAPSULE (FP) PO PRN (10:47)
[2020-07-01] MEDS: NICOTINE 7 MG/24 HOURS TOPICAL PATCH TD SCH (10:48)
[2020-07-01] MEDS: MELATONIN 5 MG TABLETS PO SCH (21:56)
[2020-07-01] MEDS: THIAMINE HCL 100 MG TABLET (FP) PO SCH (21:56)
[2020-07-01] MEDS: QUEtiapine FUMARATE 50 MG TABLET PO SCH (21:56)
[2020-07-02] MEDS ORDERED: METHADONE HCL 10 MG TABLET PO SCH (06:00)
[2020-07-02] MEDS ORDERED: METHADONE HCL 40 MG DISPERSABLE TABLET ONE (06:19)
[2020-07-02] MEDS ORDERED: METHADONE HCL 10 MG TABLET ONE (06:19)
[2020-07-02] MEDS: CYCLOBENZAPRINE HCL 10 MG TABLET (FP) PO PRN ×2 (06:20→21:41)
[2020-07-02] MEDS: METHADONE 40 MG, METHADONE 30 MG PO SCH (06:20)
[2020-07-02] MEDS: NICOTINE POLACRILEX 2 MG GUM BUC PRN ×2 (06:22→09:24)
[2020-07-02] MEDS: PRENATAL VITAMINS W/ FOLIC ACID TABLET (FP) PO SCH (09:23)
[2020-07-02] MEDS: hydrOXYzine PAMOATE 25 MG CAPSULE (FP) PO PRN ×2 (09:23→21:40)
[2020-07-02] MEDS: QUEtiapine FUMARATE 50 MG TABLET PO SCH (21:40)
[2020-07-02] MEDS: MELATONIN 5 MG TABLETS PO SCH (21:41)
[2020-07-02] MEDS: THIAMINE HCL 100 MG TABLET (FP) PO SCH (21:54)
[2020-07-03] MEDS ORDERED: METHADONE HCL 10 MG TABLET ONE (03:45)
[2020-07-03] MEDS ORDERED: METHADONE HCL 40 MG DISPERSABLE TABLET ONE (03:45)
[2020-07-03] MEDS: CYCLOBENZAPRINE HCL 10 MG TABLET (FP) PO PRN ×2 (06:24→21:26)
[2020-07-03] MEDS: METHADONE 40 MG, METHADONE 30 MG PO SCH (06:24)
[2020-07-03] MEDS: NICOTINE POLACRILEX 2 MG GUM BUC PRN ×2 (06:26→10:55)
[2020-07-03] MEDS: PRENATAL VITAMINS W/ FOLIC ACID TABLET (FP) PO SCH (10:55)
[2020-07-03] MEDS: hydrOXYzine PAMOATE 25 MG CAPSULE (FP) PO PRN ×2 (10:55→21:26)
[2020-07-03] MEDS: QUEtiapine FUMARATE 50 MG TABLET PO SCH (21:26)
[2020-07-03] MEDS: THIAMINE HCL 100 MG TABLET (FP) PO SCH (21:26)
[2020-07-03] MEDS: MELATONIN 5 MG TABLETS PO SCH (21:27)
[2020-07-04] MEDS ORDERED: METHADONE HCL 40 MG DISPERSABLE TABLET ONE (03:18)
[2020-07-04] MEDS ORDERED: METHADONE HCL 10 MG TABLET ONE (03:18)
[2020-07-04] MEDS: CYCLOBENZAPRINE HCL 10 MG TABLET (FP) PO PRN ×2 (06:45→21:44)
[2020-07-04] MEDS: METHADONE 40 MG, METHADONE 30 MG PO SCH (06:45)
[2020-07-04] MEDS: PRENATAL VITAMINS W/ FOLIC ACID TABLET (FP) PO SCH (09:14)
[2020-07-04] MEDS: hydrOXYzine PAMOATE 25 MG CAPSULE (FP) PO PRN ×2 (09:15→21:44)
[2020-07-04] MEDS: NICOTINE POLACRILEX 2 MG GUM BUC PRN (09:15)
[2020-07-04] MEDS: THIAMINE HCL 100 MG TABLET (FP) PO SCH (21:44)
[2020-07-04] MEDS: QUEtiapine FUMARATE 50 MG TABLET PO SCH (21:44)
[2020-07-04] MEDS: MELATONIN 5 MG TABLETS PO SCH (21:44)
[2020-07-05] MEDS ORDERED: METHADONE HCL 10 MG TABLET ONE (05:11)
[2020-07-05] MEDS ORDERED: METHADONE HCL 40 MG DISPERSABLE TABLET ONE (05:12)
[2020-07-05] MEDS: METHADONE 40 MG, METHADONE 30 MG PO SCH (06:04)
[2020-07-05] MEDS: CYCLOBENZAPRINE HCL 10 MG TABLET (FP) PO PRN ×2 (06:07→21:30)
[2020-07-05] MEDS: NICOTINE POLACRILEX 2 MG GUM BUC PRN ×4 (06:07→21:31)
[2020-07-05] MEDS: PRENATAL VITAMINS W/ FOLIC ACID TABLET (FP) PO SCH (09:58)
[2020-07-05] MEDS: hydrOXYzine PAMOATE 25 MG CAPSULE (FP) PO PRN (10:00)
[2020-07-05] MEDS: MELATONIN 5 MG TABLETS PO SCH (21:31)
[2020-07-05] MEDS: QUEtiapine FUMARATE 50 MG TABLET PO SCH (21:31)
[2020-07-05] MEDS: THIAMINE HCL 100 MG TABLET (FP) PO SCH (21:31)
[2020-07-06] MEDS ORDERED: METHADONE HCL 40 MG DISPERSABLE TABLET ONE (05:41)
[2020-07-06] MEDS ORDERED: METHADONE HCL 10 MG TABLET ONE (05:41)
[2020-07-06] MEDS: METHADONE 40 MG, METHADONE 30 MG PO SCH (06:44)
[2020-07-06] MEDS: CYCLOBENZAPRINE HCL 10 MG TABLET (FP) PO PRN (06:44)
[2020-07-06] MEDS: NICOTINE POLACRILEX 2 MG GUM BUC PRN ×3 (06:45→21:53)
[2020-07-06] MEDS: PRENATAL VITAMINS W/ FOLIC ACID TABLET (FP) PO SCH (09:54)
[2020-07-06] MEDS: hydrOXYzine PAMOATE 25 MG CAPSULE (FP) PO PRN (21:52)
[2020-07-06] MEDS: THIAMINE HCL 100 MG TABLET (FP) PO SCH (21:52)
[2020-07-06] MEDS: QUEtiapine FUMARATE 50 MG TABLET PO SCH (21:52)
[2020-07-06] MEDS: MELATONIN 5 MG TABLETS PO SCH (21:53)
[2020-07-07] MEDS ORDERED: METHADONE HCL 10 MG TABLET ONE (03:12)
[2020-07-07] MEDS ORDERED: METHADONE HCL 40 MG DISPERSABLE TABLET ONE (03:13)
[2020-07-07] MEDS: METHADONE 40 MG, METHADONE 30 MG PO SCH (06:39)
[2020-07-07] MEDS: CYCLOBENZAPRINE HCL 10 MG TABLET (FP) PO PRN ×2 (06:39→21:30)
[2020-07-07] MEDS: NICOTINE POLACRILEX 2 MG GUM BUC PRN ×3 (06:40→21:31)
[2020-07-07] MEDS: PRENATAL VITAMINS W/ FOLIC ACID TABLET (FP) PO SCH (10:14)
[2020-07-07] MEDS: MELATONIN 5 MG TABLETS PO SCH (21:30)
[2020-07-07] MEDS: QUEtiapine FUMARATE 50 MG TABLET PO SCH (21:30)
[2020-07-07] MEDS: THIAMINE HCL 100 MG TABLET (FP) PO SCH (21:30)
[2020-07-07] MEDS: hydrOXYzine PAMOATE 25 MG CAPSULE (FP) PO PRN (21:30)
[2020-07-08] MEDS ORDERED: METHADONE HCL 10 MG TABLET ONE (03:31)
[2020-07-08] MEDS ORDERED: METHADONE HCL 40 MG DISPERSABLE TABLET ONE (03:31)
[2020-07-08] MEDS: CYCLOBENZAPRINE HCL 10 MG TABLET (FP) PO PRN ×2 (06:27→21:21)
[2020-07-08] MEDS: NICOTINE POLACRILEX 2 MG GUM BUC PRN ×3 (06:29→21:23)
[2020-07-08] MEDS: METHADONE 40 MG, METHADONE 30 MG PO SCH (06:29)
[2020-07-08] MEDS: PRENATAL VITAMINS W/ FOLIC ACID TABLET (FP) PO SCH (09:20)
[2020-07-08] MEDS: QUEtiapine FUMARATE 50 MG TABLET PO SCH (21:21)
[2020-07-08] MEDS: THIAMINE HCL 100 MG TABLET (FP) PO SCH (21:21)
[2020-07-08] MEDS: MELATONIN 5 MG TABLETS PO SCH (21:22)
[2020-07-09] MEDS: CYCLOBENZAPRINE HCL 10 MG TABLET (FP) PO PRN ×2 (06:14→21:22)
[2020-07-09] MEDS ORDERED: METHADONE HCL 10 MG TABLET ONE (06:15)
[2020-07-09] MEDS ORDERED: METHADONE HCL 40 MG DISPERSABLE TABLET ONE (06:16)
[2020-07-09] MEDS: METHADONE 40 MG, METHADONE 30 MG PO SCH (06:17)
[2020-07-09] MEDS: PRENATAL VITAMINS W/ FOLIC ACID TABLET (FP) PO SCH (09:06)
[2020-07-09] MEDS: NICOTINE POLACRILEX 2 MG GUM BUC PRN (09:07)
--- NOTE | 2020-07-09 10:53 | PN ---
[facility] Progress Note Note: Patient is scheduled for discharge tomorrow. Script for 30 days supply of Seroquel 50 mg/hs will be electronically transmitted to [facility], [address] [place] [id number]
[2020-07-09] MEDS: THIAMINE HCL 100 MG TABLET (FP) PO SCH (21:22)
[2020-07-09] MEDS: QUEtiapine FUMARATE 50 MG TABLET PO SCH (21:23)
[2020-07-09] MEDS: hydrOXYzine PAMOATE 25 MG CAPSULE (FP) PO PRN (21:23)
[2020-07-09] MEDS: MELATONIN 5 MG TABLETS PO SCH (21:23)
[2020-07-10] MEDS ORDERED: METHADONE HCL 10 MG TABLET ONE (06:03)
[2020-07-10] MEDS ORDERED: METHADONE HCL 40 MG DISPERSABLE TABLET ONE (06:03)
[2020-07-10] MEDS: CYCLOBENZAPRINE HCL 10 MG TABLET (FP) PO PRN (06:32)
[2020-07-10] MEDS: METHADONE 40 MG, METHADONE 30 MG PO SCH (06:32)
[2020-07-10 08:54] VITALS: BP 149/86; PULSE 53; TEMP 97.1
--- NOTE | 2020-07-10 09:09 | DS ---
[facility] Rehab Discharge Summary - [facility] Rehab Discharge Summary Admission Date: 06/25/20 Discharge Date: 07/10/20 - History Present History: Alcohol dependence, Cocaine dependence, MMTP, Opioid dependence Pertinent Past History: Hep C Chronic Back Pain - Discharge Physical Exam Vital Signs: Vital Signs Temperature 97.1 F L 07/10/20 08:31 Pulse Rate 53 L 07/10/20 08:31 Respiratory Rate 16 07/10/20 08:31 Blood Pressure 149/86 07/10/20 08:31 O2 Sat by Pulse Oximetry (%) 96 07/10/20 06:28 Alert o x 3 nad, no resp difficulty oob ambulating with steady gait Active FROM, all limbs Pertinent Admission Physical Exam Findings: Unremarkable - Treatment Discharge Condition: Discharge condition good Hospital Course: Cd aftercare accepted to [facility] - Medication Discharge Medications: Ambulatory Orders Quetiapine Fumarate [Seroquel -] 50 mg PO HS #30 tablet 07/09/20 - Medication-Assisted Treatment (MAT) Medication-Assisted Treatment (MAT): No - Discharge Instructions Diet, activity, other medical instructions: Diet:Regular Activity: oob ad amilcar Other medical instructions:follow up with CD aftercare at [facility] as scheduled. - Diagnosis (1) Cocaine dependence Current Visit: Yes Status: Acute (2) Nicotine dependence Current Visit: Yes Status: Acute (3) Nicotine dependence Current Visit: No Status: Acute Qualifiers: Nicotine product type: cigarettes Substance use status: in withdrawal Qu alified Code(s): F17.213 - Nicotine dependence, cigarettes, with withdrawal (4) Hepatitis C Current Visit: No Status: Chronic Qualifiers: Viral hepatitis chronicity: chronic Hepatic coma status: without hepatic coma Qualified Code(s): B18.2 - Chronic viral hepatitis C (5) Low back pain Current Visit: No Status: Chronic Qualifiers: Chronicity: chronic Back pain laterality: bilateral Sciatica laterality: bilateral sciatica - Follow-up Referral Minutes to complete discharge: 20 - AMA Did Patient Leave Against Medical Advice: No
[2020-07-10] MEDS: PRENATAL VITAMINS W/ FOLIC ACID TABLET (FP) PO SCH (09:30)
== END 2020-07-10 09:58 | disposition home or self-care (01) | DRG 772 ==
LOC: YASAS 13:16 → Y5N 13:19
PROVIDERS: ADMIT Allergy & Immunology; ATTEND Allergy & Immunology
PROC: HZ42ZZZ Group Counseling for Substance Abuse Treatment, Cognitive-Behavioral (ICD-10-PCS; principal; 2020-06-25)
DX: F10.20 Alcohol dependence, uncomplicated (principal); F11.20 Opioid dependence, uncomplicated; F14.20 Cocaine dependence, uncomplicated; F13.20 Sedative, hypnotic or anxiolytic dependence, uncomplicated; F17.210 Nicotine dependence, cigarettes, uncomplicated; F19.24 Other psychoactive substance dependence with psychoactive substance-induced mood disorder; F31.9 Bipolar disorder, unspecified; B18.2 Chronic viral hepatitis C; M54.41 Lumbago with sciatica, right side; M54.42 Lumbago with sciatica, left side; G89.29 Other chronic pain; Z56.0 Unemployment, unspecified; Z59.0 Homelessness; Z91.013 Allergy to seafood

== ENCOUNTER 2021-04-03 14:32 | Inpatient (IN) | payer OTHER ==
[2021-04-03 18:26] VITALS: BMI 21.2
[2021-04-03] MEDS ORDERED: DICYCLOMINE HCL 10 MG CAPSULE PO PRN (20:12)
[2021-04-03] MEDS ORDERED: BISMUTH SUBSALICYLATE 524 MG/30 ML PO PRN (20:12)
[2021-04-03] MEDS ORDERED: METHOCARBAMOL 500 MG TABLET PO PRN (20:12)
[2021-04-03] MEDS ORDERED: NALOXONE (NARCAN) HCL 4 MG/0.1 ML SPRAY NS PRN (20:12)
[2021-04-03] MEDS ORDERED: ONDANSETRON *ODT* 4 MG TABLET SL PRN (20:12)
[2021-04-03] MEDS ORDERED: MENTHOL/PHENOL 1 EACH UD MM PRN (20:12)
[2021-04-03] MEDS ORDERED: ACETAMINOPHEN 325 MG TABLET (FP) PO PRN ×2 (20:12)
[2021-04-03] MEDS ORDERED: traZODone HCL 50 MG TABLET (FP) PO PRN (20:12)
[2021-04-03] MEDS ORDERED: MAGNESIUM HYDROX 2400MG/30ML ORAL SUSPENSION 30 ML CUP PO PRN (20:12)
[2021-04-03] MEDS ORDERED: IBUPROFEN 400 MG TABLET (FP) PO PRN (20:12)
[2021-04-03] MEDS ORDERED: MAG HYDROX/AL HYDROX/SIMETH 30 ML UNIT-DOSE CUP PO PRN (20:12)
[2021-04-03] MEDS ORDERED: MAGNESIUM CITRATE 300 ML BOTTLE PO PRN (20:12)
[2021-04-03] MEDS ORDERED: diazePAM 5 MG TABLET PO ONE (20:22)
[2021-04-03] MEDS: MELATONIN 5 MG TABLETS PO SCH (21:58)
[2021-04-03] MEDS: hydrOXYzine PAMOATE 25 MG CAPSULE (FP) PO SCH (21:58)
[2021-04-03] MEDS: THIAMINE HCL 100 MG TABLET (FP) PO SCH (21:58)
[2021-04-03] MEDS: diazePAM 5 MG TABLET PO SCH (22:03)
[2021-04-04] MEDS: hydrOXYzine PAMOATE 25 MG CAPSULE (FP) PO SCH ×5 (06:08→22:55)
[2021-04-04] MEDS: diazePAM 5 MG TABLET PO SCH ×4 (06:08→22:55)
[2021-04-04] MEDS: METHADONE HCL 40 MG DISPERSABLE TABLET PO SCH (10:21)
[2021-04-04] MEDS: PRENATAL VITAMINS W/ FOLIC ACID TABLET (FP) PO SCH (10:22)
[2021-04-04] MEDS: NICOTINE POLACRILEX 2 MG GUM BUC PRN ×2 (10:22→14:45)
[2021-04-04] MEDS: NICOTINE 21 MG/24 HOURS TOPICAL PATCH TD SCH (10:22)
[2021-04-04] MEDS: diazePAM 5 MG TABLET PO PRN (14:43)
[2021-04-04] MEDS: MELATONIN 5 MG TABLETS PO SCH (22:54)
[2021-04-04] MEDS: THIAMINE HCL 100 MG TABLET (FP) PO SCH (22:54)
[2021-04-05] MEDS: diazePAM 5 MG TABLET PO SCH ×3 (05:58→22:31)
[2021-04-05] MEDS: METHADONE HCL 40 MG DISPERSABLE TABLET PO SCH (05:59)
[2021-04-05] MEDS: hydrOXYzine PAMOATE 25 MG CAPSULE (FP) PO SCH ×5 (05:59→22:32)
[2021-04-05] MEDS: PRENATAL VITAMINS W/ FOLIC ACID TABLET (FP) PO SCH (10:10)
[2021-04-05] MEDS: diazePAM 5 MG TABLET PO PRN ×2 (10:10→17:52)
[2021-04-05] MEDS: NICOTINE 21 MG/24 HOURS TOPICAL PATCH TD SCH (10:10)
[2021-04-05] MEDS: NICOTINE POLACRILEX 2 MG GUM BUC PRN ×2 (10:11→14:29)
[2021-04-05 11:08] LABS: BASO % 0.3 % (0-2.0); EOS % 1.2 % (0-4.5); HEMATOCRIT 37.3 % (35.4-49); HEMOGLOBIN 12.6 GM/dL (11.7-16.9); LYMPH % 56.1 % (8-40); MCH 29.2 pg (25.7-33.7); MCHC 33.9 g/dl (32.0-35.9); MEAN CELL VOLUME 86.1 fl (80-96); MEAN PLT VOLUME 9.3 fl (7.5-11.1); MONO % 9.3 % (3.8-10.2); NEUT % 33.1 % (42.8-82.8); PLATELET COUNT 258 K/MM3 (134-434); RBC 4.33 M/mm3 (4.00-5.60); RDW 13.8 % (11.9-15.9)
[2021-04-05 11:14] LABS: CALCIUM 8.8 mg/dL (8.5-10.1)
[2021-04-05 11:15] LABS: ALBUMIN 3.4 g/dl (3.4-5.0); BLOOD UREA NITROGEN 14.8 mg/dL (7-18)
[2021-04-05 11:17] LABS: BILIRUBIN,TOTAL 0.2 mg/dL (0.2-1); TOT PROT 7.5 g/dl (6.4-8.2)
[2021-04-05 11:18] LABS: CREATININE 0.9 mg/dL (0.55-1.3)
[2021-04-05] MEDS: CYCLOBENZAPRINE HCL 10 MG TABLET (FP) PO PRN (14:44)
[2021-04-05] MEDS: MELATONIN 5 MG TABLETS PO SCH (22:29)
[2021-04-05] MEDS: THIAMINE HCL 100 MG TABLET (FP) PO SCH (22:32)
[2021-04-06] MEDS: diazePAM 5 MG TABLET PO SCH ×2 (06:12→17:57)
[2021-04-06] MEDS: METHADONE HCL 40 MG DISPERSABLE TABLET PO SCH (06:12)
[2021-04-06] MEDS: hydrOXYzine PAMOATE 25 MG CAPSULE (FP) PO SCH ×5 (06:12→22:05)
[2021-04-06] MEDS: CYCLOBENZAPRINE HCL 10 MG TABLET (FP) PO PRN ×3 (06:14→22:06)
[2021-04-06 10:06] LABS: SARS-CoV-2 NAA Not Detected (Not Detected)
[2021-04-06] MEDS: NICOTINE 21 MG/24 HOURS TOPICAL PATCH TD SCH (10:19)
[2021-04-06] MEDS: PRENATAL VITAMINS W/ FOLIC ACID TABLET (FP) PO SCH (10:19)
[2021-04-06] MEDS: diazePAM 5 MG TABLET PO PRN ×2 (10:19→15:11)
[2021-04-06] MEDS: NICOTINE POLACRILEX 2 MG GUM BUC PRN ×2 (10:20→17:58)
[2021-04-06] MEDS ORDERED: QUEtiapine FUMARATE 50 MG TABLET PO SCH (22:00)
[2021-04-06] MEDS: MELATONIN 5 MG TABLETS PO SCH (22:05)
[2021-04-06] MEDS: THIAMINE HCL 100 MG TABLET (FP) PO SCH (22:05)
[2021-04-07] MEDS ORDERED: diazePAM 5 MG TABLET PO ONE (06:00)
[2021-04-07] MEDS: hydrOXYzine PAMOATE 25 MG CAPSULE (FP) PO SCH ×2 (06:10→10:16)
[2021-04-07] MEDS: METHADONE HCL 40 MG DISPERSABLE TABLET PO SCH (06:10)
[2021-04-07] MEDS: CYCLOBENZAPRINE HCL 10 MG TABLET (FP) PO PRN (06:10)
[2021-04-07 09:37] VITALS: BP 100/63; PULSE 62; TEMP 97.1
[2021-04-07] MEDS: PRENATAL VITAMINS W/ FOLIC ACID TABLET (FP) PO SCH (10:16)
[2021-04-07] MEDS: NICOTINE 21 MG/24 HOURS TOPICAL PATCH TD SCH (10:16)
[2021-04-07] MEDS: NICOTINE POLACRILEX 2 MG GUM BUC PRN (10:17)
== END 2021-04-07 13:00 | disposition other institution (70) | DRG 773 ==
LOC: YASAS 14:32 → Y6N 21:02 → Y3N 04-04 00:39
PROVIDERS: ADMIT Allergy & Immunology; ATTEND Allergy & Immunology
PROC: HZ2ZZZZ Detoxification Services for Substance Abuse Treatment (ICD-10-PCS; principal; 2021-04-03)
DX: F10.230 Alcohol dependence with withdrawal, uncomplicated (principal); F11.20 Opioid dependence, uncomplicated; F13.20 Sedative, hypnotic or anxiolytic dependence, uncomplicated; F14.20 Cocaine dependence, uncomplicated; F17.210 Nicotine dependence, cigarettes, uncomplicated; F19.280 Other psychoactive substance dependence with psychoactive substance-induced anxiety disorder; F19.282 Other psychoactive substance dependence with psychoactive substance-induced sleep disorder; F19.24 Other psychoactive substance dependence with psychoactive substance-induced mood disorder; F31.9 Bipolar disorder, unspecified; G47.00 Insomnia, unspecified; M54.5 Low back pain; R74.01 Elevation of levels of liver transaminase levels; R63.4 Abnormal weight loss; Z68.21 Body mass index [BMI] 21.0-21.9, adult
CPT/HCPCS: 36415; 80053; 85025; 86780; 93005; 93010; C9803; Q0162; U0003; U0005

== ENCOUNTER 2021-04-07 12:47 | Inpatient (IN) | payer OTHER ==
[2021-04-07] MEDS ORDERED: MAG HYDROX/AL HYDROX/SIMETH 30 ML UNIT-DOSE CUP PO PRN (14:09)
[2021-04-07] MEDS ORDERED: MAGNESIUM HYDROX 2400MG/30ML ORAL SUSPENSION 30 ML CUP PO PRN (14:09)
[2021-04-07] MEDS ORDERED: ACETAMINOPHEN 325 MG TABLET (FP) PO PRN (14:09)
[2021-04-07] MEDS ORDERED: IBUPROFEN 400 MG TABLET (FP) PO PRN (14:09)
[2021-04-07] MEDS ORDERED: guaiFENesin 200 MG/10 ML 10 ML UNIT-DOSE CUPS PO PRN (14:09)
[2021-04-07] MEDS ORDERED: P-EPHED 60MG/TRIPROLIDI 2.5MG TABLET PO PRN (14:09)
[2021-04-07] MEDS ORDERED: MAGNESIUM CITRATE 300 ML BOTTLE PO PRN (14:09)
[2021-04-07] MEDS ORDERED: LOPERAMIDE HCL 2 MG CAPSULE PO PRN (14:09)
[2021-04-07] MEDS ORDERED: MENTHOL/PHENOL 1 EACH UD MM PRN (14:09)
[2021-04-07] MEDS: hydrOXYzine PAMOATE 25 MG CAPSULE (FP) PO PRN (17:25)
[2021-04-07] MEDS: THIAMINE HCL 100 MG TABLET (FP) PO SCH (21:23)
[2021-04-07] MEDS: QUEtiapine FUMARATE 50 MG TABLET PO SCH (21:23)
[2021-04-07] MEDS: MELATONIN 5 MG TABLETS PO SCH (21:23)
[2021-04-07] MEDS: CYCLOBENZAPRINE HCL 10 MG TABLET (FP) PO SCH (21:23)
[2021-04-07] MEDS: NICOTINE POLACRILEX 2 MG GUM BUC PRN (21:24)
[2021-04-08] MEDS: CYCLOBENZAPRINE HCL 10 MG TABLET (FP) PO SCH ×3 (06:16→21:19)
[2021-04-08] MEDS: methaDONE HCL 40 MG DISPERSABLE TABLET PO SCH (06:16)
[2021-04-08] MEDS: hydrOXYzine PAMOATE 25 MG CAPSULE (FP) PO PRN ×4 (06:16→17:53)
[2021-04-08] MEDS: PRENATAL VITAMINS W/ FOLIC ACID TABLET (FP) PO SCH (09:57)
[2021-04-08] MEDS: NICOTINE 21 MG/24 HOURS TOPICAL PATCH TD SCH (09:58)
[2021-04-08] MEDS: NICOTINE POLACRILEX 2 MG GUM BUC PRN ×3 (09:58→21:21)
[2021-04-08] MEDS ORDERED: FLU VACCINE (FLULAVAL) PF 60 MCG/0.5 ML SYRINGE 2020-2021 IM ONE (12:00)
[2021-04-08] MEDS ORDERED: COLLOIDAL OATMEAL 1 BAR EACH TP PRN (14:42)
[2021-04-08] MEDS: LIDOCAINE 5% TOPICAL PATCH TP SCH (15:43)
[2021-04-08] MEDS: QUEtiapine FUMARATE 50 MG TABLET PO SCH (21:19)
[2021-04-08] MEDS: MELATONIN 5 MG TABLETS PO SCH (21:20)
[2021-04-08] MEDS: THIAMINE HCL 100 MG TABLET (FP) PO SCH (21:20)
[2021-04-08] MEDS: LIDOCAINE PATCH REMOVAL MC SCH (21:21)
[2021-04-09] MEDS: CYCLOBENZAPRINE HCL 10 MG TABLET (FP) PO SCH ×3 (06:35→21:48)
[2021-04-09] MEDS: methaDONE HCL 40 MG DISPERSABLE TABLET PO SCH (06:35)
[2021-04-09] MEDS: hydrOXYzine PAMOATE 25 MG CAPSULE (FP) PO PRN ×2 (06:36→10:49)
[2021-04-09] MEDS: NICOTINE POLACRILEX 2 MG GUM BUC PRN ×4 (06:36→21:48)
[2021-04-09] MEDS ORDERED: BISMUTH SUBSALICYLATE 262 MG/15 ML BTL PO PRN (10:26)
[2021-04-09] MEDS: NICOTINE 21 MG/24 HOURS TOPICAL PATCH TD SCH (10:29)
[2021-04-09] MEDS: LIDOCAINE 5% TOPICAL PATCH TP SCH (10:29)
[2021-04-09] MEDS: PRENATAL VITAMINS W/ FOLIC ACID TABLET (FP) PO SCH (10:29)
[2021-04-09] MEDS: LIDOCAINE PATCH REMOVAL MC SCH (21:48)
[2021-04-09] MEDS: QUEtiapine FUMARATE 50 MG TABLET PO SCH (21:48)
[2021-04-09] MEDS: THIAMINE HCL 100 MG TABLET (FP) PO SCH (21:48)
[2021-04-09] MEDS: MELATONIN 5 MG TABLETS PO SCH (21:48)
[2021-04-10] MEDS: methaDONE HCL 40 MG DISPERSABLE TABLET PO SCH (06:52)
[2021-04-10] MEDS: CYCLOBENZAPRINE HCL 10 MG TABLET (FP) PO SCH ×3 (06:52→21:17)
[2021-04-10] MEDS: hydrOXYzine PAMOATE 25 MG CAPSULE (FP) PO PRN ×3 (06:53→14:04)
[2021-04-10] MEDS: NICOTINE POLACRILEX 2 MG GUM BUC PRN ×4 (06:53→21:18)
[2021-04-10] MEDS: PRENATAL VITAMINS W/ FOLIC ACID TABLET (FP) PO SCH (10:25)
[2021-04-10] MEDS: LIDOCAINE 5% TOPICAL PATCH TP SCH (10:26)
[2021-04-10] MEDS: NICOTINE 21 MG/24 HOURS TOPICAL PATCH TD SCH (10:26)
[2021-04-10] MEDS: MELATONIN 5 MG TABLETS PO SCH (21:17)
[2021-04-10] MEDS: QUEtiapine FUMARATE 50 MG TABLET PO SCH (21:17)
[2021-04-10] MEDS: THIAMINE HCL 100 MG TABLET (FP) PO SCH (21:17)
[2021-04-10] MEDS: LIDOCAINE PATCH REMOVAL MC SCH (21:19)
[2021-04-11 06:08] LABS: SARS-CoV-2 NAA Not Detected (Not Detected)
[2021-04-11] MEDS: CYCLOBENZAPRINE HCL 10 MG TABLET (FP) PO SCH ×3 (07:00→21:33)
[2021-04-11] MEDS: hydrOXYzine PAMOATE 25 MG CAPSULE (FP) PO PRN ×4 (07:00→21:34)
[2021-04-11] MEDS: methaDONE HCL 40 MG DISPERSABLE TABLET PO SCH (07:00)
[2021-04-11] MEDS: NICOTINE POLACRILEX 2 MG GUM BUC PRN ×5 (07:05→21:33)
[2021-04-11] MEDS: PRENATAL VITAMINS W/ FOLIC ACID TABLET (FP) PO SCH (10:18)
[2021-04-11] MEDS: LIDOCAINE 5% TOPICAL PATCH TP SCH (10:18)
[2021-04-11] MEDS: NICOTINE 21 MG/24 HOURS TOPICAL PATCH TD SCH (10:58)
[2021-04-11] MEDS: MELATONIN 5 MG TABLETS PO SCH (21:33)
[2021-04-11] MEDS: LIDOCAINE PATCH REMOVAL MC SCH (21:33)
[2021-04-11] MEDS: QUEtiapine FUMARATE 50 MG TABLET PO SCH (21:33)
[2021-04-11] MEDS: THIAMINE HCL 100 MG TABLET (FP) PO SCH (21:33)
[2021-04-12] MEDS: methaDONE HCL 40 MG DISPERSABLE TABLET PO SCH (06:47)
[2021-04-12] MEDS: CYCLOBENZAPRINE HCL 10 MG TABLET (FP) PO SCH ×3 (06:48→21:13)
[2021-04-12] MEDS: NICOTINE POLACRILEX 2 MG GUM BUC PRN ×4 (06:48→21:14)
[2021-04-12] MEDS: hydrOXYzine PAMOATE 25 MG CAPSULE (FP) PO PRN ×3 (06:48→21:13)
[2021-04-12] MEDS: PRENATAL VITAMINS W/ FOLIC ACID TABLET (FP) PO SCH (09:34)
[2021-04-12] MEDS: LIDOCAINE 5% TOPICAL PATCH TP SCH (09:34)
[2021-04-12] MEDS: NICOTINE 21 MG/24 HOURS TOPICAL PATCH TD SCH (09:34)
[2021-04-12] MEDS: MELATONIN 5 MG TABLETS PO SCH (21:13)
[2021-04-12] MEDS: THIAMINE HCL 100 MG TABLET (FP) PO SCH (21:13)
[2021-04-12] MEDS: QUEtiapine FUMARATE 50 MG TABLET PO SCH (21:13)
[2021-04-12] MEDS: LIDOCAINE PATCH REMOVAL MC SCH (21:13)
[2021-04-13] MEDS: hydrOXYzine PAMOATE 25 MG CAPSULE (FP) PO PRN ×4 (06:41→21:40)
[2021-04-13] MEDS: methaDONE HCL 40 MG DISPERSABLE TABLET PO SCH (06:41)
[2021-04-13] MEDS: NICOTINE POLACRILEX 2 MG GUM BUC PRN ×4 (06:41→21:40)
[2021-04-13] MEDS: CYCLOBENZAPRINE HCL 10 MG TABLET (FP) PO SCH ×3 (06:41→21:39)
[2021-04-13] MEDS: LIDOCAINE 5% TOPICAL PATCH TP SCH (10:35)
[2021-04-13] MEDS: PRENATAL VITAMINS W/ FOLIC ACID TABLET (FP) PO SCH (10:35)
[2021-04-13] MEDS: NICOTINE 21 MG/24 HOURS TOPICAL PATCH TD SCH (10:36)
[2021-04-13] MEDS: MELATONIN 5 MG TABLETS PO SCH (21:39)
[2021-04-13] MEDS: THIAMINE HCL 100 MG TABLET (FP) PO SCH (21:39)
[2021-04-13] MEDS: LIDOCAINE PATCH REMOVAL MC SCH (21:39)
[2021-04-13] MEDS: QUEtiapine FUMARATE 50 MG TABLET PO SCH (21:39)
[2021-04-14] MEDS: CYCLOBENZAPRINE HCL 10 MG TABLET (FP) PO SCH ×3 (06:44→21:13)
[2021-04-14] MEDS: hydrOXYzine PAMOATE 25 MG CAPSULE (FP) PO PRN ×4 (06:44→21:14)
[2021-04-14] MEDS: NICOTINE POLACRILEX 2 MG GUM BUC PRN ×4 (06:44→21:14)
[2021-04-14] MEDS: methaDONE HCL 40 MG DISPERSABLE TABLET PO SCH (06:44)
[2021-04-14] MEDS: PRENATAL VITAMINS W/ FOLIC ACID TABLET (FP) PO SCH (09:56)
[2021-04-14] MEDS: NICOTINE 21 MG/24 HOURS TOPICAL PATCH TD SCH (09:57)
[2021-04-14] MEDS: LIDOCAINE 5% TOPICAL PATCH TP SCH (09:57)
[2021-04-14] MEDS: MELATONIN 5 MG TABLETS PO SCH (21:13)
[2021-04-14] MEDS: THIAMINE HCL 100 MG TABLET (FP) PO SCH (21:13)
[2021-04-14] MEDS: QUEtiapine FUMARATE 50 MG TABLET PO SCH (21:13)
[2021-04-14] MEDS: LIDOCAINE PATCH REMOVAL MC SCH (21:14)
[2021-04-15] MEDS: methaDONE HCL 40 MG DISPERSABLE TABLET PO SCH (06:23)
[2021-04-15] MEDS: CYCLOBENZAPRINE HCL 10 MG TABLET (FP) PO SCH ×3 (06:23→21:16)
[2021-04-15] MEDS: hydrOXYzine PAMOATE 25 MG CAPSULE (FP) PO PRN ×4 (06:24→21:17)
[2021-04-15] MEDS: NICOTINE POLACRILEX 2 MG GUM BUC PRN ×2 (06:26→10:21)
[2021-04-15] MEDS: PRENATAL VITAMINS W/ FOLIC ACID TABLET (FP) PO SCH (10:19)
[2021-04-15] MEDS: NICOTINE 21 MG/24 HOURS TOPICAL PATCH TD SCH (10:21)
[2021-04-15] MEDS: LIDOCAINE 5% TOPICAL PATCH TP SCH (10:22)
[2021-04-15] MEDS: THIAMINE HCL 100 MG TABLET (FP) PO SCH (21:16)
[2021-04-15] MEDS: QUEtiapine FUMARATE 50 MG TABLET PO SCH (21:16)
[2021-04-15] MEDS: MELATONIN 5 MG TABLETS PO SCH (21:16)
[2021-04-15] MEDS: LIDOCAINE PATCH REMOVAL MC SCH (21:17)
[2021-04-16] MEDS: methaDONE HCL 40 MG DISPERSABLE TABLET PO SCH (06:32)
[2021-04-16] MEDS: CYCLOBENZAPRINE HCL 10 MG TABLET (FP) PO SCH ×3 (06:32→21:22)
[2021-04-16] MEDS: hydrOXYzine PAMOATE 25 MG CAPSULE (FP) PO PRN ×4 (06:32→21:23)
[2021-04-16] MEDS: NICOTINE POLACRILEX 2 MG GUM BUC PRN (06:33)
[2021-04-16] MEDS: LIDOCAINE 5% TOPICAL PATCH TP SCH (10:23)
[2021-04-16] MEDS: PRENATAL VITAMINS W/ FOLIC ACID TABLET (FP) PO SCH (10:23)
[2021-04-16] MEDS: NICOTINE 21 MG/24 HOURS TOPICAL PATCH TD SCH (10:24)
[2021-04-16] MEDS: QUEtiapine FUMARATE 50 MG TABLET PO SCH (21:22)
[2021-04-16] MEDS: THIAMINE HCL 100 MG TABLET (FP) PO SCH (21:22)
[2021-04-16] MEDS: MELATONIN 5 MG TABLETS PO SCH (21:23)
[2021-04-16] MEDS: LIDOCAINE PATCH REMOVAL MC SCH (21:24)
[2021-04-17] MEDS: methaDONE HCL 40 MG DISPERSABLE TABLET PO SCH (06:32)
[2021-04-17] MEDS: CYCLOBENZAPRINE HCL 10 MG TABLET (FP) PO SCH ×3 (06:33→21:35)
[2021-04-17] MEDS: hydrOXYzine PAMOATE 25 MG CAPSULE (FP) PO PRN ×3 (06:33→21:35)
[2021-04-17] MEDS: NICOTINE POLACRILEX 2 MG GUM BUC PRN (06:33)
[2021-04-17] MEDS: PRENATAL VITAMINS W/ FOLIC ACID TABLET (FP) PO SCH (10:05)
[2021-04-17] MEDS: LIDOCAINE 5% TOPICAL PATCH TP SCH (10:06)
[2021-04-17] MEDS: NICOTINE 21 MG/24 HOURS TOPICAL PATCH TD SCH (10:07)
[2021-04-17] MEDS: QUEtiapine FUMARATE 50 MG TABLET PO SCH (21:35)
[2021-04-17] MEDS: MELATONIN 5 MG TABLETS PO SCH (21:35)
[2021-04-17] MEDS: THIAMINE HCL 100 MG TABLET (FP) PO SCH (21:36)
[2021-04-17] MEDS: LIDOCAINE PATCH REMOVAL MC SCH (21:37)
[2021-04-18] MEDS: CYCLOBENZAPRINE HCL 10 MG TABLET (FP) PO SCH ×3 (05:58→21:28)
[2021-04-18] MEDS: methaDONE HCL 40 MG DISPERSABLE TABLET PO SCH (05:58)
[2021-04-18] MEDS: hydrOXYzine PAMOATE 25 MG CAPSULE (FP) PO PRN ×4 (05:58→21:28)
[2021-04-18] MEDS: LIDOCAINE 5% TOPICAL PATCH TP SCH (10:20)
[2021-04-18] MEDS: PRENATAL VITAMINS W/ FOLIC ACID TABLET (FP) PO SCH (10:20)
[2021-04-18] MEDS: NICOTINE 21 MG/24 HOURS TOPICAL PATCH TD SCH (10:21)
[2021-04-18] MEDS: QUEtiapine FUMARATE 50 MG TABLET PO SCH (21:28)
[2021-04-18] MEDS: THIAMINE HCL 100 MG TABLET (FP) PO SCH (21:28)
[2021-04-18] MEDS: MELATONIN 5 MG TABLETS PO SCH (21:28)
[2021-04-18] MEDS: LIDOCAINE PATCH REMOVAL MC SCH (21:29)
[2021-04-19] MEDS: methaDONE HCL 40 MG DISPERSABLE TABLET PO SCH (06:25)
[2021-04-19] MEDS: hydrOXYzine PAMOATE 25 MG CAPSULE (FP) PO PRN ×2 (06:25→13:44)
[2021-04-19] MEDS: CYCLOBENZAPRINE HCL 10 MG TABLET (FP) PO SCH ×3 (06:25→21:28)
[2021-04-19] MEDS: PRENATAL VITAMINS W/ FOLIC ACID TABLET (FP) PO SCH (09:51)
[2021-04-19] MEDS: LIDOCAINE 5% TOPICAL PATCH TP SCH (09:52)
[2021-04-19] MEDS: NICOTINE 21 MG/24 HOURS TOPICAL PATCH TD SCH (09:52)
[2021-04-19] MEDS: QUEtiapine FUMARATE 50 MG TABLET PO SCH (21:28)
[2021-04-19] MEDS: THIAMINE HCL 100 MG TABLET (FP) PO SCH (21:28)
[2021-04-19] MEDS: MELATONIN 5 MG TABLETS PO SCH (21:28)
[2021-04-19] MEDS: LIDOCAINE PATCH REMOVAL MC SCH (21:29)
[2021-04-20] MEDS: hydrOXYzine PAMOATE 25 MG CAPSULE (FP) PO PRN ×3 (06:26→21:20)
[2021-04-20] MEDS: CYCLOBENZAPRINE HCL 10 MG TABLET (FP) PO SCH ×3 (06:26→21:19)
[2021-04-20] MEDS: methaDONE HCL 40 MG DISPERSABLE TABLET PO SCH (06:26)
[2021-04-20] MEDS: PRENATAL VITAMINS W/ FOLIC ACID TABLET (FP) PO SCH (10:04)
[2021-04-20] MEDS: LIDOCAINE 5% TOPICAL PATCH TP SCH (10:05)
[2021-04-20] MEDS: NICOTINE 21 MG/24 HOURS TOPICAL PATCH TD SCH (10:05)
[2021-04-20] MEDS: LIDOCAINE PATCH REMOVAL MC SCH (21:20)
[2021-04-20] MEDS: THIAMINE HCL 100 MG TABLET (FP) PO SCH (21:20)
[2021-04-20] MEDS: MELATONIN 5 MG TABLETS PO SCH (21:20)
[2021-04-20] MEDS: QUEtiapine FUMARATE 50 MG TABLET PO SCH (21:20)
[2021-04-21] MEDS: hydrOXYzine PAMOATE 25 MG CAPSULE (FP) PO PRN (06:26)
[2021-04-21] MEDS: CYCLOBENZAPRINE HCL 10 MG TABLET (FP) PO SCH (06:26)
[2021-04-21] MEDS: methaDONE HCL 40 MG DISPERSABLE TABLET PO SCH (06:26)
[2021-04-21 06:46] VITALS: BP 129/71; PULSE 73; TEMP 97.8
== END 2021-04-21 09:55 | disposition home or self-care (01) | DRG 772 ==
LOC: YASAS 12:47 → Y3W 12:48
PROVIDERS: ADMIT Allergy & Immunology; ATTEND Allergy & Immunology
PROC: HZ42ZZZ Group Counseling for Substance Abuse Treatment, Cognitive-Behavioral (ICD-10-PCS; principal; 2021-04-07)
DX: F10.20 Alcohol dependence, uncomplicated (principal); F12.20 Cannabis dependence, uncomplicated; F14.20 Cocaine dependence, uncomplicated; F13.20 Sedative, hypnotic or anxiolytic dependence, uncomplicated; F10.288 Alcohol dependence with other alcohol-induced disorder; F31.9 Bipolar disorder, unspecified; F41.9 Anxiety disorder, unspecified; B18.2 Chronic viral hepatitis C; M54.5 Low back pain; G89.29 Other chronic pain; R19.7 Diarrhea, unspecified; Z63.4 Disappearance and death of family member; Z68.20 Body mass index [BMI] 20.0-20.9, adult
CPT/HCPCS: C9803; G0008; Q2036; U0003; U0005

== ENCOUNTER 2023-06-13 15:30 | Inpatient (IN) | payer OTHER ==
[2023-06-13 18:21] VITALS: BMI 19.9
[2023-06-13] MEDS ORDERED: IBUPROFEN 600 MG TABLET (FP) PO PRN (21:04)
[2023-06-13] MEDS ORDERED: LOPERAMIDE HCL 2 MG CAPSULE PO PRN (21:04)
[2023-06-13] MEDS ORDERED: BISMUTH SUBSALICYLATE 524 MG/30 ML PO PRN (21:04)
[2023-06-13] MEDS ORDERED: guaiFENesin 600 MG TABLET.ER (FP) PO PRN (21:04)
[2023-06-13] MEDS ORDERED: ACETAMINOPHEN 325 MG TABLET (FP) PO PRN (21:04)
[2023-06-13] MEDS ORDERED: MAG HYDROX/AL HYDROX/SIMETH 30 ML UNIT-DOSE CUP PO PRN (21:04)
[2023-06-13] MEDS ORDERED: MAGNESIUM HYDROX 2400MG/30ML ORAL SUSPENSION 30 ML CUP PO PRN (21:04)
[2023-06-13] MEDS ORDERED: IBUPROFEN 400 MG TABLET (FP) PO PRN (21:04)
[2023-06-13] MEDS ORDERED: DICYCLOMINE HCL 10 MG CAPSULE PO PRN (21:04)
[2023-06-13] MEDS ORDERED: BENZOCAINE/MENTHOL (CHLORASEPTIC ) LOZENGE MM PRN (21:04)
[2023-06-13] MEDS ORDERED: POLYETHYLENE GLYCOL (HEALTHYLAX) 3350 17 GM PACKET PO PRN (21:04)
[2023-06-13] MEDS ORDERED: NALOXONE HCL 0.4 MG/ML VIAL IM PRN (21:04)
[2023-06-13] MEDS ORDERED: ONDANSETRON *ODT* 4 MG TABLET SL PRN (21:04)
[2023-06-13] MEDS ORDERED: NALOXONE HCL (KLOXXADO) 8 MG SPRAY NS PRN (21:04)
[2023-06-13] MEDS ORDERED: BENZONATATE 200 MG CAPSULE PO PRN (21:04)
[2023-06-13] MEDS ORDERED: chlordiazePOXIDE HCL 25 MG CAPSULE PO PRN (23:24)
[2023-06-13] MEDS: chlordiazePOXIDE HCL 25 MG CAPSULE PO SCH (23:40)
[2023-06-13] MEDS: MELATONIN 5 MG TABLETS PO SCH (23:44)
[2023-06-13] MEDS: THIAMINE HCL 100 MG TABLET (FP) PO SCH (23:45)
[2023-06-14] MEDS: chlordiazePOXIDE HCL 25 MG CAPSULE PO SCH ×4 (05:30→22:13)
[2023-06-14] MEDS ORDERED: methaDONE HCL 10 MG TABLET PO SCH (10:15)
[2023-06-14] MEDS: methaDONE 40 MG, methaDONE 10 MG PO SCH (10:31)
[2023-06-14] MEDS: METHOCARBAMOL 500 MG TABLET PO PRN ×2 (10:31→22:16)
[2023-06-14] MEDS: hydrOXYzine PAMOATE 25 MG CAPSULE (FP) PO PRN (10:31)
[2023-06-14] MEDS: PRENATAL VITAMINS W/ FOLIC ACID TABLET (FP) PO SCH (10:32)
[2023-06-14] MEDS: NICOTINE 14 MG/24 HOURS TOPICAL PATCH TD SCH (10:32)
[2023-06-14] MEDS: NICOTINE POLACRILEX 2 MG GUM BUC PRN ×2 (10:32→13:14)
[2023-06-14 10:43] LABS: HEMOGLOBIN 12.1 GM/dL (11.7-16.9); MCH 28.4 pg (25.7-33.7); MCHC 33.5 g/dl (32.0-35.9); MEAN CELL VOLUME 84.8 fl (80-96); MEAN PLT VOLUME 9.3 fl (7.5-11.1); PLATELET COUNT 205 10^3/uL (134-434); RBC 4.25 M/mm3 (4.00-5.60); RDW 13.4 % (11.9-15.9); WHITE BLOOD COUNT 6.2 K/mm3 (4.0-10.0)
[2023-06-14 10:44] LABS: POTASSIUM 4.1 mmol/L (3.5-5.1)
[2023-06-14 10:48] LABS: CALCIUM 8.4 mg/dL (8.5-10.1)
[2023-06-14 10:49] LABS: ALBUMIN 3.1 g/dl (3.4-5.0); BLOOD UREA NITROGEN 18.9 mg/dL (7-18)
[2023-06-14 10:52] LABS: CREATININE 0.7 mg/dL (0.55-1.3)
[2023-06-14 10:53] LABS: TOT PROT 6.7 g/dl (6.4-8.2)
[2023-06-14 10:54] LABS: BILIRUBIN,TOTAL 0.2 mg/dL (0.2-1)
[2023-06-14] MEDS: QUEtiapine FUMARATE 50 MG TABLET PO SCH (22:13)
[2023-06-14] MEDS: THIAMINE HCL 100 MG TABLET (FP) PO SCH (22:13)
[2023-06-14] MEDS: MELATONIN 5 MG TABLETS PO SCH (22:14)
[2023-06-15] MEDS: methaDONE 40 MG, methaDONE 10 MG PO SCH (05:21)
[2023-06-15] MEDS: chlordiazePOXIDE HCL 25 MG CAPSULE PO SCH ×4 (05:21→22:15)
[2023-06-15] MEDS: NICOTINE POLACRILEX 2 MG GUM BUC PRN ×2 (06:35→17:37)
[2023-06-15] MEDS ORDERED: COLLOIDAL OATMEAL 1 BAR EACH TP PRN (07:30)
[2023-06-15] MEDS: NICOTINE 14 MG/24 HOURS TOPICAL PATCH TD SCH (10:06)
[2023-06-15] MEDS: hydrOXYzine PAMOATE 25 MG CAPSULE (FP) PO PRN ×2 (10:07→17:34)
[2023-06-15] MEDS: PRENATAL VITAMINS W/ FOLIC ACID TABLET (FP) PO SCH (10:07)
[2023-06-15] MEDS: METHOCARBAMOL 500 MG TABLET PO PRN ×2 (10:07→22:17)
[2023-06-15] MEDS: TOLNAFTATE 1% CREAM 15 GM TUBE TP SCH ×2 (10:10→22:19)
[2023-06-15] MEDS: THIAMINE HCL 100 MG TABLET (FP) PO SCH (22:14)
[2023-06-15] MEDS: QUEtiapine FUMARATE 50 MG TABLET PO SCH (22:14)
[2023-06-15] MEDS: MELATONIN 5 MG TABLETS PO SCH (22:19)
[2023-06-16] MEDS ORDERED: chlordiazePOXIDE HCL 10 MG CAPSULE PO PRN
[2023-06-16] MEDS: chlordiazePOXIDE HCL 10 MG CAPSULE PO SCH ×4 (05:18→22:28)
[2023-06-16] MEDS: methaDONE 40 MG, methaDONE 10 MG PO SCH (05:18)
[2023-06-16] MEDS: hydrOXYzine PAMOATE 25 MG CAPSULE (FP) PO PRN (05:21)
[2023-06-16] MEDS: NICOTINE POLACRILEX 2 MG GUM BUC PRN ×3 (07:28→22:31)
[2023-06-16] MEDS: PRENATAL VITAMINS W/ FOLIC ACID TABLET (FP) PO SCH (10:11)
[2023-06-16] MEDS: METHOCARBAMOL 500 MG TABLET PO PRN ×2 (10:11→17:37)
[2023-06-16] MEDS: TOLNAFTATE 1% CREAM 15 GM TUBE TP SCH ×2 (10:12→22:30)
[2023-06-16] MEDS: NICOTINE 14 MG/24 HOURS TOPICAL PATCH TD SCH (10:12)
[2023-06-16] MEDS: QUEtiapine FUMARATE 50 MG TABLET PO SCH (22:28)
[2023-06-16] MEDS: MELATONIN 5 MG TABLETS PO SCH (22:28)
[2023-06-16] MEDS: THIAMINE HCL 100 MG TABLET (FP) PO SCH (22:28)
[2023-06-17] MEDS: methaDONE 40 MG, methaDONE 10 MG PO SCH (05:57)
[2023-06-17] MEDS: chlordiazePOXIDE HCL 10 MG CAPSULE PO SCH ×2 (05:57→17:14)
[2023-06-17] MEDS: METHOCARBAMOL 500 MG TABLET PO PRN ×2 (06:00→22:21)
[2023-06-17] MEDS: NICOTINE POLACRILEX 2 MG GUM BUC PRN ×3 (06:01→22:22)
[2023-06-17] MEDS: TOLNAFTATE 1% CREAM 15 GM TUBE TP SCH ×2 (10:16→23:01)
[2023-06-17] MEDS: NICOTINE 14 MG/24 HOURS TOPICAL PATCH TD SCH (10:16)
[2023-06-17] MEDS: PRENATAL VITAMINS W/ FOLIC ACID TABLET (FP) PO SCH (10:16)
[2023-06-17] MEDS: hydrOXYzine PAMOATE 25 MG CAPSULE (FP) PO PRN ×2 (10:17→17:16)
[2023-06-17] MEDS: QUEtiapine FUMARATE 50 MG TABLET PO SCH (22:20)
[2023-06-17] MEDS: THIAMINE HCL 100 MG TABLET (FP) PO SCH (22:20)
[2023-06-17] MEDS: MELATONIN 5 MG TABLETS PO SCH (22:20)
[2023-06-18] MEDS ORDERED: chlordiazePOXIDE HCL 10 MG CAPSULE PO ONE (05:00)
[2023-06-18] MEDS: methaDONE 40 MG, methaDONE 10 MG PO SCH (05:41)
[2023-06-18] MEDS: NICOTINE POLACRILEX 2 MG GUM BUC PRN ×2 (05:42→10:33)
[2023-06-18] MEDS: METHOCARBAMOL 500 MG TABLET PO PRN (05:42)
[2023-06-18] MEDS: PRENATAL VITAMINS W/ FOLIC ACID TABLET (FP) PO SCH (10:32)
[2023-06-18] MEDS: hydrOXYzine PAMOATE 25 MG CAPSULE (FP) PO PRN (10:32)
[2023-06-18] MEDS: TOLNAFTATE 1% CREAM 15 GM TUBE TP SCH (10:32)
[2023-06-18] MEDS: NICOTINE 14 MG/24 HOURS TOPICAL PATCH TD SCH (10:32)
[2023-06-18 11:02] VITALS: BP 124/74; PULSE 70; RESP 17; TEMP 98
== END 2023-06-18 12:35 | disposition other institution (70) | DRG 775 ==
LOC: YASAS 15:30 → Y6N 21:14
PROVIDERS: ADMIT Allergy & Immunology; ATTEND Surgery
PROC: HZ2ZZZZ Detoxification Services for Substance Abuse Treatment (ICD-10-PCS; principal; 2023-06-13)
DX: F10.230 Alcohol dependence with withdrawal, uncomplicated (principal); F12.20 Cannabis dependence, uncomplicated; F17.201 Nicotine dependence, unspecified, in remission; F39 Unspecified mood [affective] disorder; F19.980 Other psychoactive substance use, unspecified with psychoactive substance-induced anxiety disorder; F19.982 Other psychoactive substance use, unspecified with psychoactive substance-induced sleep disorder; M54.50 Low back pain, unspecified; G89.29 Other chronic pain; B18.2 Chronic viral hepatitis C; Z28.310 Unvaccinated for COVID-19; Z91.013 Allergy to seafood; Z62.810 Personal history of physical and sexual abuse in childhood; Z56.0 Unemployment, unspecified; Z59.00 Homelessness unspecified
CPT/HCPCS: 36415; 80053; 80307; 85027; 86780; 87635

== ENCOUNTER 2023-06-18 12:34 | Inpatient (IN) | payer OTHER ==
[2023-06-18] MEDS ORDERED: MAG HYDROX/AL HYDROX/SIMETH 30 ML UNIT-DOSE CUP PO PRN (13:33)
[2023-06-18] MEDS ORDERED: BENZONATATE 200 MG CAPSULE PO PRN (13:33)
[2023-06-18] MEDS ORDERED: POLYETHYLENE GLYCOL (HEALTHYLAX) 3350 17 GM PACKET PO PRN (13:33)
[2023-06-18] MEDS ORDERED: NALOXONE HCL (KLOXXADO) 8 MG SPRAY NS PRN (13:33)
[2023-06-18] MEDS ORDERED: AMMONIUM LACTATE 12% LOTION 225 GM BOTTLE TP PRN (13:33)
[2023-06-18] MEDS ORDERED: MAGNESIUM HYDROX 2400MG/30ML ORAL SUSPENSION 30 ML CUP PO PRN (13:33)
[2023-06-18] MEDS ORDERED: IBUPROFEN 400 MG TABLET (FP) PO PRN (13:33)
[2023-06-18] MEDS ORDERED: COLLOIDAL OATMEAL 1 BAR EACH TP PRN (13:33)
[2023-06-18] MEDS ORDERED: BENZOCAINE/MENTHOL (CHLORASEPTIC ) LOZENGE MM PRN (13:33)
[2023-06-18] MEDS ORDERED: NALOXONE HCL 0.4 MG/ML VIAL IVPUSH PRN (13:33)
[2023-06-18] MEDS ORDERED: LOPERAMIDE HCL 2 MG CAPSULE PO PRN (13:33)
[2023-06-18] MEDS ORDERED: ACETAMINOPHEN 325 MG TABLET (FP) PO PRN (13:33)
[2023-06-18] MEDS ORDERED: guaiFENesin 600 MG TABLET.ER (FP) PO PRN (13:33)
[2023-06-18] MEDS: PRENATAL VITAMINS W/ FOLIC ACID TABLET (FP) PO SCH (14:26)
[2023-06-18] MEDS: NICOTINE 14 MG/24 HOURS TOPICAL PATCH TD SCH (14:27)
[2023-06-18] MEDS: NICOTINE POLACRILEX 2 MG GUM BUC PRN (17:13)
[2023-06-18] MEDS: QUEtiapine FUMARATE 50 MG TABLET PO SCH (21:21)
[2023-06-18] MEDS: THIAMINE HCL 100 MG TABLET (FP) PO SCH (21:21)
[2023-06-18] MEDS: MELATONIN 5 MG TABLETS PO SCH (21:21)
[2023-06-19] MEDS: methaDONE HCL 10 MG TABLET PO SCH (06:52)
[2023-06-19] MEDS: hydrOXYzine PAMOATE 25 MG CAPSULE (FP) PO PRN ×2 (06:54→22:05)
[2023-06-19] MEDS: NICOTINE POLACRILEX 2 MG GUM BUC PRN ×3 (06:55→21:21)
[2023-06-19] MEDS: PRENATAL VITAMINS W/ FOLIC ACID TABLET (FP) PO SCH (09:49)
[2023-06-19] MEDS: METHOCARBAMOL 500 MG TABLET PO PRN (09:50)
[2023-06-19] MEDS: IBUPROFEN 600 MG TABLET (FP) PO PRN ×2 (09:50→21:20)
[2023-06-19] MEDS: NICOTINE 14 MG/24 HOURS TOPICAL PATCH TD SCH (10:22)
[2023-06-19] MEDS: MELATONIN 5 MG TABLETS PO SCH (21:19)
[2023-06-19] MEDS: QUEtiapine FUMARATE 50 MG TABLET PO SCH (21:20)
[2023-06-19] MEDS: THIAMINE HCL 100 MG TABLET (FP) PO SCH (21:20)
[2023-06-20] MEDS: methaDONE 40 MG, methaDONE 10 MG PO SCH (06:33)
[2023-06-20] MEDS: methaDONE HCL 10 MG TABLET PO SCH (06:34)
[2023-06-20] MEDS: METHOCARBAMOL 500 MG TABLET PO PRN ×2 (06:35→18:37)
[2023-06-20] MEDS: hydrOXYzine PAMOATE 25 MG CAPSULE (FP) PO PRN ×2 (06:35→18:37)
[2023-06-20] MEDS: NICOTINE POLACRILEX 2 MG GUM BUC PRN ×3 (06:35→18:38)
[2023-06-20] MEDS: NICOTINE 14 MG/24 HOURS TOPICAL PATCH TD SCH (09:57)
[2023-06-20] MEDS: PRENATAL VITAMINS W/ FOLIC ACID TABLET (FP) PO SCH (09:57)
[2023-06-20] MEDS: MELATONIN 5 MG TABLETS PO SCH (21:23)
[2023-06-20] MEDS: THIAMINE HCL 100 MG TABLET (FP) PO SCH (21:23)
[2023-06-20] MEDS: QUEtiapine FUMARATE 50 MG TABLET PO SCH (21:24)
[2023-06-21] MEDS: methaDONE 40 MG, methaDONE 10 MG PO SCH ×2 (06:46→06:48)
[2023-06-21] MEDS: methaDONE HCL 10 MG TABLET PO SCH (06:48)
[2023-06-21] MEDS: hydrOXYzine PAMOATE 25 MG CAPSULE (FP) PO PRN (06:49)
[2023-06-21] MEDS: METHOCARBAMOL 500 MG TABLET PO PRN (06:50)
[2023-06-21] MEDS: NICOTINE POLACRILEX 2 MG GUM BUC PRN ×4 (06:51→21:25)
[2023-06-21] MEDS: LIDOCAINE 5% TOPICAL PATCH TP SCH (09:59)
[2023-06-21] MEDS: PRENATAL VITAMINS W/ FOLIC ACID TABLET (FP) PO SCH (09:59)
[2023-06-21] MEDS: NICOTINE 14 MG/24 HOURS TOPICAL PATCH TD SCH (09:59)
[2023-06-21] MEDS: CYCLOBENZAPRINE HCL 10 MG TABLET (FP) PO SCH ×2 (13:40→21:24)
[2023-06-21] MEDS: THIAMINE HCL 100 MG TABLET (FP) PO SCH (21:24)
[2023-06-21] MEDS: QUEtiapine FUMARATE 50 MG TABLET PO SCH (21:25)
[2023-06-21] MEDS: LIDOCAINE PATCH REMOVAL MC SCH (21:25)
[2023-06-21] MEDS: MELATONIN 5 MG TABLETS PO SCH (21:25)
[2023-06-22] MEDS: methaDONE HCL 10 MG TABLET PO SCH (06:19)
[2023-06-22] MEDS: NICOTINE POLACRILEX 2 MG GUM BUC PRN ×4 (06:54→21:26)
[2023-06-22] MEDS: CYCLOBENZAPRINE HCL 10 MG TABLET (FP) PO SCH ×3 (06:55→21:26)
[2023-06-22] MEDS: hydrOXYzine PAMOATE 25 MG CAPSULE (FP) PO PRN ×2 (06:56→21:35)
[2023-06-22] MEDS: methaDONE 40 MG, methaDONE 10 MG PO SCH (06:56)
[2023-06-22] MEDS: NICOTINE 14 MG/24 HOURS TOPICAL PATCH TD SCH (09:53)
[2023-06-22] MEDS: PRENATAL VITAMINS W/ FOLIC ACID TABLET (FP) PO SCH (09:53)
[2023-06-22] MEDS: LIDOCAINE 5% TOPICAL PATCH TP SCH (09:53)
[2023-06-22] MEDS: QUEtiapine FUMARATE 50 MG TABLET PO SCH (21:26)
[2023-06-22] MEDS: THIAMINE HCL 100 MG TABLET (FP) PO SCH (21:26)
[2023-06-22] MEDS: MELATONIN 5 MG TABLETS PO SCH (21:26)
[2023-06-22] MEDS: LIDOCAINE PATCH REMOVAL MC SCH (21:27)
[2023-06-23] MEDS: hydrOXYzine PAMOATE 25 MG CAPSULE (FP) PO PRN ×2 (06:45→21:20)
[2023-06-23] MEDS: CYCLOBENZAPRINE HCL 10 MG TABLET (FP) PO SCH ×3 (06:45→21:20)
[2023-06-23] MEDS: methaDONE 40 MG, methaDONE 10 MG PO SCH (06:45)
[2023-06-23] MEDS: NICOTINE POLACRILEX 2 MG GUM BUC PRN ×4 (06:46→21:21)
[2023-06-23] MEDS: PRENATAL VITAMINS W/ FOLIC ACID TABLET (FP) PO SCH (09:47)
[2023-06-23] MEDS: LIDOCAINE 5% TOPICAL PATCH TP SCH (10:17)
[2023-06-23] MEDS: NICOTINE 14 MG/24 HOURS TOPICAL PATCH TD SCH (10:18)
[2023-06-23] MEDS ORDERED: BACITRACIN 0.9 GM PACKET TP SCH (10:30)
[2023-06-23] MEDS: MELATONIN 5 MG TABLETS PO SCH (21:20)
[2023-06-23] MEDS: QUEtiapine FUMARATE 50 MG TABLET PO SCH (21:20)
[2023-06-23] MEDS: THIAMINE HCL 100 MG TABLET (FP) PO SCH (21:20)
[2023-06-23] MEDS: LIDOCAINE PATCH REMOVAL MC SCH (21:37)
[2023-06-24] MEDS: CYCLOBENZAPRINE HCL 10 MG TABLET (FP) PO SCH ×3 (06:35→21:34)
[2023-06-24] MEDS: methaDONE 40 MG, methaDONE 10 MG PO SCH (06:35)
[2023-06-24] MEDS: hydrOXYzine PAMOATE 25 MG CAPSULE (FP) PO PRN ×2 (06:35→17:53)
[2023-06-24] MEDS: NICOTINE POLACRILEX 2 MG GUM BUC PRN (06:35)
[2023-06-24] MEDS: PRENATAL VITAMINS W/ FOLIC ACID TABLET (FP) PO SCH (10:12)
[2023-06-24] MEDS: NICOTINE 14 MG/24 HOURS TOPICAL PATCH TD SCH (10:12)
[2023-06-24] MEDS: LIDOCAINE 5% TOPICAL PATCH TP SCH (10:12)
[2023-06-24] MEDS: THIAMINE HCL 100 MG TABLET (FP) PO SCH (21:34)
[2023-06-24] MEDS: MELATONIN 5 MG TABLETS PO SCH (21:34)
[2023-06-24] MEDS: QUEtiapine FUMARATE 50 MG TABLET PO SCH (21:34)
[2023-06-24] MEDS: LIDOCAINE PATCH REMOVAL MC SCH (21:36)
[2023-06-25] MEDS: hydrOXYzine PAMOATE 25 MG CAPSULE (FP) PO PRN ×3 (06:40→21:28)
[2023-06-25] MEDS: CYCLOBENZAPRINE HCL 10 MG TABLET (FP) PO SCH ×3 (06:40→21:28)
[2023-06-25] MEDS: methaDONE 40 MG, methaDONE 10 MG PO SCH (06:40)
[2023-06-25] MEDS: NICOTINE POLACRILEX 2 MG GUM BUC PRN ×3 (06:41→13:21)
[2023-06-25] MEDS: NICOTINE 14 MG/24 HOURS TOPICAL PATCH TD SCH (10:40)
[2023-06-25] MEDS: PRENATAL VITAMINS W/ FOLIC ACID TABLET (FP) PO SCH (10:40)
[2023-06-25] MEDS: LIDOCAINE 5% TOPICAL PATCH TP SCH (10:41)
[2023-06-25] MEDS: MELATONIN 5 MG TABLETS PO SCH (21:27)
[2023-06-25] MEDS: LIDOCAINE PATCH REMOVAL MC SCH (21:28)
[2023-06-25] MEDS: THIAMINE HCL 100 MG TABLET (FP) PO SCH (21:28)
[2023-06-25] MEDS: QUEtiapine FUMARATE 50 MG TABLET PO SCH (21:28)
[2023-06-26] MEDS: hydrOXYzine PAMOATE 25 MG CAPSULE (FP) PO PRN ×2 (06:04→21:31)
[2023-06-26] MEDS: methaDONE 40 MG, methaDONE 10 MG PO SCH (06:05)
[2023-06-26] MEDS: CYCLOBENZAPRINE HCL 10 MG TABLET (FP) PO SCH ×3 (06:06→21:30)
[2023-06-26] MEDS: NICOTINE POLACRILEX 2 MG GUM BUC PRN ×4 (06:07→21:31)
[2023-06-26] MEDS: LIDOCAINE 5% TOPICAL PATCH TP SCH (09:43)
[2023-06-26] MEDS: PRENATAL VITAMINS W/ FOLIC ACID TABLET (FP) PO SCH (09:43)
[2023-06-26] MEDS: NICOTINE 14 MG/24 HOURS TOPICAL PATCH TD SCH (09:43)
[2023-06-26] MEDS: QUEtiapine FUMARATE 50 MG TABLET PO SCH (21:30)
[2023-06-26] MEDS: MELATONIN 5 MG TABLETS PO SCH (21:31)
[2023-06-26] MEDS: THIAMINE HCL 100 MG TABLET (FP) PO SCH (21:31)
[2023-06-26] MEDS: LIDOCAINE PATCH REMOVAL MC SCH (21:32)
[2023-06-27] MEDS: CYCLOBENZAPRINE HCL 10 MG TABLET (FP) PO SCH ×3 (06:52→21:19)
[2023-06-27] MEDS: methaDONE 40 MG, methaDONE 10 MG PO SCH (06:52)
[2023-06-27] MEDS: hydrOXYzine PAMOATE 25 MG CAPSULE (FP) PO PRN ×2 (06:53→21:19)
[2023-06-27] MEDS: LIDOCAINE 5% TOPICAL PATCH TP SCH (09:54)
[2023-06-27] MEDS: PRENATAL VITAMINS W/ FOLIC ACID TABLET (FP) PO SCH (09:55)
[2023-06-27] MEDS: NICOTINE 14 MG/24 HOURS TOPICAL PATCH TD SCH (09:57)
[2023-06-27] MEDS: NICOTINE POLACRILEX 2 MG GUM BUC PRN ×3 (09:57→21:20)
[2023-06-27] MEDS ORDERED: NICOTINE 14 MG/24 HOURS TOPICAL PATCH TD PRN (12:16)
[2023-06-27] MEDS: QUEtiapine FUMARATE 50 MG TABLET PO SCH (21:19)
[2023-06-27] MEDS: MELATONIN 5 MG TABLETS PO SCH (21:19)
[2023-06-27] MEDS: THIAMINE HCL 100 MG TABLET (FP) PO SCH (21:19)
[2023-06-27] MEDS: LIDOCAINE PATCH REMOVAL MC SCH (21:20)
[2023-06-28] MEDS: methaDONE 40 MG, methaDONE 10 MG PO SCH (06:32)
[2023-06-28] MEDS: CYCLOBENZAPRINE HCL 10 MG TABLET (FP) PO SCH ×3 (06:33→21:22)
[2023-06-28] MEDS: hydrOXYzine PAMOATE 25 MG CAPSULE (FP) PO PRN ×2 (06:33→21:22)
[2023-06-28] MEDS: NICOTINE POLACRILEX 2 MG GUM BUC PRN ×3 (06:34→13:31)
[2023-06-28 07:01] VITALS: RESP 18
[2023-06-28] MEDS: LIDOCAINE 5% TOPICAL PATCH TP SCH (09:41)
[2023-06-28] MEDS: PRENATAL VITAMINS W/ FOLIC ACID TABLET (FP) PO SCH (09:41)
[2023-06-28] MEDS: THIAMINE HCL 100 MG TABLET (FP) PO SCH (21:22)
[2023-06-28] MEDS: MELATONIN 5 MG TABLETS PO SCH (21:22)
[2023-06-28] MEDS: QUEtiapine FUMARATE 50 MG TABLET PO SCH (21:22)
[2023-06-28] MEDS: LIDOCAINE PATCH REMOVAL MC SCH (22:05)
[2023-06-29] MEDS: CYCLOBENZAPRINE HCL 10 MG TABLET (FP) PO SCH ×3 (06:07→21:16)
[2023-06-29] MEDS: methaDONE 40 MG, methaDONE 10 MG PO SCH (06:07)
[2023-06-29] MEDS: hydrOXYzine PAMOATE 25 MG CAPSULE (FP) PO PRN ×2 (06:07→21:16)
[2023-06-29] MEDS: NICOTINE POLACRILEX 2 MG GUM BUC PRN ×2 (06:09→09:49)
[2023-06-29] MEDS: PRENATAL VITAMINS W/ FOLIC ACID TABLET (FP) PO SCH (09:49)
[2023-06-29] MEDS: LIDOCAINE 5% TOPICAL PATCH TP SCH (09:49)
[2023-06-29] MEDS: MELATONIN 5 MG TABLETS PO SCH (21:16)
[2023-06-29] MEDS: THIAMINE HCL 100 MG TABLET (FP) PO SCH (21:16)
[2023-06-29] MEDS: QUEtiapine FUMARATE 50 MG TABLET PO SCH (21:16)
[2023-06-29] MEDS: LIDOCAINE PATCH REMOVAL MC SCH (21:17)
[2023-06-30] MEDS: methaDONE 40 MG, methaDONE 10 MG PO SCH (06:21)
[2023-06-30] MEDS: NICOTINE POLACRILEX 2 MG GUM BUC PRN ×2 (06:22→09:43)
[2023-06-30] MEDS: hydrOXYzine PAMOATE 25 MG CAPSULE (FP) PO PRN (06:22)
[2023-06-30] MEDS: CYCLOBENZAPRINE HCL 10 MG TABLET (FP) PO SCH ×2 (06:22→13:31)
[2023-06-30 07:04] VITALS: TEMP 97.7
[2023-06-30] MEDS: LIDOCAINE 5% TOPICAL PATCH TP SCH (09:42)
[2023-06-30] MEDS: PRENATAL VITAMINS W/ FOLIC ACID TABLET (FP) PO SCH (09:43)
[2023-06-30 17:45] VITALS: BP 152/77; PULSE 100
== END 2023-06-30 17:47 | disposition home or self-care (01) | DRG 772 ==
LOC: YASAS 12:34 → Y3W 12:36
PROVIDERS: ADMIT Allergy & Immunology; ATTEND Psychiatry & Neurology Pain Medicine
PROC: HZ42ZZZ Group Counseling for Substance Abuse Treatment, Cognitive-Behavioral (ICD-10-PCS; principal; 2023-06-18)
DX: F11.20 Opioid dependence, uncomplicated (principal); F10.20 Alcohol dependence, uncomplicated; F14.20 Cocaine dependence, uncomplicated; F12.20 Cannabis dependence, uncomplicated; F17.210 Nicotine dependence, cigarettes, uncomplicated; M54.50 Low back pain, unspecified; G89.29 Other chronic pain; Z68.20 Body mass index [BMI] 20.0-20.9, adult
CPT/HCPCS: 36415; 86803; 87522

== ENCOUNTER 2023-08-23 14:38 | Inpatient (IN) | payer OTHER ==
[2023-08-23 16:57] VITALS: BMI 20.7
[2023-08-23] MEDS ORDERED: BENZONATATE 200 MG CAPSULE PO PRN (18:27)
[2023-08-23] MEDS ORDERED: LOPERAMIDE HCL 2 MG CAPSULE PO PRN (18:27)
[2023-08-23] MEDS ORDERED: IBUPROFEN 400 MG TABLET (FP) PO PRN (18:27)
[2023-08-23] MEDS ORDERED: ONDANSETRON *ODT* 4 MG TABLET SL PRN (18:27)
[2023-08-23] MEDS ORDERED: NALOXONE HCL (KLOXXADO) 8 MG SPRAY NS PRN (18:27)
[2023-08-23] MEDS ORDERED: MAGNESIUM HYDROX 2400MG/30ML ORAL SUSPENSION 30 ML CUP PO PRN (18:27)
[2023-08-23] MEDS ORDERED: hydrOXYzine PAMOATE 25 MG CAPSULE (FP) PO PRN (18:27)
[2023-08-23] MEDS ORDERED: BENZOCAINE/MENTHOL (CHLORASEPTIC ) LOZENGE MM PRN (18:27)
[2023-08-23] MEDS ORDERED: guaiFENesin 600 MG TABLET.ER (FP) PO PRN (18:27)
[2023-08-23] MEDS ORDERED: NALOXONE HCL 0.4 MG/ML VIAL IM PRN (18:27)
[2023-08-23] MEDS ORDERED: ACETAMINOPHEN 325 MG TABLET (FP) PO PRN (18:27)
[2023-08-23] MEDS ORDERED: IBUPROFEN 600 MG TABLET (FP) PO PRN (18:27)
[2023-08-23] MEDS ORDERED: DICYCLOMINE HCL 10 MG CAPSULE PO PRN (18:27)
[2023-08-23] MEDS ORDERED: POLYETHYLENE GLYCOL (HEALTHYLAX) 3350 17 GM PACKET PO PRN (18:27)
[2023-08-23] MEDS ORDERED: MAG HYDROX/AL HYDROX/SIMETH 30 ML UNIT-DOSE CUP PO PRN (18:27)
[2023-08-23] MEDS ORDERED: BISMUTH SUBSALICYLATE 524 MG/30 ML PO PRN (18:27)
[2023-08-23] MEDS ORDERED: METHOCARBAMOL 500 MG TABLET PO PRN (18:27)
[2023-08-23] MEDS: THIAMINE HCL 100 MG TABLET (FP) PO SCH (22:22)
[2023-08-23] MEDS: MELATONIN 5 MG TABLETS PO SCH (22:22)
[2023-08-24] MEDS ORDERED: methaDONE HCL 10 MG TABLET PO SCH (07:54)
[2023-08-24 08:54] LABS: HEMATOCRIT 34.4 % (35.4-49); MCH 29.3 pg (25.7-33.7); MCHC 34.9 g/dl (32.0-35.9); MEAN CELL VOLUME 83.8 fl (80-96); MEAN PLT VOLUME 9.1 fl (7.5-11.1); PLATELET COUNT 190 10^3/uL (134-434); RDW 13.3 % (11.9-15.9); WHITE BLOOD COUNT 4.8 K/mm3 (4.0-10.0)
[2023-08-24 09:04] LABS: CALCIUM 8.5 mg/dL (8.5-10.1)
[2023-08-24 09:05] LABS: BLOOD UREA NITROGEN 18.7 mg/dL (7-18)
[2023-08-24] MEDS ORDERED: methaDONE HCL 10 MG TABLET PO ONE (09:05)
[2023-08-24 09:08] LABS: CREATININE 0.8 mg/dL (0.55-1.3)
[2023-08-24 09:10] LABS: BILIRUBIN,TOTAL 0.4 mg/dL (0.2-1); TOT PROT 6.6 g/dl (6.4-8.2)
[2023-08-24] MEDS: methaDONE 40 MG, methaDONE 20 MG PO SCH (09:19)
[2023-08-24] MEDS ORDERED: methaDONE 40 MG, methaDONE 20 MG PO ONE (09:20)
[2023-08-24] MEDS: PRENATAL VITAMINS W/ FOLIC ACID TABLET (FP) PO SCH (09:58)
[2023-08-24] MEDS: NICOTINE 14 MG/24 HOURS TOPICAL PATCH TD SCH (09:58)
[2023-08-24] MEDS ORDERED: chlordiazePOXIDE HCL 25 MG CAPSULE PO PRN (10:03)
[2023-08-24] MEDS: chlordiazePOXIDE HCL 25 MG CAPSULE PO SCH ×3 (10:53→22:19)
[2023-08-24] MEDS: CYCLOBENZAPRINE HCL 10 MG TABLET (FP) PO PRN (13:26)
[2023-08-24] MEDS: MELATONIN 5 MG TABLETS PO SCH (22:19)
[2023-08-24] MEDS: THIAMINE HCL 100 MG TABLET (FP) PO SCH (22:19)
[2023-08-24] MEDS: QUEtiapine FUMARATE 50 MG TABLET PO SCH (22:19)
[2023-08-25] MEDS: chlordiazePOXIDE HCL 25 MG CAPSULE PO SCH ×4 (05:58→22:15)
[2023-08-25] MEDS: methaDONE 40 MG, methaDONE 20 MG PO SCH (06:03)
[2023-08-25] MEDS: CYCLOBENZAPRINE HCL 10 MG TABLET (FP) PO PRN ×2 (06:06→22:17)
[2023-08-25] MEDS ORDERED: COLLOIDAL OATMEAL 1 BAR EACH TP PRN (09:53)
[2023-08-25] MEDS: PRENATAL VITAMINS W/ FOLIC ACID TABLET (FP) PO SCH (10:12)
[2023-08-25] MEDS: NICOTINE POLACRILEX 2 MG GUM BUC PRN (10:14)
[2023-08-25] MEDS: NICOTINE 14 MG/24 HOURS TOPICAL PATCH TD SCH (10:14)
[2023-08-25] MEDS: MELATONIN 5 MG TABLETS PO SCH (22:15)
[2023-08-25] MEDS: THIAMINE HCL 100 MG TABLET (FP) PO SCH (22:15)
[2023-08-25] MEDS: QUEtiapine FUMARATE 50 MG TABLET PO SCH (22:15)
[2023-08-26] MEDS: chlordiazePOXIDE HCL 25 MG CAPSULE PO SCH ×4 (05:17→22:18)
[2023-08-26] MEDS: methaDONE 40 MG, methaDONE 20 MG PO SCH (05:18)
[2023-08-26] MEDS: CYCLOBENZAPRINE HCL 10 MG TABLET (FP) PO PRN ×2 (05:21→17:50)
[2023-08-26] MEDS: NICOTINE 14 MG/24 HOURS TOPICAL PATCH TD SCH (10:12)
[2023-08-26] MEDS: NICOTINE POLACRILEX 2 MG GUM BUC PRN ×2 (10:12→17:50)
[2023-08-26] MEDS: PRENATAL VITAMINS W/ FOLIC ACID TABLET (FP) PO SCH (10:12)
[2023-08-26] MEDS: THIAMINE HCL 100 MG TABLET (FP) PO SCH (22:17)
[2023-08-26] MEDS: MELATONIN 5 MG TABLETS PO SCH (22:17)
[2023-08-26] MEDS: QUEtiapine FUMARATE 50 MG TABLET PO SCH (22:17)
[2023-08-27] MEDS ORDERED: chlordiazePOXIDE HCL 10 MG CAPSULE PO PRN
[2023-08-27] MEDS: chlordiazePOXIDE HCL 10 MG CAPSULE PO SCH ×2 (06:10→10:22)
[2023-08-27] MEDS: methaDONE 40 MG, methaDONE 20 MG PO SCH (06:10)
[2023-08-27] MEDS: CYCLOBENZAPRINE HCL 10 MG TABLET (FP) PO PRN (06:10)
[2023-08-27] MEDS: PRENATAL VITAMINS W/ FOLIC ACID TABLET (FP) PO SCH (10:22)
[2023-08-27] MEDS: NICOTINE 14 MG/24 HOURS TOPICAL PATCH TD SCH (10:24)
[2023-08-27 13:00] VITALS: BP 140/89; PULSE 66; RESP 18; TEMP 98.1
[2023-08-28] MEDS ORDERED: chlordiazePOXIDE HCL 10 MG CAPSULE PO SCH (05:00)
[2023-08-29] MEDS ORDERED: chlordiazePOXIDE HCL 10 MG CAPSULE PO ONE (05:00)
== END 2023-08-27 13:53 | disposition left against medical advice (07) | DRG 770 ==
LOC: YASAS 14:38 → Y3N 19:13
PROVIDERS: ADMIT Allergy & Immunology; ATTEND Surgery
PROC: HZ2ZZZZ Detoxification Services for Substance Abuse Treatment (ICD-10-PCS; principal; 2023-08-23)
DX: F10.230 Alcohol dependence with withdrawal, uncomplicated (principal); F11.20 Opioid dependence, uncomplicated; F17.210 Nicotine dependence, cigarettes, uncomplicated; F19.24 Other psychoactive substance dependence with psychoactive substance-induced mood disorder; G47.00 Insomnia, unspecified; B18.2 Chronic viral hepatitis C; M54.50 Low back pain, unspecified; G89.29 Other chronic pain; Z62.810 Personal history of physical and sexual abuse in childhood; Z28.310 Unvaccinated for COVID-19; Z28.9 Immunization not carried out for unspecified reason
CPT/HCPCS: 36415; 80053; 85027; 86780; 87635

== ENCOUNTER 2024-04-04 11:00 | Inpatient (IN) | payer OTHER ==
[2024-04-04 11:32] VITALS: BMI 19.8
[2024-04-04] MEDS ORDERED: ONDANSETRON *ODT* 4 MG TABLET SL PRN (13:34)
[2024-04-04] MEDS ORDERED: IBUPROFEN 600 MG TABLET (FP) PO PRN (13:34)
[2024-04-04] MEDS ORDERED: MAG HYDROX/AL HYDROX/SIMETH 30 ML UNIT-DOSE CUP PO PRN (13:34)
[2024-04-04] MEDS ORDERED: ACETAMINOPHEN 325 MG TABLET (FP) PO PRN (13:34)
[2024-04-04] MEDS ORDERED: MAGNESIUM HYDROX 2400MG/30ML ORAL SUSPENSION 30 ML CUP PO PRN (13:34)
[2024-04-04] MEDS ORDERED: BENZONATATE 200 MG CAPSULE PO PRN (13:34)
[2024-04-04] MEDS ORDERED: DICYCLOMINE HCL 10 MG CAPSULE PO PRN (13:34)
[2024-04-04] MEDS ORDERED: BISMUTH SUBSALICYLATE 262 MG/15 ML BTL PO PRN (13:34)
[2024-04-04] MEDS ORDERED: LOPERAMIDE HCL 2 MG CAPSULE PO PRN (13:34)
[2024-04-04] MEDS ORDERED: POLYETHYLENE GLYCOL (HEALTHYLAX) 3350 17 GM PACKET PO PRN (13:34)
[2024-04-04] MEDS ORDERED: BENZOCAINE/MENTHOL (CHLORASEPTIC ) LOZENGE MM PRN (13:34)
[2024-04-04] MEDS ORDERED: NALOXONE HCL (KLOXXADO) 8 MG SPRAY NS PRN (13:34)
[2024-04-04] MEDS ORDERED: NALOXONE HCL 0.4 MG/ML VIAL IM PRN (13:34)
[2024-04-04] MEDS ORDERED: guaiFENesin 600 MG TABLET.ER (FP) PO PRN (13:34)
[2024-04-04] MEDS ORDERED: IBUPROFEN 400 MG TABLET (FP) PO PRN (13:34)
[2024-04-04] MEDS ORDERED: PRENATAL VITAMINS W/ FOLIC ACID TABLET (FP) PO ONE (14:33)
[2024-04-04] MEDS: NICOTINE 21 MG/24 HOURS TOPICAL PATCH TD SCH (14:34)
[2024-04-04] MEDS: PRENATAL VITAMINS W/ FOLIC ACID TABLET (FP) PO SCH (14:34)
[2024-04-04] MEDS: chlordiazePOXIDE HCL 25 MG CAPSULE PO SCH (17:51)
[2024-04-04] MEDS: THIAMINE 100 MG TABLET PO SCH (22:09)
[2024-04-04] MEDS: QUEtiapine FUMARATE 50 MG TABLET PO SCH (22:09)
[2024-04-04] MEDS: MELATONIN 5 MG TABLETS PO SCH (22:10)
[2024-04-05] MEDS: methaDONE 80 MG, methaDONE 10 MG PO SCH (05:31)
[2024-04-05] MEDS ORDERED: methaDONE HCL 10 MG TABLET PO SCH (06:00)
[2024-04-05 11:49] LABS: HEMATOCRIT 35.8 % (35.4-49); HEMOGLOBIN 12.2 GM/dL (11.7-16.9); MEAN CELL VOLUME 85.4 fl (80-96); MEAN PLT VOLUME 9.3 fl (7.5-11.1); PLATELET COUNT 210 10^3/uL (134-434); RBC 4.19 M/mm3 (4.00-5.60); RDW 13.4 % (11.9-15.9); WHITE BLOOD COUNT 4.8 K/mm3 (4.0-10.0)
[2024-04-05 11:50] LABS: POTASSIUM 3.6 mmol/L (3.5-5.1)
[2024-04-05 11:57] LABS: CALCIUM 9.3 mg/dL (8.5-10.1)
[2024-04-05 11:58] LABS: ALBUMIN 3.9 g/dl (3.4-5.0); BLOOD UREA NITROGEN 14.6 mg/dL (7-18)
[2024-04-05 12:02] LABS: BILIRUBIN,TOTAL 0.4 mg/dL (0.2-1)
[2024-04-05 12:03] LABS: TOT PROT 8.2 g/dl (6.4-8.2)
[2024-04-05] MEDS: LACTULOSE 20 GM/30 ML UDC (FOR ORAL USE ONLY) PO SCH (17:11)
[2024-04-05] MEDS: hydrOXYzine PAMOATE 25 MG CAPSULE (FP) PO PRN (22:34)
[2024-04-05] MEDS: METHOCARBAMOL 500 MG TABLET PO PRN (22:34)
[2024-04-06] MEDS: QUEtiapine FUMARATE 50 MG TABLET PO SCH (00:05)
[2024-04-06] MEDS: chlordiazePOXIDE HCL 25 MG CAPSULE PO PRN (05:58)
[2024-04-06] MEDS: chlordiazePOXIDE HCL 25 MG CAPSULE PO SCH (06:00)
[2024-04-07] MEDS ORDERED: chlordiazePOXIDE HCL 10 MG CAPSULE PO PRN
[2024-04-07] MEDS: chlordiazePOXIDE HCL 10 MG CAPSULE PO SCH (05:51)
[2024-04-08] MEDS: chlordiazePOXIDE HCL 10 MG CAPSULE PO SCH (05:57)
[2024-04-08 21:15] VITALS: RESP 16
[2024-04-09] MEDS: chlordiazePOXIDE HCL 10 MG CAPSULE PO ONE (06:00)
[2024-04-09 09:13] VITALS: BP 117/74; PULSE 64; TEMP 97.8
== END 2024-04-09 10:00 | disposition home or self-care (01) | DRG 773 ==
LOC: YASAS 11:00 → Y6N 14:05
PROVIDERS: ADMIT Allergy & Immunology; ATTEND Surgery
PROC: HZ2ZZZZ Detoxification Services for Substance Abuse Treatment (ICD-10-PCS; principal; 2024-04-04)
DX: F10.230 Alcohol dependence with withdrawal, uncomplicated (principal); F13.230 Sedative, hypnotic or anxiolytic dependence with withdrawal, uncomplicated; F11.20 Opioid dependence, uncomplicated; F14.20 Cocaine dependence, uncomplicated; F17.210 Nicotine dependence, cigarettes, uncomplicated; F31.9 Bipolar disorder, unspecified; F19.280 Other psychoactive substance dependence with psychoactive substance-induced anxiety disorder; F19.282 Other psychoactive substance dependence with psychoactive substance-induced sleep disorder; F19.24 Other psychoactive substance dependence with psychoactive substance-induced mood disorder; F41.9 Anxiety disorder, unspecified; B18.2 Chronic viral hepatitis C; R79.89 Other specified abnormal findings of blood chemistry; R63.4 Abnormal weight loss; Z68.1 Body mass index [BMI] 19.9 or less, adult; Z59.00 Homelessness unspecified
CPT/HCPCS: 36415; 80053; 80305; 80307; 82140; 85027; 86780; 93005; 93010